=== PATIENT | male | born 1955 | race Caucasian/White ===

== ENCOUNTER 2023-08-20 01:08 | Inpatient (IN) | payer MEDICARE ==
[2023-08-20] MEDS: SODIUM CHLORIDE 0.9% 1,000 ML IV ONE ×2 (01:11→02:45)
[2023-08-20] MEDS: ETOMIDATE 2 MG/ML 10 ML VIAL IVP STA (01:12)
[2023-08-20 01:13] LABS: Glucose,Whole Blood 183 mg/dL (70-110)
[2023-08-20] MEDS: SUCCINYLCHOLINE CHLORIDE 200 MG/10 ML VIAL IV ONE (01:13)
--- NOTE | 2023-08-20 01:17 | ED ---
Altered Mental Status HPI - General Stated Complaint: Difficulty Breathing Time Seen by Provider: 08/20/23 01:08 Source: EMS Mode of arrival: EMS Limitations: altered mental status - History of Present Illness Initial Comments: This patient is 67-year-old man brought by ambulance to have evaluation. They report they were called to the scene for shortness of breath. As they were in the process of loading and transporting the patient to the hospital he became less responsive and they stated that they needed to support his respirations with the [id number]. The patient is unresponsive on arrival not able to give any history. EMS reports patient's systolic blood pressure was over 200 during transport MD Complaint: altered mental status, other (Dyspnea) -: unknown Severity: severe Treatments Prior to Arrival: oxygen - Related Data Home Medications Medication Instructions Recorded Confirmed Amiodarone [Cordarone] 200 mg PO DAILY 08/20/23 08/20/23 Cholecalciferol [Vitamin D3 (25 25 mcg PO DAILY 08/20/23 08/20/23 Mcg = 1000 Iu)] Ezetimibe [Zetia] 10 mg PO DAILY 08/20/23 08/20/23 Glucosamine/Chondr Escobedo A Sod [Osteo 1 tab PO DAILY 08/20/23 08/20/23 Bi-Flex Caplet] Metoprolol Succinate (ER) [Toprol 100 mg PO DAILY 08/20/23 08/20/23 XL] Multivitamins, Thera [Multivitamin 1 tab PO DAILY 08/20/23 08/20/23 (formulary)] Pravastatin Sodium [Pravachol] 40 mg PO HS 08/20/23 08/20/23 Rivaroxaban [Xarelto] 20 mg PO DAILY 08/20/23 08/20/23 Tiotropium 18 Mcg/Puff [Spiriva] 1 puff INHALATION RT-DAILY 08/20/23 08/20/23 Zinc Gluconate [Zinc] 50 mg PO DAILY 08/20/23 08/20/23 Previous Rx's Medication Instructions Recorded Budesonide-Formot 160-4.5 Mcg 2 puff INHALATION RT-BID #1 each 08/24/23 [Symbicort 160-4.5 Mcg Inhaler] Cefdinir 300 mg PO Q12HR #2 cap 08/24/23 Nicotine 21Mg/24Hr Patch [Habitrol] 1 patch TRANSDERM DAILY #30 patch 08/24/23 Pantoprazole [Protonix] 40 mg PO AC-BRKFST #60 tab 08/24/23 predniSONE [Deltasone] 20 mg PO DAILY #2 tab 08/24/23 Allergies Allergy/AdvReac Type Severity Reaction Status Date / Time No Known Allergies Allergy Verified 08/20/23 08:48 Review of Systems ROS Statement: Those systems with pertinent positive or pertinent negative responses have been documented in the HPI. ROS Other: All systems not noted in ROS Statement are negative. Limitations: ROS unobtainable due to patients medical condition Respiratory: Reports: dyspnea General Exam Limitations: altered mental status General appearance: obtunded Head exam: Present: atraumatic, normocephalic Eye exam: Present: normal appearance, PERRL. Absent: scleral icterus, conjunctival injection ENT exam: Present: normal oropharynx Neck exam: Present: normal inspection. Absent: tenderness Respiratory exam: Present: respiratory distress, rales Cardiovascular Exam: Present: regular rate, normal rhythm, normal heart sounds. Absent: diastolic murmur, rubs, gallop GI/Abdominal exam: Present: soft. Absent: distended, tenderness, guarding, rebound, rigid, mass Extremities exam: Present: normal inspection, normal capillary refill. Absent: pedal edema, calf tenderness Back exam: Present: normal inspection Neurological exam: Present: altered, CN II-XII intact. Absent: motor sensory deficit Skin exam: Present: warm, intact, normal color, diaphoretic. Absent: rash Course Vital Signs 08/20/23 08/20/23 08/20/23 01:11 01:31 02:06 Temperature Pulse Rate 72 Respiratory 10 L Rate Blood Pressure 174/89 O2 Sat by Pulse 99 Oximetry Fraction of 100 50 Inspired Oxygen (FIO2) 08/20/23 08/20/23 08/20/23 02:10 02:23 02:30 Temperature 97.9 F Pulse Rate 77 76 78 Respiratory 15 28 H 28 H Rate Blood Pressure 79/39 76/42 75/38 O2 Sat by Pulse 98 96 96 Oximetry Fraction of Inspired Oxygen (FIO2) 08/20/23 08/20/23 08/20/23 02:40 02:50 03:00 Temperature Pulse Rate 77 75 74 Respiratory 28 H 28 H 28 H Rate Blood Pressure 72/38 73/43 72/38 O2 Sat by Pulse 95 95 95 Oximetry Fraction of Inspired Oxygen (FIO2) 08/20/23 08/20/23 08/20/23 03:10 03:20 03:30 Temperature Pulse Rate 72 72 70 Respiratory 28 H 28 H 28 H Rate Blood Pressure 69/38 72/37 73/41 O2 Sat by Pulse 96 96 96 Oximetry Fraction of Inspired Oxygen (FIO2) 08/20/23 08/20/23 08/20/23 03:40 03:50 04:00 Temperature 97.0 F L Pulse Rate 68 66 61 Respiratory 28 H 28 H 28 H Rate Blood Pressure 77/38 73/43 79/51 O2 Sat by Pulse 96 96 98 Oximetry Fraction of Inspired Oxygen (FIO2) 08/20/23 08/20/23 08/20/23 04:05 04:10 04:15 Temperature 96.8 F L Pulse Rate 60 60 58 L Respiratory 28 H 28 H 28 H Rate Blood Pressure 91/65 91/65 104/65 O2 Sat by Pulse 100 100 99 Oximetry Fraction of Inspired Oxygen (FIO2) 08/20/23 08/20/23 08/20/23 04:20 04:25 04:30 Temperature Pulse Rate 58 L 57 L 58 L Respiratory 28 H 28 H 28 H Rate Blood Pressure 102/64 102/61 104/65 O2 Sat by Pulse 99 99 98 Oximetry Fraction of Inspired Oxygen (FIO2) 08/20/23 08/20/23 08/20/23 04:50 04:55 05:00 Temperature Pulse Rate 58 L 58 L 58 L Respiratory 28 H 25 H 28 H Rate Blood Pressure 127/64 101/52 84/44 O2 Sat by Pulse 100 99 99 Oximetry Fraction of Inspired Oxygen (FIO2) 08/20/23 08/20/23 08/20/23 05:05 05:10 05:15 Temperature Pulse Rate 58 L 57 L 57 L Respiratory 28 H 28 H 28 H Rate Blood Pressure 93/57 96/56 99/61 O2 Sat by Pulse 99 99 99 Oximetry Fraction of Inspired Oxygen (FIO2) 08/20/23 05:20 Temperature Pulse Rate 57 L Respiratory 28 H Rate Blood Pressure 100/58 O2 Sat by Pulse 99 Oximetry Fraction of Inspired Oxygen (FIO2) Procedures - Central Line Placement Right Femoral Consent Obtained: emergent situation Patient Placed on Monitor/Pulse Ox: Yes Prep: mask, gown, gloves Central Line Prep: Chlorhexidine scrub Local Anesthesia Used: Lidocaine 1% Central Line Lumen Inserted: triple Central Line Position: good blood return, all ports aspirated, flushed, capped, sutured in place with 3-0 nylon Dressing Applied: Tegaderm Patient Tolerated Procedure: well, no complications Complications: none - Intubation Sedative: Etomidate Paralytic: Succinylcholine Laryngoscope: Ray Size: 3 ET Tube Size: 8 ET Tube Uncuffed: No Tube Secured Depth (cm): 25 Tube Secured Location: lips Tube Placement Confirmation: visualized tube passing through cords, equal breath sounds bilaterally, no breath sounds over epigastrium, confirmation by capnometry Patient Tolerated Procedure: well, no complications Intubation Complications: none Medical Decision Making - Medical Decision Making Patient is a 67-year-old man arriving by ambulance in severe respiratory distress. The patient is unresponsive on arrival and therefore intubated after IV line is started and medications can be administered. See the procedure note. The clinical picture appears consistent with hypertensive emergency and acute respiratory failure. Following intubation, the patient's blood pressure declines and he is given initial fluid bolus and then as he remains hypertensive, patient has central line placement for pressor administration. Blood gases do show acidosis present. The patient is given 1 amp of bicarb and ventilator settings adjusted. Suspect there is degree of underlying COPD though no history known Patient is seen by pulmonology service, be admitted to the ICU. CT scan of the brain does not reveal acute pathology, by my interpretation The patient had chest x-ray which I interpreted as negative for acute infil trate, pneumothorax, congestive heart failure Case discussed with medicine on-call and patient be admitted to ICU. Was pt. sent in by a medical professional or institution (JIMMY King, INDUSTRIAL ECOLOGY TECHNICIAN, urgent care, hospital, or skilled nursing...) When possible be specific @ -[No] Did you speak to anyone other than the patient for history (EMS, parent, family, police, friend...)? What history was obtained from this source @ -[EMS gave most of the history as the patient is in severe respiratory distress Did you review nursing and triage notes (agree or disagree)? Why? @ -[I reviewed and agree with nursing and triage notes] Were old charts reviewed (outside hosp., previous admission, EMS record, old EKG, old radiological studies, urgent care reports/EKG's, skilled nursing records)? Report findings @ -[No old charts were reviewed] Differential Diagnosis (chest pain, altered mental status, abdominal pain women, abdominal pain men, vaginal bleeding, weakness, fever, dyspnea, syncope, headache, dizziness, GI bleed, back pain, seizure, CVA, palpatations, mental health, musculoskeletal)? @ -[Differential Dyspnea: Coronary syndrome, arrhythmia, tamponade, asthma, COPD, pulmonary embolism, pneumonia, pneumothorax, pulmonary effusion, anaphylaxis, diabetic ketoacidosis, flailed chest, pulmonary contusion, diaphragmatic rupture, anemia, neuromuscular, this is not meant to be an all-inclusive list. EKG interpreted by me (3pts min.). @ -[I interpreted as above X-rays interpreted by me (1pt min.). @ -[I interpreted as above CT interpreted by me (1pt min.). @ -[I interpreted as above U/S interpreted by me (1pt. min.). @ -[None done] What testing was considered but not performed or refused? (CT, X-rays, U/S, labs)? Why? @ -[None] What meds were considered but not given or refused? Why? @ -[None] Did you discuss the management of the patient with other professionals (professionals i.e. , PA, INDUSTRIAL ECOLOGY TECHNICIAN, lab, RT, psych nurse, social science manager, automotive software engineer, teacher, mechanical engineering officer, heel caser)? Give summary @ -[The case is discussed with admitting physician and also with pulmonology on-call for critical care management Was smoking cessation discussed for >3mins.? @ -[No] Was critical care preformed (if so, how long)? @ -Yes, 50 minutes Were there social determinants of health that impacted care today? How? (Homelessness, low income, unemployed, alcoholism, drug addiction, transportation, low edu. Level, literacy, decrease access to med. care, senior living, rehab)? @ -[No] Was there de-escalation of care discussed even if they declined (Discuss DNR or withdrawal of care, Hospice)? DNR status @ -[No] What co-morbidities impacted this encounter? (DM, HTN, Smoking, COPD, CAD, Cancer, CVA, ARF, Chemo, Hep., AIDS, mental health diagnosis, sleep apnea, morbid obesity)? @ -[None] Was patient admitted / discharged? Hospital course, mention meds given and route, prescriptions, significant lab abnormalities, going to OR and other pertinent info. @ -[See above Undiagnosed new problem with uncertain prognosis? @ -[No] Drug Therapy requiring intensive monitoring for toxicity (Heparin, Nitro, Insulin, Cardizem)? @ -[Yes, propofol Were any procedures done? @ -[No] Diagnosis/symptom? @ -[Acute hypercarbic respiratory failure Probable COPD Acute, or Chronic, or Acute on Chronic? @ -[Acute Uncomplicated (without systemic symptoms) or Complicated (systemic symptoms)? @ -[Complicated Side effects of treatment? @ -[No] Exacerbation, Progression, or Severe Exacerbation? @ -[No] Poses a threat to life or bodily function? How? (Chest pain, [place], [place], pneumonia, PE, COPD, DKA, ARF, appy, cholecystitis, CVA, Diverticulitis, Homicidal, Suicidal, threat to staff... and all critical care pts) @ -[Yes - Lab Data Result diagrams: 08/23/23 05:38 08/23/23 05:38 Lab Results 08/20/23 08/20/23 08/20/23 Range/Units 01:11 01:43 01:43 WBC 14.4 H (3.8-10.6) k/uL RBC 5.22 (4.30-5.90) m/uL Hgb 16.6 (13.0-17.5) gm/dL Hct 53.2 H (39.0-53.0) % MCV 102.0 H (80.0-100.0) fL MCH 31.8 (25.0-35.0) pg MCHC 31.2 (31.0-37.0) g/dL RDW 12.7 (11.5-15.5) % Plt Count 177 (150-450) k/uL MPV 11.2 Neutrophils % 68 % Lymphocytes % 16 % Monocytes % 11 % Eosinophils % 1 % Basophils % 0 % Neutrophils # 9.8 H (1.3-7.7) k/uL Lymphocytes # 2.3 (1.0-4.8) k/uL Monocytes # 1.6 H (0-1.0) k/uL Eosinophils # 0.2 (0-0.7) k/uL Basophils # 0.1 (0-0.2) k/uL Hypochromasia Slight Macrocytosis Slight PT 13.0 H (10.0-12.5) sec INR 1.2 H (<1.2) APTT 24.6 (22.0-30.0) sec D-Dimer 0.41 (<0.60) mg/L FEU Sample Site ABG pH (7.35-7.45) ABG pCO2 (35-45) mmHg ABG pO2 (83-108) mmHg ABG HCO3 (21-25) mmol/L ABG Total CO2 (19-24) mmol/L ABG O2 Saturation (94-97) % ABG Base Excess mmol/L Wicho Test FiO2 % Sodium (137-145) mmol/L Potassium (3.5-5.1) mmol/L Chloride (98-107) mmol/L Carbon Dioxide (22-30) mmol/L Anion Gap mmol/L BUN (9-20) mg/dL Creatinine (0.66-1.25) mg/dL Est GFR (CKD-EPI)AfAm (>60 ml/min/1.73 sqM) Est GFR (CKD-EPI)NonAf (>60 ml/min/1.73 sqM) Glucose (74-99) mg/dL POC Glucose (mg/dL) 183 H (70-110) mg/dL POC Glu Front Line Supervisor ID Clint Vasquez Plasma Lactic Acid Kyle (0.7-2.0) mmol/L Calcium (8.4-10.2) mg/dL Magnesium (1.6-2.3) mg/dL Total Bilirubin (0.2-1.3) mg/dL AST (17-59) U/L ALT (4-49) U/L Alkaline Phosphatase (38-126) U/L Troponin I (0.000-0.034) ng/mL NT-Pro-B Natriuret Pep pg/mL Total Protein (6.3-8.2) g/dL Albumin (3.5-5.0) g/dL Urine Color Urine Appearance (Clear) Urine pH (5.0-8.0) Ur Specific [place] (1.001-1.035) Urine Protein (Negative) Urine Glucose (UA) (Negative) Urine Ketones (Negative) Urine Blood (Negative) Urine Nitrite (Negative) Urine Bilirubin (Negative) Urine Urobilinogen (<2.0) mg/dL Ur Leukocyte Esterase (Negative) Urine RBC (0-5) /hpf Urine WBC (0-5) /hpf Hyaline Casts (0-2) /lpf Urine Mucus (None) /hpf Urine Yeast (Budding) (None) /hpf Influenza Type A (PCR) (Not Detectd) Influenza Type B (PCR) (Not Detectd) RSV (PCR) (Not Detectd) SARS-CoV-2 (PCR) (Not Detectd) 08/20/23 08/20/23 08/20/23 Range/Units 01:43 01:43 01:43 WBC (3.8-10.6) k/uL RBC (4.30-5.90) m/uL Hgb (13.0-17.5) gm/dL Hct (39.0-53.0) % MCV (80.0-100.0) fL MCH (25.0-35.0) pg MCHC (31.0-37.0) g/dL RDW (11.5-15.5) % Plt Count (150-450) k/uL MPV Neutrophils % % Lymphocytes % % Monocytes % % Eosinophils % % Basophils % % Neutrophils # (1.3-7.7) k/uL Lymphocytes # (1.0-4.8) k/uL Monocytes # (0-1.0) k/uL Eosinophils # (0-0.7) k/uL Basophils # (0-0.2) k/uL Hypochromasia Macrocytosis PT (10.0-12.5) sec INR (<1.2) APTT (22.0-30.0) sec D-Dimer (<0.60) mg/L FEU Sample Site ABG pH (7.35-7.45) ABG pCO2 (35-45) mmHg ABG pO2 (83-108) mmHg ABG HCO3 (21-25) mmol/L ABG Total CO2 (19-24) mmol/L ABG O2 Saturation (94-97) % ABG Base Excess mmol/L Wicho Test FiO2 % Sodium 142 (137-145) mmol/L Potassium 4.8 (3.5-5.1) mmol/L Chloride 105 (98-107) mmol/L Carbon Dioxide 30 (22-30) mmol/L Anion Gap 7 mmol/L BUN 19 (9-20) mg/dL Creatinine 0.57 L (0.66-1.25) mg/dL Est GFR (CKD-EPI)AfAm >90 (>60 ml/min/1.73 sqM) Est GFR (CKD-EPI)NonAf >90 (>60 ml/min/1.73 sqM) Glucose 212 H (74-99) mg/dL POC Glucose (mg/dL) (70-110) mg/dL POC Glu Front Line Supervisor ID Plasma Lactic Acid Kyle 1.0 (0.7-2.0) mmol/L Calcium 9.9 (8.4-10.2) mg/dL Magnesium 1.8 (1.6-2.3) mg/dL Total Bilirubin 0.9 (0.2-1.3) mg/dL AST 28 (17-59) U/L ALT 20 (4-49) U/L Alkaline Phosphatase 121 (38-126) U/L Troponin I <0.012 (0.000-0.034) ng/mL NT-Pro-B Natriuret Pep 291 pg/mL Total Protein 7.7 (6.3-8.2) g/dL Albumin 4.5 (3.5-5.0) g/dL Urine Color Urine Appearance (Clear) Urine pH (5.0-8.0) Ur Specific [place] (1.001-1.035) Urine Protein (Negative) Urine Glucose (UA) (Negative) Urine Ketones (Negative) Urine Blood (Negative) Urine Nitrite (Negative) Urine Bilirubin (Negative) Urine Urobilinogen (<2.0) mg/dL Ur Leukocyte Esterase (Negative) Urine RBC (0-5) /hpf Urine WBC (0-5) /hpf Hyaline Casts (0-2) /lpf Urine Mucus (None) /hpf Urine Yeast (Budding) (None) /hpf Influenza Type A (PCR) (Not Detectd) Influenza Type B (PCR) (Not Detectd) RSV (PCR) (Not Detectd) SARS-CoV-2 (PCR) (Not Detectd) 08/20/23 08/20/23 08/20/23 Range/Units 01:55 02:04 02:05 WBC (3.8-10.6) k/uL RBC (4.30-5.90) m/uL Hgb (13.0-17.5) gm/dL Hct (39.0-53.0) % MCV (80.0-100.0) fL MCH (25.0-35.0) pg MCHC (31.0-37.0) g/dL RDW (11.5-15.5) % Plt Count (150-450) k/uL MPV Neutrophils % % Lymphocytes % % Monocytes % % Eosinophils % % Basophils % % Neutrophils # (1.3-7.7) k/uL Lymphocytes # (1.0-4.8) k/uL Monocytes # (0-1.0) k/uL Eosinophils # (0-0.7) k/uL Basophils # (0-0.2) k/uL Hypochromasia Macrocytosis PT (10.0-12.5) sec INR (<1.2) APTT (22.0-30.0) sec D-Dimer (<0.60) mg/L FEU Sample Site rrad ABG pH 7.11 L* (7.35-7.45) ABG pCO2 94 H* (35-45) mmHg ABG pO2 >400 H (83-108) mmHg ABG HCO3 30 H (21-25) mmol/L ABG Total CO2 33 H (19-24) mmol/L ABG O2 Saturation 100.0 H (94-97) % ABG Base Excess 0.6 mmol/L Wicho Test Yes FiO2 100 % Sodium (137-145) mmol/L Potassium (3.5-5.1) mmol/L Chloride (98-107) mmol/L Carbon Dioxide (22-30) mmol/L Anion Gap mmol/L BUN (9-20) mg/dL Creatinine (0.66-1.25) mg/dL Est GFR (CKD-EPI)AfAm (>60 ml/min/1.73 sqM) Est GFR (CKD-EPI)NonAf (>60 ml/min/1.73 sqM) Glucose (74-99) mg/dL POC Glucose (mg/dL) (70-110) mg/dL POC Glu Front Line Supervisor ID Plasma Lactic Acid Kyle (0.7-2.0) mmol/L Calcium (8.4-10.2) mg/dL Magnesium (1.6-2.3) mg/dL Total Bilirubin (0.2-1.3) mg/dL AST (17-59) U/L ALT (4-49) U/L Alkaline Phosphatase (38-126) U/L Troponin I (0.000-0.034) ng/mL NT-Pro-B Natriuret Pep pg/mL Total Protein (6.3-8.2) g/dL Albumin (3.5-5.0) g/dL Urine Color Colorless Urine Appearance Clear (Clear) Urine pH 6.5 (5.0-8.0) Ur Specific [place] 1.021 (1.001-1.035) Urine Protein 3+ H (Negative) Urine Glucose (UA) Negative (Negative) Urine Ketones 1+ H (Negative) Urine Blood Small H (Negative) Urine Nitrite Negative (Negative) Urine Bilirubin Negative (Negative) Urine Urobilinogen <2.0 (<2.0) mg/dL Ur Leukocyte Esterase Negative (Negative) Urine RBC 8 H (0-5) /hpf Urine WBC 2 (0-5) /hpf Hyaline Casts 6 H (0-2) /lpf Urine Mucus Rare H (None) /hpf Urine Yeast (Budding) Rare H (None) /hpf Influenza Type A (PCR) Not Detected (Not Detectd) Influenza Type B (PCR) Not Detected (Not Detectd) RSV (PCR) Not Detected (Not Detectd) SARS-CoV-2 (PCR) Not Detected (Not Detectd) - EKG Data -: EKG Interpreted by Nv EKG shows normal: sinus rhythm, intervals (Normal), QRS complexes Rate: normal (Rate 74 bpm) Interpretation: nonspecific ST-T wave changes Critical Care Time Critical Care Time: Yes (40 minutes) Disposition Clinical Impression: Acute respiratory failure, Respiratory acidosis, Leukocytosis Disposition: ADMITTED IP TO THIS HOSP Condition: Stable Is patient prescribed a controlled substance at d/c from ED?: No
[2023-08-20] MEDS: LORazepam 2 MG/ML INJ IV STA ×2 (01:25→02:19)
[2023-08-20] MEDS: MORPHINE SULFATE 4 MG/ML SYRINGE IV STA (01:47)
[2023-08-20 01:57] LABS: Allen Test Performed? Yes
[2023-08-20 01:58] LABS: ABG Base Excess 0.6 mmol/L; ABG HCO3 30 mmol/L (21-25); ABG PO2 >400 mmHg (83-108); ABG TCO2 33 mmol/L (19-24)
[2023-08-20 02:03] LABS: ALT 20 U/L (4-49); AST 28 U/L (17-59); African American GFR (CKD) >90 (>60 ml/min/1.73 sqM); Albumin 4.5 g/dL (3.5-5.0); Alkaline Phosphatase 121 U/L (38-126); Anion Gap 7 mmol/L; Blood Urea Nitrogen 19 mg/dL (9-20); Calcium 9.9 mg/dL (8.4-10.2); Carbon Dioxide 30 mmol/L (22-30); Chloride 105 mmol/L (98-107); Glucose 212 mg/dL (74-99); Magnesium 1.8 mg/dL (1.6-2.3); Non-African American GFR(CKD) >90 (>60 ml/min/1.73 sqM); Potassium 4.8 mmol/L (3.5-5.1); Sodium 142 mmol/L (137-145); Total Bilirubin 0.9 mg/dL (0.2-1.3); Total Protein 7.7 g/dL (6.3-8.2)
[2023-08-20 02:08] LABS: ABG PCO2 94 mmHg (35-45); ABG PH 7.11 (7.35-7.45)
[2023-08-20 02:12] LABS: NT-Pro-B-Type Natriuretic Pept 291 pg/mL
[2023-08-20 02:23] LABS: Basophils # (A) 0.1 k/uL (0-0.2); Basophils % (A) 0 %; Eosinophils # (A) 0.2 k/uL (0-0.7); Eosinophils % (A) 1 %; HCT 53.2 % (39.0-53.0); HGB 16.6 gm/dL (13.0-17.5); Hypochromasia Slight; Lymphocytes # (A) 2.3 k/uL (1.0-4.8); Lymphocytes % (A) 16 %; MCH 31.8 pg (25.0-35.0); MCHC 31.2 g/dL (31.0-37.0); Macrocytosis Slight; Mean Platelet Volume 11.2; Monocytes # (A) 1.6 k/uL (0-1.0); Monocytes % (A) 11 %; Neutrophils # (A) 9.8 k/uL (1.3-7.7); Neutrophils % (A) 68 %; Platelet Count 177 k/uL (150-450); RBC 5.22 m/uL (4.30-5.90); RDW 12.7 % (11.5-15.5); WBC 14.4 k/uL (3.8-10.6)
[2023-08-20 02:33] LABS: INR 1.2 (<1.2); Partial Thromboplastin Time 24.6 sec (22.0-30.0)
[2023-08-20 02:59] LABS: Appearance,Urine Clear (Clear); Bilirubin,Urine Negative (Negative); Blood,Urine Small (Negative); Budding Yeast,Urine Rare /hpf; Color,Urine Colorless; Glucose,Urine (UA) Negative (Negative); Hyaline Casts,Urine 6 /lpf (0-2); Ketones,Urine 1+ (Negative); Leukocyte Esterase,Urine Negative (Negative); Mucus,Urine Rare /hpf; Nitrite,Urine Negative (Negative); PH, Urine 6.5 (5.0-8.0); Protein,Urine 3+ (Negative); RBC,Urine 8 /hpf (0-5); Specific Gravity,Urine 1.021 (1.001-1.035); Urobilinogen,Urine <2.0 mg/dL (<2.0); WBC,Urine 2 /hpf (0-5)
[2023-08-20] MEDS: SODIUM BICARB 8.4% 50 ML SYR (1 MEQ/ML) IV STA (03:13)
--- NOTE | 2023-08-20 03:23 | XR ---
EXAM: XR Chest, 1 View CLINICAL HISTORY: ITS.REASON XR Reason: dyspnea TECHNIQUE: Frontal view of the chest. COMPARISON: No relevant prior studies available. FINDINGS: Lungs: See below. Pleural space: See below. Heart: Cardiomegaly. Mediastinum: Unremarkable. Normal mediastinal contour. Bones/joints: Unremarkable. No acute fracture. Tubes, lines and devices: Endotracheal tube terminates 6.7 cm above the theresa. Feeding tube or vascular congestion and small bilateral pleural effusions, consistent with congestive heart failure. IMPRESSION: Feeding tube or vascular congestion and small bilateral pleural effusions, consistent with congestive heart failure.
[2023-08-20] MEDS: NOREPINEPHRINE 32 MG in SODIUM CHLORIDE 0.9% 218 ML IV ONE (03:36)
[2023-08-20] MEDS: FUROSEMIDE 10 MG/ML 4 ML VIAL IV STA (04:46)
[2023-08-20] MEDS ORDERED: NALOXONE 0.4 MG/ML 1 ML VIAL IV PRN (04:50)
[2023-08-20] MEDS ORDERED: ACETAMINOPHEN SUPPOSITORY 650 MG SUPP RECTAL PRN (04:50)
[2023-08-20] MEDS ORDERED: ARTIFICIAL TEARS OINTMENT 3.5 GM TUBE BOTH EYES PRN (04:50)
[2023-08-20] MEDS ORDERED: IPRATROPIUM-ALBUTEROL 3 ML NEB INHALATION PRN (04:50)
[2023-08-20] MEDS: SODIUM CHLORIDE 0.9% 1,000 ML IV SCH (05:19)
[2023-08-20 05:40] LABS: Glucose,Whole Blood 141 mg/dL (70-110)
--- NOTE | 2023-08-20 05:51 | P.HPIM ---
History of Present Illness H&P Date: 08/20/23 Chief Complaint: Shortness of breath unresponsive 67-year-old male unknown past medical history, which was obtained by reviewing medical records and discussing the case with ED doctor. Seems like EMS was notified to evaluate the patient due to shortness of breath. Which she became less responsive as he was in the route for which he needed some support for his breathing with the [id number]. Upon arrival to the ED he was totally unresponsive unable to provide any meaningful history. Patient was intubated and secured. EMS noted that he was hypertensive with systolic over [address] scan of the brain showed no acute intracranial pathology Chest x-ray was suggestive of flash pulmonary edema picture with a background of elevated blood pressure added that she is away from home , and that he did not feel well for few days now review of systems Unable to obtain due to mental status on exam Constitutional: Unresponsive on mechanical ventilation Eyes: Anicteric sclerae, moist conjunctiva, Pupils equal round reactive to light ENMT: NC/AT Neck: Supple, no masses, or JVD No carotid bruits No thyromegaly Lungs: Clear to auscultation Clear to percussion Normal respiratory effort, no accessory muscle use Cardiovascular: Heart regular in rate and rhythm, No murmurs, gallops, or rubs No peripheral edema Abdominal: Soft Nontender, no guarding, rebound or rigidity Abdomen moving with respiration Normoactive bowel sounds Extremities: No digital cyanosis No clubbing Pedal pulses intact and symmetrical Radial pulses intact and symmetrical No calf tenderness Psychiatric: Unresponsive intubated and vented Neuro unable to assess Past Medical History Past Medical History: Atrial Fibrillation, COPD, Hypertension History of Any Multi-Drug Resistant Organisms: Unobtainable Past Surgical History: Unable to Obtain Past Psychological History: Unable to Obtain Smoking Status: Unknown if ever smoked Medications and Allergies Allergies Allergy/AdvReac Type Severity Reaction Status Date / Time Unable to Assess Allergy Verified 08/20/23 01:18 Physical Exam Vitals: Vital Signs Temp Pulse Resp BP Pulse Ox FiO2 08/20/23 05:20 57 L 28 H 100/58 99 08/20/23 05:15 57 L 28 H 99/61 99 08/20/23 05:10 57 L 28 H 96/56 99 08/20/23 05:05 58 L 28 H 93/57 99 08/20/23 05:00 58 L 28 H 84/44 99 08/20/23 04:55 58 L 25 H 101/52 99 08/20/23 04:50 58 L 28 H 127/64 100 08/20/23 04:30 58 L 28 H 104/65 98 08/20/23 04:25 57 L 28 H 102/61 99 08/20/23 04:20 58 L 28 H 102/64 99 08/20/23 04:15 58 L 28 H 104/65 99 08/20/23 04:10 60 28 H 91/65 100 08/20/23 04:05 96.8 F L 60 28 H 91/65 100 08/20/23 04:00 61 28 H 79/51 98 08/20/23 03:50 97.0 F L 66 28 H 73/43 96 08/20/23 03:40 68 28 H 77/38 96 08/20/23 03:30 70 28 H 73/41 96 08/20/23 03:20 72 28 H 72/37 96 08/20/23 03:10 72 28 H 69/38 96 08/20/23 03:00 74 28 H 72/38 95 08/20/23 02:50 75 28 H 73/43 95 08/20/23 02:40 77 28 H 72/38 95 08/20/23 02:30 78 28 H 75/38 96 08/20/23 02:23 76 28 H 76/42 96 08/20/23 02:10 97.9 F 77 15 79/39 98 08/20/23 02:06 50 08/20/23 01:31 100 08/20/23 01:30 100 08/20/23 01:11 72 10 L 174/89 99 Intake and Output 08/19/23 08/19/23 08/20/23 14:59 22:59 06:59 Intake Total 6.186 Balance 6.186 Intake: Intake, IV Titration 6.186 Amount Norepinephrine 32 mg In 2.835 Sodium Chloride 0.9% 218 ml @ 0.03 MCG/KG/MIN 1.57 mls/hr IV .Q24H [facility] Rx#: [id number] propofoL 1,000 mg In 3.351 Empty Bag 1 bag @ 15 MCG/ KG/MIN 10.051 mls/hr IV . Q9H57M [facility] Rx#:[id number] Other: Weight 111.674 kg Results CBC & Chem 7: 08/20/23 01:43 08/20/23 01:43 Labs: Abnormal Lab Results - Last 24 Hours (Table) 08/20/23 08/20/23 08/20/23 Range/Units 01:11 01:43 01:43 WBC 14.4 H (3.8-10.6) k/uL Hct 53.2 H (39.0-53.0) % MCV 102.0 H (80.0-100.0) fL Neutrophils # 9.8 H (1.3-7.7) k/uL Monocytes # 1.6 H (0-1.0) k/uL PT 13.0 H (10.0-12.5) sec INR 1.2 H (<1.2) ABG pH (7.35-7.45) ABG pCO2 (35-45) mmHg ABG pO2 (83-108) mmHg ABG HCO3 (21-25) mmol/L ABG Total CO2 (19-24) mmol/L ABG O2 Saturation (94-97) % Creatinine (0.66-1.25) mg/dL Glucose (74-99) mg/dL POC Glucose (mg/dL) 183 H (70-110) mg/dL Urine Protein (Negative) Urine Ketones (Negative) Urine Blood (Negative) Urine RBC (0-5) /hpf Hyaline Casts (0-2) /lpf Urine Mucus (None) /hpf Urine Yeast (Budding) (None) /hpf 08/20/23 08/20/23 08/20/23 Range/Units 01:43 01:55 02:05 WBC (3.8-10.6) k/uL Hct (39.0-53.0) % MCV (80.0-100.0) fL Neutrophils # (1.3-7.7) k/uL Monocytes # (0-1.0) k/uL PT (10.0-12.5) sec INR (<1.2) ABG pH 7.11 L* (7.35-7.45) ABG pCO2 94 H* (35-45) mmHg ABG pO2 >400 H (83-108) mmHg ABG HCO3 30 H (21-25) mmol/L ABG Total CO2 33 H (19-24) mmol/L ABG O2 Saturation 100.0 H (94-97) % Creatinine 0.57 L (0.66-1.25) mg/dL Glucose 212 H (74-99) mg/dL POC Glucose (mg/dL) (70-110) mg/dL Urine Protein 3+ H (Negative) Urine Ketones 1+ H (Negative) Urine Blood Small H (Negative) Urine RBC 8 H (0-5) /hpf Hyaline Casts 6 H (0-2) /lpf Urine Mucus Rare H (None) /hpf Urine Yeast (Budding) Rare H (None) /hpf 08/20/23 Range/Units 05:37 WBC (3.8-10.6) k/uL Hct (39.0-53.0) % MCV (80.0-100.0) fL Neutrophils # (1.3-7.7) k/uL Monocytes # (0-1.0) k/uL PT (10.0-12.5) sec INR (<1.2) ABG pH (7.35-7.45) ABG pCO2 (35-45) mmHg ABG pO2 (83-108) mmHg ABG HCO3 (21-25) mmol/L ABG Total CO2 (19-24) mmol/L ABG O2 Saturation (94-97) % Creatinine (0.66-1.25) mg/dL Glucose (74-99) mg/dL POC Glucose (mg/dL) 141 H (70-110) mg/dL Urine Protein (Negative) Urine Ketones (Negative) Urine Blood (Negative) Urine RBC (0-5) /hpf Hyaline Casts (0-2) /lpf Urine Mucus (None) /hpf Urine Yeast (Budding) (None) /hpf Assessment and Plan Assessment: 67-year-old male with unknown past medical history was brought clinical the hospital by ambulance for acute shortness of breath he became unresponsive upon arrival he was intubated I discussed the case with ED doctor and accepted the admission for acute hypoxic respiratory failure vent dependent with anticipated length of stay more than 2 midnights Acute hypoxic and hypercapnic respiratory failure Acute metabolic encephalopathy Acute respiratory acidosis Supportive care ICU admission Vent care per ICU protocol CT of the brain no acute intracranial pathology ICU consult Acute respiratory viral panel negative for COVID influenza and RSV Chest x-ray showed picture suggestive of flash pulmonary edema with pulmonary vascular congestion patient started waking up and currently on sedation Flash pulmonary edema Malignant hypertension After intubation patient became hypotensive requiring aggressive resuscitation with IV fluids Continue to monitor vital signs Patient given one-time dose of IV Lasix in the ED however became hypotensive Check echocardiogram Blood work showed elevated white count, afebrile White blood cell count 14.4 Hemoglobin 16.6 unremarkable Platelets 177 unremarkable Unknown source of infection Patient empirically given a dose of Rocephin 1 g IV piggyback in the ED continue with pneumonia coverage due to xray changes and history of SOB rocephine 2 gm IVPB daily azithromycin 500 mg IVPB daily follow up cultures Renal function unremarkable sodium 142 potassium 4.8 BUN 19 creatinine 0.5 Liver enzymes unremarkable Magnesium 1.8 Troponin is negative Guarded prognosis Full code DVT prophylaxis heparin subcu 3 times daily
[2023-08-20] MEDS ORDERED: DEXTROSE 50% SYRINGE 50 ML IVP PRN ×2 (05:53)
[2023-08-20 06:13] LABS: ABG Base Excess 5.1 mmol/L; ABG HCO3 31 mmol/L (21-25); ABG PCO2 54 mmHg (35-45); ABG PH 7.36 (7.35-7.45); ABG PO2 120 mmHg (83-108); ABG TCO2 32 mmol/L (19-24); Allen Test Performed? Yes
[2023-08-20] MEDS: INSULIN ASPART (NovoLOG) 100 UNIT/ML VIAL SQ SCH (06:25)
[2023-08-20] MEDS: AZITHROMYCIN 500 MG in SODIUM CHLORIDE 0.9% 250 ML IVPB SCH (06:30)
[2023-08-20] MEDS: methylPREDNISolone SOD SUCCI 125 MG/2 ML VIAL IV SCH (06:41)
[2023-08-20 06:46] LABS: Basophils % (A) 0 %; Eosinophils % (A) 0 %; HCT 44.3 % (39.0-53.0); HGB 14.1 gm/dL (13.0-17.5); Lymphocytes # (A) 0.5 k/uL (1.0-4.8); Lymphocytes % (A) 5 %; MCH 31.5 pg (25.0-35.0); MCHC 31.9 g/dL (31.0-37.0); MCV 98.9 fL (80.0-100.0); Monocytes # (A) 0.5 k/uL (0-1.0); Monocytes % (A) 6 %; Neutrophils # (A) 8.3 k/uL (1.3-7.7); Neutrophils % (A) 88 %; Platelet Count 156 k/uL (150-450); RBC 4.48 m/uL (4.30-5.90); RDW 12.8 % (11.5-15.5); WBC 9.5 k/uL (3.8-10.6)
[2023-08-20 07:00] LABS: African American GFR (CKD) >90 (>60 ml/min/1.73 sqM); Anion Gap 7 mmol/L; Blood Urea Nitrogen 21 mg/dL (9-20); Calcium 9.1 mg/dL (8.4-10.2); Carbon Dioxide 28 mmol/L (22-30); Chloride 106 mmol/L (98-107); Glucose 188 mg/dL (74-99); Non-African American GFR(CKD) >90 (>60 ml/min/1.73 sqM); Potassium 4.2 mmol/L (3.5-5.1); Sodium 141 mmol/L (137-145)
--- NOTE | 2023-08-20 07:22 | CT ---
EXAM: CT Head Without Intravenous Contrast CLINICAL HISTORY: ITS.REASON CT Reason: altered mental status TECHNIQUE: Axial computed tomography images of the head/brain without intravenous contrast. CTDI is 49.2 mGy and DLP is 1242.4 mGy-cm. This CT exam was performed using one or more of the following dose reduction techniques: automated exposure control, adjustment of the mA and/or kV according to patient size, and/or use of iterative reconstruction technique. COMPARISON: No relevant prior studies available. FINDINGS: Brain: No acute intracranial abnormality. Consider MRI if there is further concern. Areas of decreased attenuation in the deep cerebral white matter are consistent with small vessel ischemic/degenerative changes. The cerebral and cerebellar sulci are prominent consistent with brain atrophy. No hemorrhage. Ventricles: Unremarkable. No ventriculomegaly. Bones/joints: Unremarkable. No acute fracture. Soft tissues: Unremarkable. Vasculature: Atherosclerotic disease. Sinuses: Unremarkable as visualized. Mastoid air cells: Unremarkable as visualized. No mastoid effusion. IMPRESSION: 1. No acute intracranial abnormality. Consider MRI if there is further concern. 2. Small vessel ischemic/degenerative changes. 3. Cerebral and cerebellar atrophy.
--- NOTE | 2023-08-20 07:39 | P.PCN ---
Date of Procedure: 08/20/23 Preoperative Diagnosis: Hypotension and shock Postoperative Diagnosis: Hypotension and shock Procedure(s) Performed: Insertion of a left wrist radial arterial line Indications for Procedure: Continuous blood pressure monitoring and frequent blood draws Description of Procedure: Informed consent was obtained, and a procedural timeout was performed . The patient was placed in supine position. The left radial region was prepared in a sterile fashion, and a sterile drape was applied. The left radial artery was palpated, easily cannulated, and a guidewire was placed. A Cook catheter was inserted over the guidewire, and the guidewire was removed. There was good arterial blood flow, good arterial waveform, and no complications. The line was secured with using a 3-0 silk suture.
--- NOTE | 2023-08-20 07:49 | P.CNPUL ---
History of Present Illness Consult date: 08/20/23 Requesting physician: Julio Cesar Quispe Reason for consult: other (Acute hypoxemic and hypercapnic respiratory failure requiring mechanical intubation and ICU management) Chief complaint: Respiratory distress and altered mental status History of present illness: I am seeing this patient in consultation today 08/20/2023 in the emergency room after he presents with acute respiratory distress requiring mechanical intubation and admission to the intensive care unit. Patient is a 67-year-old male with past medical history significant for COPD, chronic ongoing tobacco dependence, obstructive sleep apnea with home CPAP and supplemental oxygen, hypertension, atrial fibrillation anticoagulated on Xarelto, previous carotid artery dissection and CVA. Patient is currently intubated to the mechanical ventilator and unable to provide information. I did contact the patient's who ferrera in [place]. The patient does not like [place], and stays in [place] during this time. They have been conversing on the phone and reportedly he is felt unwell for the last 2 weeks. He reportedly has been short of breath and coughing. He does have COPD and utilizes a combination of Dulera inhaler, Spiriva inhaler, and as needed albuterol rescue inhaler. Earlier this morning, the patient did contact EMS, he was found to be in respiratory distress. He became altered and ultimately unresponsive. He was given BVM respirations, until transfer to the emergency room where he was emergently intubated. Of note, the patient was noted to have severe hypertension and round, with a systolic blood pressure recorded over 200. Postintubation chest x-ray shows the endotracheal tube 6.7 cm above the theresa and could be advanced 3 cm. There is cardiomegaly with pulmonary vascular congestion, and interst itial edema. There is also possible small to trace pleural effusions. Initial ABG postintubation showed a PaO2 of greater than 400, pCO2 of 94, and pH of 7.11, consistent with severe respiratory acidosis. Current ventilator settings include assist-control, respiratory rate of 28, tidal volume of 450, FiO2 of 50%, and PEEP of 5. He does have significant amount of pink frothy endotracheal secretions. Peak pressures are elevated at 35, and plateau pressure of 21. There is some airway resistance. He is sedated on propofol which is infusing at 30 mcg/kg/min and is synchronous with the ventilator. Blood pressure was previously hypertensive, but has become hypotensive postintubation. He did receive a dose of Lasix in the emergency room. Patient was given 2 L of normal saline in the emergency room. He was started on low-dose norepinephrine which is infusing at 0.04 mcg/kg/min. Heart rhythm on bedside monitor appears normal sinus. CBC on arrival unremarkable. No leukocytosis. BMP on arrival also unremarkable. Sodium 141, potassium 4.2, chloride 106, serum bicarb 28, BUN 21, creatinine 0.8, glucose 188. Initial troponin less than 0.012. EKG shows normal sinus rhythm with diffuse ST depression. NT proBNP not significantly elevated, 291. Negative for influenza, RSV, COVID.. He will be transferred to the intensive care unit once bed available. Review of Systems ROS unobtainable: due to endotracheal tube Past Medical History Past Medical History: Atrial Fibrillation, COPD, Hypertension Additional Past Medical History / Comment(s): Verified with , Priscilla 2023 History of Any Multi-Drug Resistant Organisms: Unobtainable Past Surgical History: Unable to Obtain Past Psychological History: Unable to Obtain Smoking Status: Unknown if ever smoked Medications and Allergies Allergies Allergy/AdvReac Type Severity Reaction Status Date / Time No Known Allergies Allergy Verified 08/20/23 06:07 Physical Exam Vitals: Vital Signs Temp Pulse Resp BP Pulse Ox FiO2 08/20/23 06:00 60 26 H 110/65 99 50 08/20/23 05:45 60 26 H 116/82 99 08/20/23 05:40 50 08/20/23 05:30 102/59 08/20/23 05:20 57 L 28 H 100/58 99 08/20/23 05:15 57 L 28 H 99/61 99 08/20/23 05:10 57 L 28 H 96/56 99 08/20/23 05:05 58 L 28 H 93/57 99 08/20/23 05:00 58 L 28 H 84/44 99 08/20/23 04:55 58 L 25 H 101/52 99 08/20/23 04:50 58 L 28 H 127/64 100 08/20/23 04:30 58 L 28 H 104/65 98 08/20/23 04:25 57 L 28 H 102/61 99 08/20/23 04:20 58 L 28 H 102/64 99 08/20/23 04:15 58 L 28 H 104/65 99 08/20/23 04:10 60 28 H 91/65 100 08/20/23 04:05 96.8 F L 60 28 H 91/65 100 08/20/23 04:00 61 28 H 79/51 98 08/20/23 03:50 97.0 F L 66 28 H 73/43 96 08/20/23 03:40 68 28 H 77/38 96 08/20/23 03:30 70 28 H 73/41 96 08/20/23 03:20 72 28 H 72/37 96 08/20/23 03:10 72 28 H 69/38 96 08/20/23 03:00 74 28 H 72/38 95 08/20/23 02:50 75 28 H 73/43 95 08/20/23 02:40 77 28 H 72/38 95 08/20/23 02:30 78 28 H 75/38 96 08/20/23 02:23 76 28 H 76/42 96 08/20/23 02:10 97.9 F 77 15 79/39 98 08/20/23 02:06 50 08/20/23 01:31 100 08/20/23 01:30 100 08/20/23 01:11 72 10 L 174/89 99 Intake and Output 08/19/23 08/19/23 08/20/23 14:59 22:59 06:59 Intake Total 187.093 Output Total 375 Balance -187.907 Intake: IV 100 Sodium Chloride 0.9% 1, 100 000 ml @ 100 mls/hr IV . Q10H [facility] Rx#:[id number] Intake, IV Titration 87.093 Amount Norepinephrine 32 mg In 2.835 Sodium Chloride 0.9% 218 ml @ 0.03 MCG/KG/MIN 1.57 mls/hr IV .Q24H [facility] Rx#: [id number] propofoL 1,000 mg In 84.258 Empty Bag 1 bag @ 15 MCG/ KG/MIN 10.051 mls/hr IV . Q9H57M [facility] Rx#:[id number] Output: Urine 375 Other: Weight 111.674 kg GENERAL EXAM: 67-year-old white male, unresponsive, sedated, and synchronous with mechanical ventilator. HEAD: Normocephalic and atraumatic EYES: Normal reaction of pupils, equal size. NOSE: Clear with pink turbinates. THROAT: No erythema or exudates. NECK: No masses, no JVD. CHEST: No chest wall deformity. LUNGS: Equal air entry with diffuse crackles and rhonchi. Intubated to the mechanical ventilator. Large amount of pink frothy secretions. CVS: S1 and S2 normal with no audible murmur, regular rhythm. No extra heart sounds ABDOMEN: No hepatosplenomegaly, active bowel sounds, no guarding or rigidity. SPINE: No scoliosis or deformity SKIN: No rashes CENTRAL NERVOUS SYSTEM: No focal deficits, tone is normal in all 4 extremities. EXTREMITIES: There is no peripheral edema, clubbing, or cyanosis. Peripheral pulses are intact. Results - Laboratory Findings CBC and BMP: 08/20/23 06:30 08/20/23 06:30 ABG ABG pH 7.36 (7.35-7.45) 08/20/23 06:10 ABG pCO2 54 mmHg (35-45) H 08/20/23 06:10 ABG pO2 120 mmHg (83-108) H 08/20/23 06:10 ABG O2 Saturation 98.0 % (94-97) H 08/20/23 06:10 PT/INR, D-dimer PT 13.0 sec (10.0-12.5) H 08/20/23 01:43 INR 1.2 (<1.2) H 08/20/23 01:43 D-Dimer 0.41 mg/L FEU (<0.60) 08/20/23 01:43 Abnormal lab findings: Abnormal Labs 08/20/23 08/20/23 08/20/23 01:11 01:43 01:43 WBC 14.4 H Hct 53.2 H MCV 102.0 H Neutrophils # 9.8 H Monocytes # 1.6 H PT 13.0 H INR 1.2 H ABG pH ABG pCO2 ABG pO2 ABG HCO3 ABG Total CO2 ABG O2 Saturation Creatinine Glucose POC Glucose (mg/dL) 183 H Urine Protein Urine Ketones Urine Blood Urine RBC Hyaline Casts Urine Mucus Urine Yeast (Budding) 08/20/23 08/20/23 08/20/23 01:43 01:55 02:05 WBC Hct MCV Neutrophils # Monocytes # PT INR ABG pH 7.11 L* ABG pCO2 94 H* ABG pO2 >400 H ABG HCO3 30 H ABG Total CO2 33 H ABG O2 Saturation 100.0 H Creatinine 0.57 L Glucose 212 H POC Glucose (mg/dL) Urine Protein 3+ H Urine Ketones 1+ H Urine Blood Small H Urine RBC 8 H Hyaline Casts 6 H Urine Mucus Rare H Urine Yeast (Budding) Rare H 08/20/23 08/20/23 05:37 06:10 WBC Hct MCV Neutrophils # Monocytes # PT INR ABG pH ABG pCO2 54 H ABG pO2 120 H ABG HCO3 31 H ABG Total CO2 32 H ABG O2 Saturation 98.0 H Creatinine Glucose POC Glucose (mg/dL) 141 H Urine Protein Urine Ketones Urine Blood Urine RBC Hyaline Casts Urine Mucus Urine Yeast (Budding) - Diagnostic Findings Chest x-ray: image reviewed Assessment and Plan Assessment: Acute hypoxemic and hypercapnic respiratory failure, requiring intubation to the mechanical ventilator. Postintubation chest x-ray shows cardiomegaly, pulmonary vascular congestion, and interstitial edema concerning for congestive heart failure. NT proBNP only 291. 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 Discontinued and is History of ischemic stroke several years back, the patient is functional according to the family Occlusion and stenosis of the carotid artery on the left Secondary polycythemia History of a flutter FARZANEH Chronic hypoxic respiratory failure Plan: Patient's medications, labs, chest x-ray were reviewed Advance ET tube 2 cm Continue on the mechanical ventilator with current settings, may wean FiO2 as tolerated Follow-up ABG shows a PaO2 of 120, pCO2 of 54, pH of 7.36. Patient continues on low-dose norepinephrine, which is currently infusing at 0. 04 mcg/kg/min. Echocardiogram is pending for the morning Antibiotics added with, which are essentially empiric Add combination of DuoNebs every 4, budesonide inhalation, formoterol inhalation, and IV Solu-Medrol I did speak to the patient's at length, she is considering taking a plane back to [place] once she find someone to watch her dog. Patient's prognosis is guarded. He will be monitored in the intensive care unit once bed available. I have personally seen and examined the patient, performed the documentation and the assessment and plan as written. Number of minutes spent on the visit:20
--- NOTE | 2023-08-20 08:29 | XR ---
EXAMINATION TYPE: XR chest 1V portable DATE OF EXAM: 08/20/2023 8:02 AM CLINICAL INDICATION:Male, 67 years old with history of pulmonary edema; COMPARISON: Chest radiographs from 08/20/2023 TECHNIQUE: XR chest 1V portable Frontal view of the chest. FINDINGS: Lungs/Pleura: There is no evidence of pleural effusion, focal consolidation, or pneumothorax. Pulmonary vascularity: Mild pulmonary vascular congestion. Heart/mediastinum: Cardiomediastinal silhouette is unremarkable. Musculoskeletal: No acute osseous pathology. Other findings: None Lines/Tubes: Endotracheal tube with distal tip 3.9cm above the theresa. Nasogastric tube with its distal tip and side-port projecting under the diaphragm. IMPRESSION: Support tubes in appropriate position. Mild pulmonary vasculature congestion..
[2023-08-20] MEDS ORDERED: AMIODARONE 200 MG TAB PO SCH (09:00)
[2023-08-20] MEDS: FORMOTEROL FUMARATE 20 MCG/2 ML NEBU INHALATION SCH (09:23)
[2023-08-20] MEDS: BUDESONIDE 1 MG/2 ML NEBU INHALATION SCH (09:24)
[2023-08-20] MEDS: IPRATROPIUM-ALBUTEROL 3 ML NEB INHALATION SCH (09:24)
[2023-08-20] MEDS: CHLORHEXIDINE GLUCONATE 15 ML CUP MUCOUS MEM SCH (09:38)
[2023-08-20] MEDS: HEPARIN SODIUM,PORCINE 5,000 UNIT/ML 1 ML VIAL SQ SCH (09:38)
[2023-08-20] MEDS: PANTOPRAZOLE 40 MG/10 ML VIAL IV SCH (09:38)
--- NOTE | 2023-08-20 10:22 | P.CNPUL ---
History of Present Illness Consult date: 08/20/23 Reason for consult: dyspnea History of present illness: This is a 67-year-old male patient with multiple medical problems including advanced COPD maintained on a combination of Dulera Spiriva on an outpatient basis in addition to obstructive sleep apnea was maintained on CPAP and O2 overnight. The patient is a chronic smoker. The patient was admitted to the intensive care unit because of acute hypercapnic respiratory failure. The patient came into the emergency department yesterday for shortness of breath. He was apparently loading and transporting some material and he became progressively more short of breath and altered and he became unresponsive. He was apparently supported with a [id number]. In the emergency department, t he patient had a systolic blood pressure above 200. He was unresponsive. He was also hypotensive. Systolic blood pressure was in the mid 70s. He was still oxygenating adequately. The patient was intubated and placed on mechanical ventilator. His initial blood gases showed a pH of 7.11 with a pCO2 of 94 and pO2 of more than 400. He was started on propofol and he was moved to the intensive care unit. The patient this morning remains sedated on propofol and is calm and comfortable. He is running on a propofol at 40 mcg/kg/min. IV fluids are running at normal saline at a rate of 100 cc an hour. He was given a total of 2 L in the emergency department. Subsequently, he was given a dose of Lasix 40 mg IV and is producing adequate amount of urine output. He is also on norepinephrine running at 0.04 mcg/kg/min. Most recent chest x-ray from this morning shows adequate positioning of the orotracheal tube. The patient has some mild pulm vascular congestion. No airspace disease or consolidation. No lung masses. No atelectasis or clear evidence of pneumonia. Subsequent blood gas from today shows a pH of 7.36 with a pCO2 of 54 and pO2 of 120. No significant orotracheal secretions. His renal function is stable with a creatinine of 0.8. Troponin initially was 0.01 and subsequent level was at 0.2 and the proBNP level was not elevated at 291. The viral panel including influ shirin, COVID-19 and RSV were all negative. He remains bronchospastic and wheezy and his peak airway pressure is around 37. He remains on a combination of bronchodilators and is currently on DuoNeb and IV Solu-Medrol. He was also started on empiric antibiotic coverage with IV Rocephin and Zithromax. His white cell count at 9.5 with a hemoglobin 14.1 and a platelet count of 156. Sodium is at 141, BUN is at 21 with a creatinine of 0.8 and the rest of the electrolytes are within normal limits. CAT scan of the brain has been done and it shows no acute intracranial process. There is some small vessel ischemic degenerative changes and evidence of cerebral atrophy. His EKG showing a normal sinus rhythm without any significant ST segment elevations. Going back to the history, the patient is a chronic smoker. Noted COPD and obstructive sleep apnea. He also has atrial flutter. He has had previous history of a CVA and the patient apparently has been functional post CVA. He has had a previous carotid artery dissection which led to today CVA. 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 No history of coronary artery disease. No history of any congestion heart failure. Family is at the bedside. Review of Systems ROS unobtainable: due to endotracheal tube Past Medical History Past Medical History: Atrial Fibrillation (Atrial fibrillation/flutter), Cancer (Plan discussed with the previous thymectomy followed by radiation therapy), COPD, CVA/TIA, Hyperlipidemia, Hypertension Additional Past Medical History / Comment(s): Verified with , Priscilla 08/20/2023 History of Any Multi-Drug Resistant Organisms: Unobtainable Past Surgical History: Unable to Obtain Past Psychological History: Unable to Obtain Smoking Status: Current some day smoker Past Alcohol Use History: Rare Past Drug Use History: None Reported Medications and Allergies Home Medications Medication Instructions Recorded Confirmed Type Amiodarone [Cordarone] 200 mg PO DAILY 08/20/23 08/20/23 History Cholecalciferol [Vitamin D3 (25 25 mcg PO DAILY 08/20/23 08/20/23 History Mcg = 1000 Iu)] Ezetimibe [Zetia] 10 mg PO DAILY 08/20/23 08/20/23 History Glucosamine/Chondr Escobedo A Sod [Osteo 1 tab PO DAILY 08/20/23 08/20/23 History Bi-Flex Caplet] Metoprolol Succinate (ER) [Toprol 100 mg PO DAILY 08/20/23 08/20/23 History Xl] Multivitamins, Thera [Multivitamin 1 tab PO DAILY 08/20/23 08/20/23 History (formulary)] Pravastatin Sodium [Pravachol] 40 mg PO HS 08/20/23 08/20/23 History Rivaroxaban [Xarelto] 20 mg PO DAILY 08/20/23 08/20/23 History Tiotropium 18 Mcg/Puff [Spiriva] 1 puff INHALATION RT-DAILY 08/20/23 08/20/23 History Zinc Gluconate [Zinc] 50 mg PO DAILY 08/20/23 08/20/23 History Allergies Allergy/AdvReac Type Severity Reaction Status Date / Time No Known Allergies Allergy Verified 08/20/23 08:48 Physical Exam Vitals: Vital Signs Temp Pulse Resp BP Pulse Ox FiO2 08/20/23 09:51 62 08/20/23 09:35 62 08/20/23 09:31 40 08/20/23 09:24 63 08/20/23 07:30 61 26 H 99 08/20/23 07:15 60 26 H 99 08/20/23 07:00 61 26 H 99 50 08/20/23 06:45 60 26 H 99 08/20/23 06:30 61 26 H 99 08/20/23 06:15 60 26 H 99 08/20/23 06:00 60 26 H 110/65 99 50 08/20/23 05:45 60 26 H 116/82 99 08/20/23 05:40 50 08/20/23 05:30 102/59 08/20/23 05:20 57 L 28 H 100/58 99 08/20/23 05:15 57 L 28 H 99/61 99 08/20/23 05:10 57 L 28 H 96/56 99 08/20/23 05:05 58 L 28 H 93/57 99 08/20/23 05:00 58 L 28 H 84/44 99 08/20/23 04:55 58 L 25 H 101/52 99 08/20/23 04:50 58 L 28 H 127/64 100 08/20/23 04:30 58 L 28 H 104/65 98 08/20/23 04:25 57 L 28 H 102/61 99 08/20/23 04:20 58 L 28 H 102/64 99 08/20/23 04:15 58 L 28 H 104/65 99 08/20/23 04:10 60 28 H 91/65 100 08/20/23 04:05 96.8 F L 60 28 H 91/65 100 08/20/23 04:00 61 28 H 79/51 98 08/20/23 03:50 97.0 F L 66 28 H 73/43 96 08/20/23 03:40 68 28 H 77/38 96 08/20/23 03:30 70 28 H 73/41 96 08/20/23 03:20 72 28 H 72/37 96 08/20/23 03:10 72 28 H 69/38 96 08/20/23 03:00 74 28 H 72/38 95 08/20/23 02:50 75 28 H 73/43 95 08/20/23 02:40 77 28 H 72/38 95 08/20/23 02:30 78 28 H 75/38 96 08/20/23 02:23 76 28 H 76/42 96 08/20/23 02:10 97.9 F 77 15 79/39 98 08/20/23 02:06 50 08/20/23 01:31 100 08/20/23 01:30 100 08/20/23 01:11 72 10 L 174/89 99 Intake and Output 08/19/23 08/20/23 08/20/23 22:59 06:59 14:59 Intake Total 552.835 100 Output Total 740 240 Balance -187.165 -140 Intake: IV 450 100 Azithromycin 500 mg In 250 Sodium Chloride 0.9% 250 ml @ 250 mls/hr IVPB DAILY@0700 [facility] Rx#: [id number] Sodium Chloride 0.9% 1, 200 100 000 ml @ 100 mls/hr IV . Q10H [facility] Rx#:[id number] Intake, IV Titration 102.835 Amount Norepinephrine 32 mg In 2.835 Sodium Chloride 0.9% 218 ml @ 0.03 MCG/KG/MIN 1.57 mls/hr IV .Q24H [facility] Rx#: [id number] propofoL 1,000 mg In 100.000 Empty Bag 1 bag @ 15 MCG/ KG/MIN 10.051 mls/hr IV . Q9H57M [facility] Rx#:[id number] Output: Urine 740 240 Other: Weight 111.674 kg ABP, PAP, CO, CI - Last 8 Hours Arterial Blood Pressure 120/63 Arterial Blood Pressure 118/61 Arterial Blood Pressure 113/60 Arterial Blood Pressure 115/59 Arterial Blood Pressure 106/53 GENERAL EXAM: 67-year-old white male, unresponsive, sedated, and synchronous with mechanical ventilator. Orogastric and orotracheal tube are both in place. HEAD: Normocephalic and atraumatic EYES: Normal reaction of pupils, equal size. NOSE: Clear with pink turbinates. THROAT: No erythema or exudates. NECK: No masses, no JVD. CHEST: No chest wall deformity. LUNGS: Equal air entry with diffuse crackles and rhonchi. Intubated to the mechanical ventilator the patient apparently had some flat secretions for the intubation and currently no active respiratory issues noted. CVS: S1 and S2 normal with no audible murmur, regular rhythm. No extra heart sounds ABDOMEN: No hepatosplenomegaly, active bowel sounds, no guarding or rigidity. SPINE: No scoliosis or deformity SKIN: No rashes CENTRAL NERVOUS SYSTEM: No focal deficits, tone is normal in all 4 extremities. EXTREMITIES: There is no peripheral edema, clubbing, or cyanosis. Peripheral pulses are intact. Results - Laboratory Findings CBC and BMP: 08/20/23 06:30 08/20/23 06:30 ABG ABG pH 7.36 (7.35-7.45) 08/20/23 06:10 ABG pCO2 54 mmHg (35-45) H 08/20/23 06:10 ABG pO2 120 mmHg (83-108) H 08/20/23 06:10 ABG O2 Saturation 98.0 % (94-97) H 08/20/23 06:10 PT/INR, D-dimer PT 13.0 sec (10.0-12.5) H 08/20/23 01:43 INR 1.2 (<1.2) H 08/20/23 01:43 D-Dimer 0.41 mg/L FEU (<0.60) 08/20/23 01:43 Abnormal lab findings: Abnormal Labs 08/20/23 08/20/23 08/20/23 01:11 01:43 01:43 WBC 14.4 H Hct 53.2 H MCV 102.0 H Neutrophils # 9.8 H Lymphocytes # Monocytes # 1.6 H PT 13.0 H INR 1.2 H ABG pH ABG pCO2 ABG pO2 ABG HCO3 ABG Total CO2 ABG O2 Saturation BUN Creatinine Glucose POC Glucose (mg/dL) 183 H Troponin I Urine Protein Urine Ketones Urine Blood Urine RBC Hyaline Casts Urine Mucus Urine Yeast (Budding) 08/20/23 08/20/23 08/20/23 01:43 01:55 02:05 WBC Hct MCV Neutrophils # Lymphocytes # Monocytes # PT INR ABG pH 7.11 L* ABG pCO2 94 H* ABG pO2 >400 H ABG HCO3 30 H ABG Total CO2 33 H ABG O2 Saturation 100.0 H BUN Creatinine 0.57 L Glucose 212 H POC Glucose (mg/dL) Troponin I Urine Protein 3+ H Urine Ketones 1+ H Urine Blood Small H Urine RBC 8 H Hyaline Casts 6 H Urine Mucus Rare H Urine Yeast (Budding) Rare H 08/20/23 08/20/23 08/20/23 05:20 05:37 06:10 WBC Hct MCV Neutrophils # Lymphocytes # Monocytes # PT INR ABG pH ABG pCO2 54 H ABG pO2 120 H ABG HCO3 31 H ABG Total CO2 32 H ABG O2 Saturation 98.0 H BUN Creatinine Glucose POC Glucose (mg/dL) 141 H Troponin I 0.238 H* Urine Protein Urine Ketones Urine Blood Urine RBC Hyaline Casts Urine Mucus Urine Yeast (Budding) 08/20/23 08/20/23 06:30 06:30 WBC Hct MCV Neutrophils # 8.3 H Lymphocytes # 0.5 L Monocytes # PT INR ABG pH ABG pCO2 ABG pO2 ABG HCO3 ABG Total CO2 ABG O2 Saturation BUN 21 H Creatinine Glucose 188 H POC Glucose (mg/dL) Troponin I Urine Protein Urine Ketones Urine Blood Urine RBC Hyaline Casts Urine Mucus Urine Yeast (Budding) - Diagnostic Findings Chest x-ray: image reviewed Assessment and Plan Assessment: Acute hypoxemic and hypercapnic respiratory failure, typical of an acute COPD exacerbation and there may be a component of increased pulm vascular congestion as the patient has increased pulmonary vascular markings on his chest x-ray. Pulmonary embolism is felt to be less likely. The patient has been already maintained on anticoagulation for history of A-fib/flutter. The viral panel has been negative. proBNP level is nonelevated. Postintubation blood gas shows improvement in oxygenation and acid-base status. The patient remains bronchospastic and wheezy with elevated airway pressures. Advanced COPD and the patient has been maintained on a combination of Dulera and Spiriva on an outpatient basis and uses albuterol as needed. He is a chronic smoker. Hypotension, given 2 L of normal saline bolus and started on low-dose norepinephrine, currently the patient is on low-dose norepinephrine. Hypertension is still under investigation. Will need a baseline echocardiogram. Mild troponin leak, likely related to a type II myocardial ischemia. No evidence of any acute ischemic changes on the EKG. Cardiac rhythm is sinus. Altered mentation probably just to follow closely. CAT scan of the brain showed no acute abnormalities. Obstructive sleep apnea, with home CPAP device Chronic ongoing tobacco dependence History of hypertension History of paroxysmal atrial fibrillation/flutter, anticoagulated on Xarelto in addition to metoprolol 100 mg p.o. twice a day History of previous carotid artery dissection and CVA Recent history of thymectomy for thymus cancer followed by radiation therapy. History of ischemic stroke several years back, the patient is functional according to the family Occlusion and stenosis of the carotid artery on the left Secondary polycythemia, history of Plan: Continue ventilator support and drop the FiO2 down to 40%. Change IV fluids to 40 cc an hour normal saline Wean off pressors and discontinue to maintain mean arterial pressure above 60 Obtain echocardiogram CTA of the chest Obtain sputum and Gram stain and culture Obtain blood culture Check procalcitonin level Antibiotics added with, which are essentially empiric and the patient is currently on a combination of Rocephin and Zithromax Add combination of DuoNebs every 4 hours, budesonide inhalation, formoterol inhalation, and IV Solu-Medrol I did speak to the patient's 3 of the sons at the bedside. The brother is also a physician will be arriving to the hospital for more discussions Will update his surgical history Condition is critical and will continue to follow make further recommendations based on his progress. Time with Patient: Greater than 30
--- NOTE | 2023-08-20 10:57 | P.PN ---
Subjective Progress Note Date: 08/20/23 Patient is a 67-year-old male with A fib Anticoagulated with Xarelto, COPD, HLD, and HTN who was brought to the ER via EMS after having activated for shortness of breath. By the time he arrived to the ER he was unresponsive and unable to provide any meaningful history. The patient was subsequently intubated. During that time he was noted to be hypertensive with a blood pressure greater than 200 during transport to the ER, and on arrival his blood pressure was 174/89. Evaluation in the ER included CBC, coags, D-dimer, and CMP which were remarkable for white blood cell count of 14.4, INR 1.2. ABG was remarkable for CO2 of 94 and pH of 7.11. Urinalysis was unremarkable. Influenza A/B/COVID-19/RSV was negative. Head CT was performed in the ER but read was unavailable at time of admission. Chest x-ray demonstrated diffuse interstitial infiltrate with small bilateral pleural effusions. He was admitted to the ICU for further monitoring. Was felt that he likely had flash pulmonary edema due to malignant hypertension. However he became hypotensive during the intubation process with a blood pressure down to 72/38.Head CT came back with no acute intracranial abnormality. He had an arterial line placed. He was seen by critical care. He was started on antibiotics with rocephin and zithromax. Per family he had been having SOB for 2 week with possible viral illness, he has had sinus infection recently which was treated with augmentin. Patient seen and examined at bedside with family present. Patient is intubated and sedated. Acute overnight events as listed above. Vital signs reviewed General: Nontoxic, no distress, appears at stated age Cardiovascular: S1S2 reg, no murmur Lungs: Course bs bilateral, no rhonchi, no rales, no accessory muscle use, on vent Abdominal: Soft, nontender to palpation, no guarding Ext: No gross muscle atrophy, no edema b/l lower extremities, no contractures Neuro: sedated on vent Psych: sedated on vent Assessment/Plan: Acute encephalopthy Acute Hypercapnic Respiratory failure Acute respiratory acidosis Acute exacerbation of Severe COPD - Case discussed with Dr. Patricia. - Duoneb QID, Budesonide 1 mg inh BID, Formoterol 20 mcg INH BID - solumedrol 60 mg IVP q 6 hrs - follow BS while on steroids - Zithromax 500 mg IVPD D # 1/3 - Rocephin 2 gm IVPB daily D# 1 - CTA chest Possible flash pulm edema vs CHF HTN urgency on arrival and now hypotensive A fib anticoagulated with xarelto Elevated troponin, suspect due to hypertension and distress - now requiring norepi and this is being weaned - check echo and follow BP - s/p Lasix 40 mg IVP in the ED - lasix echo reviewed from family with EF 55% and no pulm HTN - Xarelto - Amio 200 mg daily - metoprlol on hold due to low BP - Pravacol 40 mg at night. -Repeat troponin at 1130. - Await cardio recs Leukocytosis, reactive and resolved Hx of thymic cancer in remission Imaging: See HPI Data Review: Reviewed from today include CBC and basic metabolic profile which are essentially unremarkable other than on glucose of 188. Troponin mildly elevated at 0.238. This is an update note from my partners H and P this morning, no billing is associated with this note. DVT prophylaxis: Xarelto Anticipated discharge date: Pending Clinical Course Anticipated discharge place:Pending Clinical Course This dictation was prepared using [employer] voice recognition software. Though every attempt is made to correct errors during dictation some may still exist. Objective - Vital Signs Vital signs: Vital Signs Temp 96.8 F L 08/20/23 04:05 Pulse 61 08/20/23 07:30 Resp 26 H 08/20/23 07:30 BP 110/65 08/20/23 06:00 Pulse Ox 99 08/20/23 07:30 FiO2 50 08/20/23 07:00 Intake & Output 08/19/23 08/20/23 08/20/23 18:59 06:59 18:59 Intake Total 537.093 Output Total 740 Balance -202.907 Weight 111.674 kg Intake: IV 450 Azithromycin 500 mg In 250 Sodium Chloride 0.9% 250 ml @ 250 mls/hr IVPB DAILY@0700 [facility] Rx#: [id number] Sodium Chloride 0.9% 1, 200 000 ml @ 100 mls/hr IV . Q10H [facility] Rx#:[id number] Intake, IV Titration 87.093 Amount Norepinephrine 32 mg In 2.835 Sodium Chloride 0.9% 218 ml @ 0.03 MCG/KG/MIN 1.57 mls/hr IV .Q24H [facility] Rx#: [id number] propofoL 1,000 mg In 84.258 Empty Bag 1 bag @ 15 MCG/ KG/MIN 10.051 mls/hr IV . Q9H57M [facility] Rx#:[id number] Output: Urine 740 ABP, PAP, CO, CI - Last Documented Arterial Blood Pressure 120/63 - Labs CBC & Chem 7: 08/20/23 06:30 08/20/23 06:30 Labs: Abnormal Lab Results - Last 24 Hours (Table) 08/20/23 08/20/23 08/20/23 Range/Units 01:11 01:43 01:43 WBC 14.4 H (3.8-10.6) k/uL Hct 53.2 H (39.0-53.0) % MCV 102.0 H (80.0-100.0) fL Neutrophils # 9.8 H (1.3-7.7) k/uL Lymphocytes # (1.0-4.8) k/uL Monocytes # 1.6 H (0-1.0) k/uL PT 13.0 H (10.0-12.5) sec INR 1.2 H (<1.2) ABG pH (7.35-7.45) ABG pCO2 (35-45) mmHg ABG pO2 (83-108) mmHg ABG HCO3 (21-25) mmol/L ABG Total CO2 (19-24) mmol/L ABG O2 Saturation (94-97) % BUN (9-20) mg/dL Creatinine (0.66-1.25) mg/dL Glucose (74-99) mg/dL POC Glucose (mg/dL) 183 H (70-110) mg/dL Urine Protein (Negative) Urine Ketones (Negative) Urine Blood (Negative) Urine RBC (0-5) /hpf Hyaline Casts (0-2) /lpf Urine Mucus (None) /hpf Urine Yeast (Budding) (None) /hpf 08/20/23 08/20/23 08/20/23 Range/Units 01:43 01:55 02:05 WBC (3.8-10.6) k/uL Hct (39.0-53.0) % MCV (80.0-100.0) fL Neutrophils # (1.3-7.7) k/uL Lymphocytes # (1.0-4.8) k/uL Monocytes # (0-1.0) k/uL PT (10.0-12.5) sec INR (<1.2) ABG pH 7.11 L* (7.35-7.45) ABG pCO2 94 H* (35-45) mmHg ABG pO2 >400 H (83-108) mmHg ABG HCO3 30 H (21-25) mmol/L ABG Total CO2 33 H (19-24) mmol/L ABG O2 Saturation 100.0 H (94-97) % BUN (9-20) mg/dL Creatinine 0.57 L (0.66-1.25) mg/dL Glucose 212 H (74-99) mg/dL POC Glucose (mg/dL) (70-110) mg/dL Urine Protein 3+ H (Negative) Urine Ketones 1+ H (Negative) Urine Blood Small H (Negative) Urine RBC 8 H (0-5) /hpf Hyaline Casts 6 H (0-2) /lpf Urine Mucus Rare H (None) /hpf Urine Yeast (Budding) Rare H (None) /hpf 08/20/23 08/20/23 08/20/23 Range/Units 05:37 06:10 06:30 WBC (3.8-10.6) k/uL Hct (39.0-53.0) % MCV (80.0-100.0) fL Neutrophils # 8.3 H (1.3-7.7) k/uL Lymphocytes # 0.5 L (1.0-4.8) k/uL Monocytes # (0-1.0) k/uL PT (10.0-12.5) sec INR (<1.2) ABG pH (7.35-7.45) ABG pCO2 54 H (35-45) mmHg ABG pO2 120 H (83-108) mmHg ABG HCO3 31 H (21-25) mmol/L ABG Total CO2 32 H (19-24) mmol/L ABG O2 Saturation 98.0 H (94-97) % BUN (9-20) mg/dL Creatinine (0.66-1.25) mg/dL Glucose (74-99) mg/dL POC Glucose (mg/dL) 141 H (70-110) mg/dL Urine Protein (Negative) Urine Ketones (Negative) Urine Blood (Negative) Urine RBC (0-5) /hpf Hyaline Casts (0-2) /lpf Urine Mucus (None) /hpf Urine Yeast (Budding) (None) /hpf 08/20/23 Range/Units 06:30 WBC (3.8-10.6) k/uL Hct (39.0-53.0) % MCV (80.0-100.0) fL Neutrophils # (1.3-7.7) k/uL Lymphocytes # (1.0-4.8) k/uL Monocytes # (0-1.0) k/uL PT (10.0-12.5) sec INR (<1.2) ABG pH (7.35-7.45) ABG pCO2 (35-45) mmHg ABG pO2 (83-108) mmHg ABG HCO3 (21-25) mmol/L ABG Total CO2 (19-24) mmol/L ABG O2 Saturation (94-97) % BUN 21 H (9-20) mg/dL Creatinine (0.66-1.25) mg/dL Glucose 188 H (74-99) mg/dL POC Glucose (mg/dL) (70-110) mg/dL Urine Protein (Negative) Urine Ketones (Negative) Urine Blood (Negative) Urine RBC (0-5) /hpf Hyaline Casts (0-2) /lpf Urine Mucus (None) /hpf Urine Yeast (Budding) (None) /hpf
[2023-08-20] MEDS: AMIODARONE 200 MG TAB PO SCH (11:00)
[2023-08-20 11:31] LABS: Glucose,Whole Blood 169 mg/dL (70-110)
--- NOTE | 2023-08-20 13:20 | CT ---
EXAMINATION TYPE: CT angio chest CT DLP: 630.9 mGycm, Automated exposure control for dose reduction was used. DATE OF EXAM: 08/20/2023 10:35 AM COMPARISON: Portable chest 08/22/2023 .. CLINICAL INDICATION:Male, 67 years old with history of respiratory failure; respiratory failure TECHNIQUE/CONTRAST: CTA scan of the thorax is performed with IV Contrast, patient injected with 100 mL of Isovue 370, MIP images are created and reviewed these are created on a separate workstation.. FINDINGS: ET tube and NG tube appear in satisfactory position. Pulmonary Artery: There is no evidence for a filling defect within the pulmonary vasculature to sugge st acute pulmonary embolism. Suboptimal opacification of the pulmonary artery for adequate evaluatio n. The pulmonary artery is of normal size. Lungs/Pleura: Dependent airspace disease in the right lower lobe, moderate volume and small right p leural effusion Airway: Large airways are patent. Heart: Heart is within normal limits for size. Vasculature: No evidence of aortic aneurysm. Mediastinum: No gross evidence of adenopathy. Musculoskeletal: No acute osseous abnormalities Soft Tissues: Unremarkable. Lower neck: No significant findings. Upper Abdomen: No significant findings. IMPRESSION: 1. No evidence of pulmonary embolism. 2. Dependent airspace disease right lower lobe with trace to small right pleural effusion.
--- NOTE | 2023-08-20 13:54 | P.CRDCN ---
History of Present Illness History of present illness: HISTORY OF PRESENTING ILLNESS Pleasant 67-year-old male with history of hypertension, hyperlipidemia, paroxysmal atrial fibrillation, CVA with prior dissection, advanced COPD who presents secondary to increasing shortness breath since Saturday. Patient currently unresponsive on ventilator and history is supplied by chart and sons at bedside. Patient does have chronic shortness breath however had been having increasing shortness breath since Saturday and PCP had discussed increasing his i nhalers. The patient apparently had an episode where he had increasing shortness breath and then unresponsive. In emergency department initially was noted to be hypertensive with systolics 170s however after stabilizing patient, he became hypotensive requiring norepinephrine. ABG noted to have hypercapnic respiratory failure with pCO2 94. Currently he remains in normal sinus rhythm. Per family he has not follow with a therapeutic program worker. He has been tolerating anticoagulation. He did have a chest CTA performed which showed no PE and lower lobe lobe airspace disease. Troponin 0.012, 0.23, 0.19. ProBNP 291. REVIEW OF SYSTEMS At the time of my exam: Unable to obtain secondary to intubation PHYSICAL EXAMINATION Vital signs reviewed. CONSTITUTIONAL: No apparent distress, obese, non responsive on vent. HEENT: Head is normocephalic. Pupils are equal, round. Sclerae anicteric. Mucous membranes of the mouth are moist. No JVD. No carotid bruit. CHEST EXAMINATION: Lungs are clear to auscultation. No chest wall tenderness is noted on palpation or with deep breathing. HEART EXAMINATION: Regular rate and rhythm. S1, S2 heard. No murmurs, gallops or rub. ABDOMEN: Soft, nontender. Positive bowel sounds. EXTREMITIES: 2+ peripheral pulses, no lower extremity edema and no calf tenderness. NEUROLOGIC EXAMINATION: Patient is non responsive on vent. ASSESSMENT 1. Acute on chronic respiratory failure likely related to pulmonary source, COPD 2. Non-STEMI, appears type II mechanism related to respiratory failure 3. Altered mental status 4. History of paroxysmal atrial fibrillation, currently sinus rhythm on anticoagulation 5. History of stroke with prior dissection 6. Carotid artery disease 7. Hypotension may be related to sepsis versus other 8. Obesity PLAN Patient with mildly elevated troponins likely type II mechanism from his respiratory failure. Check 2-D echo to [place] left ventricular function. Presentation does not appear consistent with heart failure with relatively normal proBNP. Continue with current supportive care. Further recommendations to follow. Past Medical History Past Medical History: Atrial Fibrillation (Atrial fibrillation/flutter), Cancer (Plan discussed with the previous thymectomy followed by radiation therapy), COPD, CVA/TIA, Hyperlipidemia, Hypertension Additional Past Medical History / Comment(s): Verified with , Priscilla 08/20/2023 History of Any Multi-Drug Resistant Organisms: Unobtainable Past Surgical History: Unable to Obtain Past Psychological History: Unable to Obtain Smoking Status: Current some day smoker Past Alcohol Use History: Rare Past Drug Use History: None Reported Medications and Allergies Home Medications Medication Instructions Recorded Confirmed Type Amiodarone [Cordarone] 200 mg PO DAILY 08/20/23 08/20/23 History Cholecalciferol [Vitamin D3 (25 25 mcg PO DAILY 08/20/23 08/20/23 History Mcg = 1000 Iu)] Ezetimibe [Zetia] 10 mg PO DAILY 08/20/23 08/20/23 History Glucosamine/Chondr Escobedo A Sod [Osteo 1 tab PO DAILY 08/20/23 08/20/23 History Bi-Flex Caplet] Metoprolol Succinate (ER) [Toprol 100 mg PO DAILY 08/20/23 08/20/23 History Xl] Multivitamins, Thera [Multivitamin 1 tab PO DAILY 08/20/23 08/20/23 History (formulary)] Pravastatin Sodium [Pravachol] 40 mg PO HS 08/20/23 08/20/23 History Rivaroxaban [Xarelto] 20 mg PO DAILY 08/20/23 08/20/23 History Tiotropium 18 Mcg/Puff [Spiriva] 1 puff INHALATION RT-DAILY 08/20/23 08/20/23 History Zinc Gluconate [Zinc] 50 mg PO DAILY 08/20/23 08/20/23 History Allergies Allergy/AdvReac Type Severity Reaction Status Date / Time No Known Allergies Allergy Verified 08/20/23 08:48 Physical Exam Vitals: Vital Signs Temp Pulse Resp BP Pulse Ox FiO2 08/20/23 12:22 64 08/20/23 12:15 61 28 H 96 08/20/23 12:08 40 08/20/23 12:07 60 08/20/23 12:00 97.9 F 61 28 H 95 40 08/20/23 11:45 59 L 28 H 95 08/20/23 11:30 62 28 H 101/57 96 08/20/23 11:15 64 28 H 96 08/20/23 11:00 63 28 H 97 08/20/23 10:45 63 28 H 99 08/20/23 10:00 67 28 H 96 08/20/23 09:51 62 08/20/23 09:45 66 28 H 97 08/20/23 09:35 62 08/20/23 09:31 40 08/20/23 09:30 62 28 H 97 08/20/23 09:24 63 08/20/23 09:15 62 28 H 97 08/20/23 09:00 62 28 H 97 08/20/23 08:45 62 28 H 97 08/20/23 08:30 62 28 H 97 08/20/23 08:15 61 28 H 99 40 08/20/23 08:00 98.2 F 61 28 H 98 40 08/20/23 07:45 60 28 H 99 08/20/23 07:30 61 26 H 99 08/20/23 07:15 60 26 H 99 08/20/23 07:00 61 26 H 99 50 08/20/23 06:45 60 26 H 99 08/20/23 06:30 61 26 H 99 08/20/23 06:15 60 26 H 99 08/20/23 06:00 60 26 H 110/65 99 50 08/20/23 05:45 60 26 H 116/82 99 08/20/23 05:40 50 08/20/23 05:30 102/59 08/20/23 05:20 57 L 28 H 100/58 99 08/20/23 05:15 57 L 28 H 99/61 99 08/20/23 05:10 57 L 28 H 96/56 99 08/20/23 05:05 58 L 28 H 93/57 99 08/20/23 05:00 58 L 28 H 84/44 99 08/20/23 04:55 58 L 25 H 101/52 99 08/20/23 04:50 58 L 28 H 127/64 100 08/20/23 04:30 58 L 28 H 104/65 98 08/20/23 04:25 57 L 28 H 102/61 99 08/20/23 04:20 58 L 28 H 102/64 99 08/20/23 04:15 58 L 28 H 104/65 99 08/20/23 04:10 60 28 H 91/65 100 08/20/23 04:05 96.8 F L 60 28 H 91/65 100 08/20/23 04:00 61 28 H 79/51 98 08/20/23 03:50 97.0 F L 66 28 H 73/43 96 08/20/23 03:40 68 28 H 77/38 96 08/20/23 03:30 70 28 H 73/41 96 08/20/23 03:20 72 28 H 72/37 96 08/20/23 03:10 72 28 H 69/38 96 08/20/23 03:00 74 28 H 72/38 95 08/20/23 02:50 75 28 H 73/43 95 08/20/23 02:40 77 28 H 72/38 95 08/20/23 02:30 78 28 H 75/38 96 08/20/23 02:23 76 28 H 76/42 96 08/20/23 02:10 97.9 F 77 15 79/39 98 08/20/23 02:06 50 08/20/23 01:31 100 08/20/23 01:30 100 08/20/23 01:11 72 10 L 174/89 99 Intake and Output 08/19/23 08/20/23 08/20/23 22:59 06:59 14:59 Intake Total 552.835 220 Output Total 740 630 Balance -187.165 -410 Intake: IV 450 220 Azithromycin 500 mg In 250 Sodium Chloride 0.9% 250 ml @ 250 mls/hr IVPB DAILY@0700 [facility] Rx#: [id number] Sodium Chloride 0.9% 1, 200 220 000 ml @ 40 mls/hr IV . Q24H [facility] Rx#:[id number] Intake, IV Titration 102.835 Amount Norepinephrine 32 mg In 2.835 Sodium Chloride 0.9% 218 ml @ 0.03 MCG/KG/MIN 1.57 mls/hr IV .Q24H [facility] Rx#: [id number] propofoL 1,000 mg In 100.000 Empty Bag 1 bag @ 15 MCG/ KG/MIN 10.051 mls/hr IV . Q9H57M [facility] Rx#:[id number] Output: Urine 740 630 Other: Voiding Method Indwelling Catheter Weight 111.674 kg 111.674 kg ABP, PAP, CO, CI - Last 8 Hours Arterial Blood Pressure 109/49 Arterial Blood Pressure 97/42 Arterial Blood Pressure 116/51 Arterial Blood Pressure 97/44 Arterial Blood Pressure 102/49 Arterial Blood Pressure 119/57 Arterial Blood Pressure 127/60 Arterial Blood Pressure 100/45 Arterial Blood Pressure 111/49 Arterial Blood Pressure 123/58 Arterial Blood Pressure 121/56 Arterial Blood Pressure 120/57 Arterial Blood Pressure 119/55 Arterial Blood Pressure 116/56 Arterial Blood Pressure 121/57 Arterial Blood Pressure 120/58 Arterial Blood Pressure 127/64 Arterial Blood Pressure 120/63 Arterial Blood Pressure 118/61 Arterial Blood Pressure 113/60 Arterial Blood Pressure 115/59 Arterial Blood Pressure 106/53 Results 08/20/23 06:30 08/20/23 06:30 Cardiac Enzymes 08/20/23 08/20/23 08/20/23 Range/Units 01:43 01:43 05:20 AST 28 (17-59) U/L Troponin I <0.012 0.238 H* (0.000-0.034) ng/mL 08/20/23 Range/Units 11:24 AST (17-59) U/L Troponin I 0.191 H* (0.000-0.034) ng/mL Coagulation 08/20/23 Range/Units 01:43 PT 13.0 H (10.0-12.5) sec APTT 24.6 (22.0-30.0) sec CBC 08/20/23 08/20/23 Range/Units 01:43 06:30 WBC 14.4 H 9.5 (3.8-10.6) k/uL RBC 5.22 4.48 (4.30-5.90) m/uL Hgb 16.6 14.1 (13.0-17.5) gm/dL Hct 53.2 H 44.3 (39.0-53.0) % Plt Count 177 156 (150-450) k/uL Comprehensive Metabolic Panel 08/20/23 08/20/23 Range/Units 01:43 06:30 Sodium 142 141 (137-145) mmol/L Potassium 4.8 4.2 (3.5-5.1) mmol/L Chloride 105 106 (98-107) mmol/L Carbon Dioxide 30 28 (22-30) mmol/L BUN 19 21 H (9-20) mg/dL Creatinine 0.57 L 0.80 (0.66-1.25) mg/dL Glucose 212 H 188 H (74-99) mg/dL Calcium 9.9 9.1 (8.4-10.2) mg/dL AST 28 (17-59) U/L ALT 20 (4-49) U/L Alkaline Phosphatase 121 (38-126) U/L Total Protein 7.7 (6.3-8.2) g/dL Albumin 4.5 (3.5-5.0) g/dL Current Medications Generic Name Dose Route Start Last Admin Trade Name Freq PRN Reason Stop Dose Admin Acetaminophen 650 mg 08/20/23 04:50 Acetaminophen Suppository 650 Mg Supp RECTAL Q4HR PRN Fever And/ Or Mild Pain Albuterol/Ipratropium 3 ml 08/20/23 08:00 08/20/23 12:06 Ipratropium-Albuterol 3 Ml Neb INHALATION 3 ml RT-Q4H FREDY Administration Amiodarone HCl 200 mg 08/20/23 09:00 08/20/23 11:00 Amiodarone 200 Mg Tab PO 200 mg DAILY FREDY Administration Budesonide 1 mg 08/20/23 08:00 08/20/23 09:24 Budesonide 1 Mg/2 Ml Nebu INHALATION 1 mg RT-BID FREDY Administration Chlorhexidine Gluconate 15 ml 08/20/23 09:00 08/20/23 09:38 Chlorhexidine Gluconate 15 Ml Cup MUCOUS MEM 15 ml BID FREDY Administration Dextrose/Water 25 ml 08/20/23 05:53 Dextrose 50% Syringe 50 Ml IVP PER PROTOCOL PRN Hypoglycemia Protocol Dextrose/Water 50 ml 08/20/23 05:53 Dextrose 50% Syringe 50 Ml IVP PER PROTOCOL PRN Hypoglycemia Protocol Formoterol Fumarate 20 mcg 08/20/23 08:00 08/20/23 09:23 Formoterol Fumarate 20 Mcg/2 Ml Nebu INHALATION 20 mcg RT-BID FREDY Administration Propofol 1,000 mg/ IV Solution 100 mls @ 10.051 mls/hr 08/20/23 01:30 08/20/23 12:10 IV 40 mcg/kg/min .Q9H57M FR[facility]Y 26.802 mls/hr Administration Protocol 15 MCG/KG/MIN Norepinephrine Bitartrate 32 250 mls @ 1.57 mls/hr 08/20/23 03:09 08/20/23 04:44 mg/ Sodium Chloride IV 08/21/23 03:08 0.04 mcg/kg/min .Q24H [facility] 2.094 mls/hr Titration Protocol 0.03 MCG/KG/MIN Sodium Chloride 1,000 mls @ 40 mls/hr 08/20/23 05:00 08/20/23 05:19 Saline 0.9% IV 100 mls/hr .Q24H [facility] Administration Azithromycin 500 mg/ Sodium 250 mls @ 250 mls/hr 08/20/23 07:00 08/20/23 06:30 Chloride IVPB 08/22/23 07:59 250 mls/hr DAILY@0700 [facility] Administration Protocol Ceftriaxone Sodium 2 gm/ 50 mls @ 100 mls/hr 08/21/23 02:00 Sodium Chloride IVPB Q24H [facility] Protocol Insulin Aspart 0 unit 08/20/23 06:00 08/20/23 11:43 Insulin Aspart (Novolog) 100 Unit/Ml Vial SQ 3 unit Q6HR [facility] Administration Protocol Methylprednisolone Sodium Succinate 60 mg 08/20/23 06:00 08/20/23 11:06 Methylprednisolone Sod Succi 125 Mg/2 Ml Vial IV 60 mg Q6HR [facility] Administration Morphine Sulfate 4 mg 08/20/23 04:50 Morphine Sulfate 4 Mg/Ml Syringe IV Q3HR PRN Severe Pain (Scale 7 to 10) Multi-Ingred Cream/Lotion/Oil/Oint 1 applic 08/20/23 04:50 Artificial Tears Ointment 3.5 Gm Tube BOTH EYES Q4HR PRN Dry Eye(s) Naloxone HCl 0.2 mg 08/20/23 04:50 Naloxone 0.4 Mg/Ml 1 Ml Vial IV Q2M PRN Opioid Reversal Pantoprazole Sodium 40 mg 08/20/23 09:00 08/20/23 09:38 Pantoprazole 40 Mg/10 Ml Vial IV 40 mg DAILY [facility] Administration Pravastatin Sodium 40 mg 08/20/23 21:00 Pravastatin Sodium 40 Mg Tab PO HS [facility] Rivaroxaban 20 mg 08/20/23 17:30 Rivaroxaban 20 Mg Tab PO W/SUPPER [facility] Protocol Intake and Output 08/19/23 08/20/23 08/20/23 22:59 06:59 14:59 Intake Total 552.835 220 Output Total 740 630 Balance -187.165 -410 Intake: IV 450 220 Azithromycin 500 mg In 250 Sodium Chloride 0.9% 250 ml @ 250 mls/hr IVPB DAILY@0700 [facility] Rx#: [id number] Sodium Chloride 0.9% 1, 200 220 000 ml @ 40 mls/hr IV . Q24H [facility] Rx#:[id number] Intake, IV Titration 102.835 Amount Norepinephrine 32 mg In 2.835 Sodium Chloride 0.9% 218 ml @ 0.03 MCG/KG/MIN 1.57 mls/hr IV .Q24H [facility] Rx#: [id number] propofoL 1,000 mg In 100.000 Empty Bag 1 bag @ 15 MCG/ KG/MIN 10.051 mls/hr IV . Q9H57M [facility] Rx#:[id number] Output: Urine 740 630 Other: Voiding Method Indwelling Catheter Weight 111.674 kg 111.674 kg Patient Weight 08/21/23 06:59 Weight 111.674 kg 08/20/23 06:30 08/20/23 06:30
[2023-08-20] MEDS: RIVAROXABAN 20 MG TAB PO SCH (16:59)
[2023-08-20 17:32] LABS: Glucose,Whole Blood 174 mg/dL (70-110)
--- NOTE | 2023-08-20 17:48 | CA ---
Transthoracic Echo Report Name: Darius Rizzo Age: 67 Gender: M : 1955 Exam Date: 08/20/2023 15:33 Exam Location: [place] [facility] Ht (in): 71 Wt (lb): 246 Ordering Physician: Julio Cesar Quispe MD Attending/Referring Phys: Patron Attendant Savanah Guevara RDCS Procedure CPT: Indications: Assess cardiac function/CHF Cardiac Hx: Technical Quality: Very technically difficult study Contrast 1: Definity Total Dose (mL): 2 Contrast 2: Total Dose (mL): MEASUREMENTS (Male / Female) Normal Values 2D ECHO LV Diastolic Diameter PLAX 4.8 cm 4.2 - 5.9 / 3.9 - 5.3 cm LV Systolic Diameter PLAX 3.2 cm IVS Diastolic Thickness 1.4 cm 0.6 - 1.0 / 0.6 - 0.9 cm LVPW Diastolic Thickness 1.5 cm 0.6 - 1.0 / 0.6 - 0.9 cm LV Relative Wall Thickness 0.6 FINDINGS Left Ventricle Mildly increased left ventricular wall thickness. No obvious regional wall motion abnormalities. Left ventricular ejection fraction is estimated at 55 %. Right Ventricle Right ventricle not well visualized. Right Atrium Right atrium not well visualized. Left Atrium Left atrium not well visualized. Mitral Valve Mitral valve not well visualized. No mitral regurgitation. Aortic Valve Aortic valve not well visualized. Tricuspid Valve Tricuspid valve not well visualized. Pulmonic Valve Pulmonic valve not well visualized. Pericardium No pericardial effusion. Aorta Aortic root and proximal ascending aorta not well visualized. CONCLUSIONS Very technically difficult study. Limited views Overall normal LV size and systolic function. LVEF 55-60% No obvious regional wall motion abnormality Valve function was not assessed RV not well visualized No pericardial effusion. Previewed by: Dr Dakotah Umanzor (Electronically Signed) Final Date: 20 August 2023 17:47
[2023-08-20] MEDS: PRAVASTATIN SODIUM 40 MG TAB PO SCH (20:58)
[2023-08-20 23:56] LABS: Glucose,Whole Blood 169 mg/dL (70-110)
[2023-08-21] MEDS: NOREPINEPHRINE 32 MG in SODIUM CHLORIDE 0.9% 218 ML IV SCH (03:45)
[2023-08-21 04:48] LABS: Basophils % (A) 0 %; Eosinophils # (A) 0.1 k/uL (0-0.7); Eosinophils % (A) 0 %; HCT 43.5 % (39.0-53.0); Lymphocytes # (A) 0.4 k/uL (1.0-4.8); Lymphocytes % (A) 3 %; MCH 31.7 pg (25.0-35.0); MCHC 32.2 g/dL (31.0-37.0); MCV 98.5 fL (80.0-100.0); Mean Platelet Volume 8.6; Monocytes # (A) 0.6 k/uL (0-1.0); Monocytes % (A) 5 %; Neutrophils # (A) 10.7 k/uL (1.3-7.7); Neutrophils % (A) 91 %; Platelet Count 194 k/uL (150-450); RBC 4.41 m/uL (4.30-5.90); RDW 12.6 % (11.5-15.5); WBC 11.8 k/uL (3.8-10.6)
[2023-08-21 05:00] LABS: African American GFR (CKD) >90 (>60 ml/min/1.73 sqM); Anion Gap 9 mmol/L; Blood Urea Nitrogen 32 mg/dL (9-20); Calcium 9.3 mg/dL (8.4-10.2); Carbon Dioxide 27 mmol/L (22-30); Chloride 106 mmol/L (98-107); Glucose 199 mg/dL (74-99); Non-African American GFR(CKD) >90 (>60 ml/min/1.73 sqM); Potassium 4.1 mmol/L (3.5-5.1); Sodium 142 mmol/L (137-145)
[2023-08-21 05:38] LABS: ABG Base Excess 4.2 mmol/L; ABG HCO3 30 mmol/L (21-25); ABG Oxygen Saturation 96.2 % (94-97); ABG PCO2 52 mmHg (35-45); ABG PH 7.36 (7.35-7.45); ABG PO2 85 mmHg (83-108); ABG TCO2 31 mmol/L (19-24)
[2023-08-21 06:09] LABS: Glucose,Whole Blood 172 mg/dL (70-110)
--- NOTE | 2023-08-21 08:26 | XR ---
EXAMINATION TYPE: XR chest 1V portable DATE OF EXAM: 08/21/2023 5:17 AM CLINICAL INDICATION:Male, 67 years old with history of Tube placement; COMPARISON: Chest radiographs from 08/20/2023 TECHNIQUE: XR chest 1V portable Frontal view of the chest. FINDINGS: Lungs/Pleura: There is no evidence of pleural effusion, focal consolidation, or pneumothorax. Pulmonary vascularity: Unremarkable. Heart/mediastinum: Cardiomediastinal silhouette is unremarkable. Musculoskeletal: No acute osseous pathology. Endotracheal tip 5.6 cm above the theresa, nasogastric tube below the diaphragm. IMPRESSION: Endotracheal tube and nasogastric tube in appropriate position. Right basilar airspace opacities increased from prior correlate for pneumonia.
[2023-08-21] MEDS: FUROSEMIDE 10 MG/ML 2 ML VIAL IV STA (09:04)
[2023-08-21] MEDS: FUROSEMIDE 10 MG/ML 2 ML VIAL ONE ×2 (09:04→16:48)
[2023-08-21 10:11] LABS: ABG Base Excess 5.6 mmol/L; ABG HCO3 31 mmol/L (21-25); ABG Oxygen Saturation 96.1 % (94-97); ABG PCO2 54 mmHg (35-45); ABG PH 7.37 (7.35-7.45); ABG PO2 90 mmHg (83-108); ABG TCO2 33 mmol/L (19-24)
[2023-08-21 10:12] LABS: Allen Test Performed? no
[2023-08-21] MEDS ORDERED: IPRATROPIUM-ALBUTEROL 3 ML NEB INHALATION PRN (10:25)
--- NOTE | 2023-08-21 10:57 | P.PN ---
Subjective Progress Note Date: 08/21/23 This is a 67-year-old male patient with multiple medical problems including advanced COPD maintained on a combination of Dulera Spiriva on an outpatient basis in addition to obstructive sleep apnea was maintained on CPAP and O2 overnight. The patient is a chronic smoker. The patient was admitted to the intensive care unit because of acute hypercapnic respiratory failure. The patient came into the emergency department yesterday for shortness of breath. He was apparently loading and transporting some material and he became progressively more short of breath and altered and he became unresponsive. He was apparently supported with a [id number]. In the emergency department, the patient had a systolic blood pressure above 200. He was unresponsive. He was also hypotensive. Systolic blood pressure was in the mid 70s. He was still oxygenating adequately. The patient was intubated and placed on mechanical ventilator. His initial blood gases showed a pH of 7.11 with a pCO2 of 94 and pO2 of more than 400. He was started on propofol and he was moved to the intensive care unit. The patient this morning remains sedated on propofol and is calm and comfortable. He is running on a propofol at 40 mcg/kg/min. IV fluids are running at normal saline at a rate of 100 cc an hour. He was given a total of 2 L in the emergency department. Subsequently, he was given a dose of Lasix 40 mg IV and is producing adequate amount of urine output. He is also on norepinephrine running at 0.04 mcg/kg/min. Most recent chest x-ray from this morning shows adequate positioning of the orotracheal tube. The patient has some mild pulm vascular congestion. No airspace disease or consolidation. No lung masses. No atelectasis or clear evidence of pneumonia. Subsequent blood gas from today shows a pH of 7.36 with a pCO2 of 54 and pO2 of 120. No significant orotracheal secretions. His renal function is stable with a creatinine of 0.8. Troponin initially was 0.01 and subsequent level was at 0.2 and the proBNP level was not elevated at 291. The viral panel including influenza, COVID-19 and RSV were all negative. He remains bronchospastic and wheezy and his peak airway pressure is around 37. He remains on a combination of bronchodilators and is currently on DuoNeb and IV Solu-Medrol. He was also started on empiric antibiotic coverage with IV Rocephin and Zithromax. His white cell count at 9.5 with a hemoglobin 14.1 and a platelet count of 156. Sodium is at 141, BUN is at 21 with a creatinine of 0.8 and the rest of the electrolytes are within normal limits. CAT scan of the brain has been done and it shows no acute intracranial process. There is some small vessel ischemic degenerative changes and evidence of cerebral atrophy. His EKG showing a normal sinus rhythm without any significant ST segment elevations. Going back to the history, the patient is a chronic smoker. Noted COPD and obstructive sleep apnea. He also has atrial flutter. He has had previous history of a CVA and the patient apparently has been functional post CVA. He has had a previous carotid artery dissection which led to today CVA. 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 No history of coronary artery disease. No history of any congestion heart failure. Family is at the bedside. On today's evaluation of 08/21/2023, the patient is being seen for a follow-up. The patient remains intubated on mechanical ventilator. This morning, the patient is calm and comfortable on propofol which is running at 35 mcg/kg/min. He is arousable months the sedation has been weaned off. A brief sedation ho liday was done yesterday and the patient was responsive. Meanwhile, the patient remains on the mechanical ventilator on assist-control mode with a rate of 28, tidal volume of 450, FiO2 40% with a PEEP of 5. Blood gas from today showed a pH of 7.36 with a pCO2 of 52 and pO2 of 85. Chest x-ray shows no acute abnormalities. CT angiogram of the chest was done yesterday and it showed no evidence of any pulmonary embolism. There was background COPD and some dependent atelectatic changes in the right lung base with small right-sided pleural effusion. Echocardiogram was done and showed no significant valvular abnormalities and the patient is a preserved LV function. The patient remains on low-dose norepinephrine which is running at 0.04 mcg/kg/min. Fluid balance is +825 cc over the past 24 hours. Based on all this, the patient was given a sedation holiday and the patient was showing adequate mentation. Subsequently, the patient had weaning parameters that are thick adequate and the patient was started on a spontaneous breathing trial with a pressure support of 5 and a PEEP of 5 for the next 30 minutes in consideration for extubation. Less bronchospastic and wheezy on today's evaluation. Remains on bronchodilators. Remains on steroids. Remains on broad-spectrum antibiotics which has a combination of Rocephin and Zithromax. Chest x-ray from today shows no significant interval change. Orotracheal tube is in a good location. Some right basilar atelectatic changes were again noted. Objective - Vital Signs Vital signs: Vital Signs Temp 98.5 F 08/21/23 04:00 Pulse 76 08/21/23 08:27 Resp 39 H 08/21/23 07:15 BP 85/45 08/20/23 20:00 Pulse Ox 95 08/21/23 07:15 FiO2 40 08/21/23 08:01 Intake & Output 08/20/23 08/21/23 08/21/23 18:59 06:59 18:59 Intake Total 819.271 9332.432 83.627 Output Total 1135 415 30 Balance -192.527 1339.432 53.627 Weight 111.674 kg 110.8 kg Intake: IV 576 723 43 Azithromycin 500 mg In 250 Sodium Chloride 0.9% 250 ml @ 250 mls/hr IVPB DAILY@0700 [facility] Rx#: [id number] Sodium Chloride 0.9% 1, 576 473 43 000 ml @ 40 mls/hr IV . Q24H [facility] Rx#:[id number] Intake, IV Titration 121.586 299.432 5.627 Amount Norepinephrine 32 mg In 21.586 27.474 Sodium Chloride 0.9% 218 ml @ 0.03 MCG/KG/MIN 1.57 mls/hr IV .Q24H ONE Rx#: [id number] Norepinephrine 32 mg In 6.23 5.627 Sodium Chloride 0.9% 218 ml @ 0.03 MCG/KG/MIN 1.57 mls/hr IV .Q24H [facility] Rx#: [id number] propofoL 1,000 mg In 100.000 265.728 Empty Bag 1 bag @ 15 MCG/ KG/MIN 10.051 mls/hr IV . Q9H57M [facility] Rx#:[id number] Tube Feeding 210 385 35 Other 60 Output: Urine 1135 415 30 Other: Voiding Method Indwelling Catheter Indwelling Catheter ABP, PAP, CO, CI - Last Documented Arterial Blood Pressure 134/54 - Exam GENERAL EXAM: 67-year-old white male, unresponsive, sedated, and synchronous with mechanical ventilator. Orogastric and orotracheal tube are both in place. HEAD: Normocephalic and atraumatic EYES: Normal reaction of pupils, equal size. NOSE: Clear with pink turbinates. THROAT: No erythema or exudates. NECK: No masses, no JVD. CHEST: No chest wall deformity. LUNGS: Equal air entry with diffuse crackles and rhonchi. Intubated to the mechanical ventilator the patient apparently had some flat secretions for the intubation and currently no active respiratory issues noted. CVS: S1 and S2 normal with no audible murmur, regular rhythm. No extra heart sounds ABDOMEN: No hepatosplenomegaly, active bowel sounds, no guarding or rigidity. SPINE: No scoliosis or deformity SKIN: No rashes CENTRAL NERVOUS SYSTEM: No focal deficits, tone is normal in all 4 extremities. EXTREMITIES: There is no peripheral edema, clubbing, or cyanosis. Peripheral p ulses are intact. - Labs CBC & Chem 7: 08/21/23 04:35 08/21/23 04:35 Labs: Abnormal Lab Results - Last 24 Hours (Table) 08/20/23 08/20/23 08/20/23 Range/Units 06:30 06:30 11:24 WBC (3.8-10.6) k/uL Neutrophils # (1.3-7.7) k/uL Lymphocytes # (1.0-4.8) k/uL ABG pCO2 (35-45) mmHg ABG HCO3 (21-25) mmol/L ABG Total CO2 (19-24) mmol/L BUN (9-20) mg/dL Glucose (74-99) mg/dL POC Glucose (mg/dL) (70-110) mg/dL Hemoglobin A1c 6.1 H (<=6.0) % Troponin I 0.191 H* (0.000-0.034) ng/mL Procalcitonin 0.28 H (0.02-0.09) ng/mL 08/20/23 08/20/23 08/20/23 Range/Units 11:30 17:30 23:55 WBC (3.8-10.6) k/uL Neutrophils # (1.3-7.7) k/uL Lymphocytes # (1.0-4.8) k/uL ABG pCO2 (35-45) mmHg ABG HCO3 (21-25) mmol/L ABG Total CO2 (19-24) mmol/L BUN (9-20) mg/dL Glucose (74-99) mg/dL POC Glucose (mg/dL) 169 H 174 H 169 H (70-110) mg/dL Hemoglobin A1c (<=6.0) % Troponin I (0.000-0.034) ng/mL Procalcitonin (0.02-0.09) ng/mL 08/21/23 08/21/23 08/21/23 Range/Units 04:35 04:35 05:30 WBC 11.8 H (3.8-10.6) k/uL Neutrophils # 10.7 H (1.3-7.7) k/uL Lymphocytes # 0.4 L (1.0-4.8) k/uL ABG pCO2 52 H (35-45) mmHg ABG HCO3 30 H (21-25) mmol/L ABG Total CO2 31 H (19-24) mmol/L BUN 32 H (9-20) mg/dL Glucose 199 H (74-99) mg/dL POC Glucose (mg/dL) (70-110) mg/dL Hemoglobin A1c (<=6.0) % Troponin I (0.000-0.034) ng/mL Procalcitonin (0.02-0.09) ng/mL 08/21/23 Range/Units 06:07 WBC (3.8-10.6) k/uL Neutrophils # (1.3-7.7) k/uL Lymphocytes # (1.0-4.8) k/uL ABG pCO2 (35-45) mmHg ABG HCO3 (21-25) mmol/L ABG Total CO2 (19-24) mmol/L BUN (9-20) mg/dL Glucose (74-99) mg/dL POC Glucose (mg/dL) 172 H (70-110) mg/dL Hemoglobin A1c (<=6.0) % Troponin I (0.000-0.034) ng/mL Procalcitonin (0.02-0.09) ng/mL Microbiology - Last 24 Hours (Table) 08/20/23 01:33 Gram Stain - Preliminary Sputum Assessment and Plan Assessment: Acute hypoxemic and hypercapnic respiratory failure, typical of an acute COPD exacerbation and there may be a component of increased pulm vascular congestion as the patient has increased pulmonary vascular markings on his chest x-ray. CT of the chest shows no pulmonary. No evidence of pneumonia and small atelectatic change and small effusion in the right lung base. Less bronchospastic and wheezy on today's evaluation. Airway pressures are lower in the left is adequate and echocardiogram is also adequate. Remains on low-dose pressors. Currently off sedation the patient undergoing a spontaneous breathing trial in consultation with for extubation. Adequate weaning parameters. Advanced COPD and the patient has been maintained on a combination of Dulera and Spiriva on an outpatient basis and uses albuterol as needed. He is a chronic smoker. Hypotension, given 2 L of normal saline bolus and started on low-dose norepinephrine, currently the patient is on low-dose norepinephrine. Hypertension is still under investigation. Will need a baseline echocardiogram. Mild troponin leak, likely related to a type II myocardial ischemia. No evidence of any acute ischemic changes on the EKG. Cardiac rhythm is sinus. The cardiac rhythm remained sinus and the patient has a preserved LV function on echocardiogram Altered mentation probably just to follow closely. CAT scan of the brain showed no acute abnormalities. Obstructive sleep apnea, with home CPAP device Chronic ongoing tobacco dependence History of hypertension History of paroxysmal atrial fibrillation/flutter, anticoagulated on Xarelto in addition to metoprolol 100 mg p.o. twice a day History of previous carotid artery dissection and CVA Recent history of thymectomy for thymus cancer followed by radiation therapy. History of ischemic stroke several years back, the patient is functional according to the family Occlusion and stenosis of the carotid artery on the left Secondary polycythemia, history of Plan: Continue ventilator support and give the patient a spontaneous breathing trial with a pressure support of 5 and a PEEP of 5. The above. If the subsequent blood gases are adequate, the patient will be extubated to a BiPAP at a pressure of 10 over 5 cm of water. Change IV fluids to 40 cc an hour normal saline Wean off pressors and discontinue to maintain mean arterial pressure above 60 Obtain echocardiogram was noted and the patient has a preserved LV function CTA of the chest chest showed no evidence of any pulmonary embolism Cultures are still pending for now Check procalcitonin level is at 0.28 Antibiotics added with, which are essentially empiric and the patient is currently on a combination of Rocephin and Zithromax Possible extubation today based on his overall clinical response. This is a critical care evaluation that was done in more than 30 minutes. Condition is critical and will continue to follow make further recommendations based on his progress. Time with Patient: Greater than 30
[2023-08-21] MEDS: IPRATROPIUM-ALBUTEROL 3 ML NEB INHALATION SCH (11:14)
[2023-08-21 12:22] LABS: Glucose,Whole Blood 154 mg/dL (70-110)
--- NOTE | 2023-08-21 13:54 | P.PN ---
Subjective HISTORY OF PRESENTING ILLNESS Pleasant 67-year-old male with history of hypertension, hyperlipidemia, paroxysmal atrial fibrillation, CVA with prior dissection, advanced COPD who presents secondary to increasing shortness breath since Saturday. Patient currently unresponsive on ventilator and history is supplied by chart and sons at bedside. Patient does have chronic shortness breath however had been having increasing shortness breath since Saturday and PCP had discussed increasing his inhalers. The patient apparently had an episode where he had increasing shortness breath and then unresponsive. In emergency department initially was noted to be hypertensive with systolics 170s however after stabilizing patient, he became hypotensive requiring norepinephrine. ABG noted to have hypercapnic respiratory failure with pCO2 94. Currently he remains in normal sinus rhythm. Per family he has not follow with a mental health nurse practitioner. He has been tolerating anticoagulation. He did have a chest CTA performed which showed no PE and lower lobe lobe airspace disease. Troponin 0.012, 0.23, 0.19. ProBNP 291. 3/20 Patient seen and examined. Patient extubated and currently on BiPAP. He admits to feeling somewhat short of breath the day before presentation. He denies any chest pain or pressure. Echocardiogram performed with limited images however ejection fraction 60%. PHYSICAL EXAMINATION Vital signs reviewed. CONSTITUTIONAL: No apparent distress, obese, non responsive on vent. HEENT: Head is normocephalic. Pupils are equal, round. Sclerae anicteric. Mucous membranes of the mouth are moist. No JVD. No carotid bruit. CHEST EXAMINATION: Lungs are clear to auscultation. No chest wall tenderness is noted on palpation or with deep breathing. HEART EXAMINATION: Regular rate and rhythm. S1, S2 heard. No murmurs, gallops or rub. ABDOMEN: Soft, nontender. Positive bowel sounds. EXTREMITIES: 2+ peripheral pulses, no lower extremity edema and no calf tenderness. NEUROLOGIC EXAMINATION: Patient is non responsive on vent. ASSESSMENT 1. Acute on chronic respiratory failure likely related to pulmonary source, COPD 2. Non-STEMI, appears type II mechanism related to respiratory failure 3. Altered mental status 4. History of paroxysmal atrial fibrillation, currently sinus rhythm on anticoagulation 5. History of stroke with prior dissection 6. Carotid artery disease 7. Hypotension may be related to sepsis versus other 8. Obesity PLAN Type II mechanism of non-STEMI with normal left ventricular ejection fraction. Relatively normal BNP and normal left ventricular systolic, diastolic function and does not appear related to heart failure. Continue with supportive care. Please call with any questions. Objective - Vital Signs Vital signs: Vital Signs Temp 99.2 F 08/21/23 12:00 Pulse 90 08/21/23 12:30 Resp 26 H 08/21/23 12:30 BP 85/45 08/21/23 12:15 Pulse Ox 95 08/21/23 12:30 FiO2 45 08/21/23 12:00 Intake & Output 08/20/23 08/21/23 08/21/23 18:59 06:59 18:59 Intake Total 226.930 7677.432 418.088 Output Total 1135 415 905 Balance -196.659 2361.432 -486.912 Weight 111.674 kg 110.8 kg Intake: IV 576 723 203 Azithromycin 500 mg In 250 Sodium Chloride 0.9% 250 ml @ 250 mls/hr IVPB DAILY@0700 [facility] Rx#: [id number] Sodium Chloride 0.9% 1, 576 473 203 000 ml @ 40 mls/hr IV . Q24H [facility] Rx#:[id number] Intake, IV Titration 121.586 299.432 115.088 Amount Norepinephrine 32 mg In 21.586 27.474 Sodium Chloride 0.9% 218 ml @ 0.03 MCG/KG/MIN 1.57 mls/hr IV .Q24H ONE Rx#: [id number] Norepinephrine 32 mg In 6.23 8.331 Sodium Chloride 0.9% 218 ml @ 0.03 MCG/KG/MIN 1.57 mls/hr IV .Q24H [facility] Rx#: [id number] propofoL 1,000 mg In 100.000 265.728 106.757 Empty Bag 1 bag @ 15 MCG/ KG/MIN 10.051 mls/hr IV . Q9H57M [facility] Rx#:[id number] Tube Feeding 210 385 70 Other 60 30 Output: Urine 1135 415 905 Other: Voiding Method Indwelling Catheter Indwelling Catheter Indwelling Catheter ABP, PAP, CO, CI - Last Documented Arterial Blood Pressure 125/47 - Labs CBC & Chem 7: 08/21/23 04:35 08/21/23 04:35 Labs: Abnormal Lab Results - Last 24 Hours (Table) 08/20/23 08/20/23 08/20/23 Range/Units 06:30 17:30 23:55 WBC (3.8-10.6) k/uL Neutrophils # (1.3-7.7) k/uL Lymphocytes # (1.0-4.8) k/uL ABG pCO2 (35-45) mmHg ABG HCO3 (21-25) mmol/L ABG Total CO2 (19-24) mmol/L BUN (9-20) mg/dL Glucose (74-99) mg/dL POC Glucose (mg/dL) 174 H 169 H (70-110) mg/dL Hemoglobin A1c 6.1 H (<=6.0) % 08/21/23 08/21/23 08/21/23 Range/Units 04:35 04:35 05:30 WBC 11.8 H (3.8-10.6) k/uL Neutrophils # 10.7 H (1.3-7.7) k/uL Lymphocytes # 0.4 L (1.0-4.8) k/uL ABG pCO2 52 H (35-45) mmHg ABG HCO3 30 H (21-25) mmol/L ABG Total CO2 31 H (19-24) mmol/L BUN 32 H (9-20) mg/dL Glucose 199 H (74-99) mg/dL POC Glucose (mg/dL) (70-110) mg/dL Hemoglobin A1c (<=6.0) % 08/21/23 08/21/23 08/21/23 Range/Units 06:07 10:10 12:20 WBC (3.8-10.6) k/uL Neutrophils # (1.3-7.7) k/uL Lymphocytes # (1.0-4.8) k/uL ABG pCO2 54 H (35-45) mmHg ABG HCO3 31 H (21-25) mmol/L ABG Total CO2 33 H (19-24) mmol/L BUN (9-20) mg/dL Glucose (74-99) mg/dL POC Glucose (mg/dL) 172 H 154 H (70-110) mg/dL Hemoglobin A1c (<=6.0) % Microbiology - Last 24 Hours (Table) 08/20/23 01:47 Blood Culture - Preliminary Blood 08/20/23 01:32 Blood Culture - Preliminary Blood 08/20/23 01:33 Gram Stain - Preliminary Sputum
--- NOTE | 2023-08-21 16:42 | P.PN ---
Subjective Progress Note Date: 08/21/23 Patient is a 67-year-old male with A fib Anticoagulated with Xarelto, COPD, HLD, and HTN who was brought to the ER via EMS after having activated for shortness of breath. By the time he arrived to the ER he was unresponsive and unable to provide any meaningful history. The patient was subsequently intubated. During that time he was noted to be hypertensive with a blood pressure greater than 200 during transport to the ER, and on arrival his blood pressure was 174/89. Evaluation in the ER included CBC, coags, D-dimer, and CMP which were remarkable for white blood cell count of 14.4, INR 1.2. ABG was remarkable for CO2 of 94 and pH of 7.11. Urinalysis was unremarkable. Influenza A/B/COVID-19/RSV was negative. Head CT was performed in the ER but read was unavailable at time of admission. Chest x-ray demonstrated diffuse interstitial infiltrate with small bilateral pleural effusions. He was admitted to the ICU for further monitoring. Was felt that he likely had flash pulmonary edema due to malignant hypertension. However he became hypotensive during the intubation process with a blood pressure down to 72/38.Head CT came back with no acute intracranial abnormality. He had an arterial line placed. He was seen by critical care. He was started on antibiotics with rocephin and zithromax. Patient seen and examined at bedside when he was still intubated. He was follo wing commands. He denies any pain but did complain of feel like he was choking. He denies any shortness of breath. Vital signs reviewed General: Nontoxic, no distress, appears at stated age Cardiovascular: S1S2 reg, no murmur Lungs: Course bs bilateral, no rhonchi, no rales, no accessory muscle use, on vent Abdominal: Soft, nontender to palpation, no guarding Ext: No gross muscle atrophy, no edema b/l lower extremities, no contractures Neuro: following commands, + cough, + gag, + breathing on his own, moving all 4 extremities independently Psych: Awake on vent, following commands, appropriate affect Assessment/Plan: Acute encephalopthy Acute Hypercapnic Respiratory failure Acute respiratory acidosis Acute exacerbation of Severe COPD Haemophilus influenzae tracheobronchitis -Pulmonary note reviewed: Decrease IV fluids, extubate patient to BiPAP if passes weaning trial today. - Duoneb QID, Budesonide 1 mg inh BID, Formoterol 20 mcg INH BID - solumedrol 60 mg IVP q 6 hrs - follow BS while on steroids - Zithromax 500 mg IVPD D # 2/3 - Rocephin 2 gm IVPB daily D# 2 - CTA chest without pulmonary embolism HTN urgency on arrival and now hypotensive A fib anticoagulated with xarelto Type II NSTEMI - wean norepi as able - Xarelto - Amio 200 mg daily - metoprlol on hold due to low BP - Pravacol 40 mg at night. -Cardiology note reviewed: Type II STEMI, will sign off Leukocytosis, reactive and resolved Hx of thymic cancer in remission updated at bedside Imaging: hospital course imaging: Echo reviewed with ejection fraction 55% RV not well-visualized CTA of the chest: No evidence of pulmonary embolism, dependent airspace disease right lower lobe with small pleural effusion Data Review: Labs reviewed from today include CBC and basic metabolic profile which are remarkable for white blood cell count 11.8, BUN 32, and glucose of 199. Sputum cx: Haemophilus influenza DVT prophylaxis: Xarelto Anticipated discharge date: Pending Clinical Course Anticipated discharge place:Pending Clinical Course This dictation was prepared using [employer] voice recognition software. Though every attempt is made to correct errors during dictation some may still exist. Objective - Vital Signs Vital signs: Vital Signs Temp 98.5 F 08/21/23 04:00 Pulse 69 08/21/23 07:15 Resp 39 H 08/21/23 07:15 BP 85/45 08/20/23 20:00 Pulse Ox 95 08/21/23 07:15 FiO2 40 08/21/23 04:00 Intake & Output 08/20/23 08/21/23 08/21/23 18:59 06:59 18:59 Intake Total 060.656 4395.432 83.627 Output Total 1135 415 30 Balance -635.444 2461.432 53.627 Weight 111.674 kg 110.8 kg Intake: IV 576 723 43 Azithromycin 500 mg In 250 Sodium Chloride 0.9% 250 ml @ 250 mls/hr IVPB DAILY@0700 [facility] Rx#: [id number] Sodium Chloride 0.9% 1, 576 473 43 000 ml @ 40 mls/hr IV . Q24H [facility] Rx#:[id number] Intake, IV Titration 121.586 299.432 5.627 Amount Norepinephrine 32 mg In 21.586 27.474 Sodium Chloride 0.9% 218 ml @ 0.03 MCG/KG/MIN 1.57 mls/hr IV .Q24H [facility] Rx#: [id number] Norepinephrine 32 mg In 6.23 5.627 Sodium Chloride 0.9% 218 ml @ 0.03 MCG/KG/MIN 1.57 mls/hr IV .Q24H [facility] Rx#: [id number] propofoL 1,000 mg In 100.000 265.728 Empty Bag 1 bag @ 15 MCG/ KG/MIN 10.051 mls/hr IV . Q9H57M [facility] Rx#:[id number] Tube Feeding 210 385 35 Other 60 Output: Urine 1135 415 30 Other: Voiding Method Indwelling Catheter Indwelling Catheter ABP, PAP, CO, CI - Last Documented Arterial Blood Pressure 134/54 - Labs CBC & Chem 7: 08/21/23 04:35 08/21/23 04:35 Labs: Abnormal Lab Results - Last 24 Hours (Table) 08/20/23 08/20/23 08/20/23 Range/Units 05:20 06:30 06:30 WBC (3.8-10.6) k/uL Neutrophils # (1.3-7.7) k/uL Lymphocytes # (1.0-4.8) k/uL ABG pCO2 (35-45) mmHg ABG HCO3 (21-25) mmol/L ABG Total CO2 (19-24) mmol/L BUN (9-20) mg/dL Glucose (74-99) mg/dL POC Glucose (mg/dL) (70-110) mg/dL Hemoglobin A1c 6.1 H (<=6.0) % Troponin I 0.238 H* (0.000-0.034) ng/mL Procalcitonin 0.28 H (0.02-0.09) ng/mL 08/20/23 08/20/23 08/20/23 Range/Units 11:24 11:30 17:30 WBC (3.8-10.6) k/uL Neutrophils # (1.3-7.7) k/uL Lymphocytes # (1.0-4.8) k/uL ABG pCO2 (35-45) mmHg ABG HCO3 (21-25) mmol/L ABG Total CO2 (19-24) mmol/L BUN (9-20) mg/dL Glucose (74-99) mg/dL POC Glucose (mg/dL) 169 H 174 H (70-110) mg/dL Hemoglobin A1c (<=6.0) % Troponin I 0.191 H* (0.000-0.034) ng/mL Procalcitonin (0.02-0.09) ng/mL 08/20/23 08/21/23 08/21/23 Range/Units 23:55 04:35 04:35 WBC 11.8 H (3.8-10.6) k/uL Neutrophils # 10.7 H (1.3-7.7) k/uL Lymphocytes # 0.4 L (1.0-4.8) k/uL ABG pCO2 (35-45) mmHg ABG HCO3 (21-25) mmol/L ABG Total CO2 (19-24) mmol/L BUN 32 H (9-20) mg/dL Glucose 199 H (74-99) mg/dL POC Glucose (mg/dL) 169 H (70-110) mg/dL Hemoglobin A1c (<=6.0) % Troponin I (0.000-0.034) ng/mL Procalcitonin (0.02-0.09) ng/mL 08/21/23 08/21/23 Range/Units 05:30 06:07 WBC (3.8-10.6) k/uL Neutrophils # (1.3-7.7) k/uL Lymphocytes # (1.0-4.8) k/uL ABG pCO2 52 H (35-45) mmHg ABG HCO3 30 H (21-25) mmol/L ABG Total CO2 31 H (19-24) mmol/L BUN (9-20) mg/dL Glucose (74-99) mg/dL POC Glucose (mg/dL) 172 H (70-110) mg/dL Hemoglobin A1c (<=6.0) % Troponin I (0.000-0.034) ng/mL Procalcitonin (0.02-0.09) ng/mL Microbiology - Last 24 Hours (Table) 08/20/23 01:33 Gram Stain - Preliminary Sputum
[2023-08-21 16:43] LABS: Glucose,Whole Blood 138 mg/dL (70-110)
[2023-08-21] MEDS: propofoL 100 ML IV ONE ×2 (16:48)
[2023-08-21] MEDS ORDERED: bisacodyL 5 MG TABLET.DR PO PRN (18:38)
[2023-08-21 20:11] LABS: Magnesium 1.9 mg/dL (1.6-2.3)
[2023-08-21 21:11] LABS: Glucose,Whole Blood 167 mg/dL (70-110)
[2023-08-21] MEDS: INSULIN ASPART (NovoLOG) 100 UNIT/ML VIAL SQ SCH (21:38)
[2023-08-22] MEDS: cloNIDine HCL 0.1 MG TAB PO STA (01:41)
[2023-08-22 04:19] LABS: Basophils % (A) 0 %; Eosinophils % (A) 0 %; HCT 40.5 % (39.0-53.0); HGB 12.8 gm/dL (13.0-17.5); Lymphocytes # (A) 0.3 k/uL (1.0-4.8); Lymphocytes % (A) 4 %; MCH 31.2 pg (25.0-35.0); MCHC 31.6 g/dL (31.0-37.0); MCV 98.7 fL (80.0-100.0); Mean Platelet Volume 8.9; Monocytes # (A) 0.3 k/uL (0-1.0); Monocytes % (A) 4 %; Neutrophils # (A) 7.4 k/uL (1.3-7.7); Neutrophils % (A) 92 %; Platelet Count 151 k/uL (150-450); RDW 12.5 % (11.5-15.5)
[2023-08-22 04:23] LABS: African American GFR (CKD) >90 (>60 ml/min/1.73 sqM); Anion Gap 1 mmol/L; Blood Urea Nitrogen 31 mg/dL (9-20); Calcium 8.8 mg/dL (8.4-10.2); Carbon Dioxide 34 mmol/L (22-30); Chloride 106 mmol/L (98-107); Glucose 157 mg/dL (74-99); Non-African American GFR(CKD) >90 (>60 ml/min/1.73 sqM); Potassium 4.5 mmol/L (3.5-5.1); Sodium 141 mmol/L (137-145)
[2023-08-22 06:52] LABS: Glucose,Whole Blood 134 mg/dL (70-110)
[2023-08-22] MEDS ORDERED: INSULIN ASPART (NovoLOG) 100 UNIT/ML VIAL SQ SCH (07:30)
--- NOTE | 2023-08-22 08:21 | XR ---
EXAMINATION TYPE: XR chest 1V portable DATE OF EXAM: 08/22/2023 5:56 AM CLINICAL INDICATION:Male, 67 years old with history of Tube placement; [facility] COMPARISON: Chest radiograph from one day prior. TECHNIQUE: XR chest 1V portable Frontal view of the chest. FINDINGS: Lungs/Pleura: There is no evidence of pleural effusion, focal consolidation, or pneumothorax. Pulmonary vascularity: Unremarkable. Heart/mediastinum: Cardiomediastinal silhouette is unremarkable. Musculoskeletal: No acute osseous pathology. Other findings: None Lines/Tubes: Interval removal of the endotracheal tube. Interval removal of the enteric tube, IMPRESSION: Bibasilar atelectasis with interval extubation
[2023-08-22] MEDS: METOPROLOL SUCCINATE (ER) 100 MG TAB.ER.24H PO SCH (09:11)
[2023-08-22] MEDS: FUROSEMIDE 10 MG/ML 2 ML VIAL IV ONE (09:11)
--- NOTE | 2023-08-22 09:57 | CDI ---
From: Caridad Cardenas Phone: [phone] Admit Date: 08/20/2023 04:54:00 AM Patient Name: Darius Rizzo Visit Number: [id number] Discharge Date: ATTENTION: The Clinical Documentation Specialists (CDI) and [facility] Coding Staff appreciate your assistance in clarifying documentation. Please respond to the clarification below the line at the bottom and electronically sign. The CDI & [facility] Coding staff will review the response and follow-up if needed. Please note: Queries are made part of the Legal Health Record. If you have any questions, please contact the author of this message via ITS. Dr. Portia Patricia Shock is documented in the procedure note 08/19. Additional clarification regarding the type of shock is requested. Patient history/risk factors: COPD, AFib, HTN who presents with SOB and became unresponsive on arrival found to have acute exacerbation of COPD, acute respiratory acidosis, flash pulmonary edema-intubated and on ventilator in ED Clinical Indicators: 08/19 Triage VS: 174/89, 72, 10, 99% BVM 08/19 VS (Post intubation): 79/39, 97.9, 77, 15, 98% vent 08/19 H&P, Assessment/Plan: "Flash pulmonary edema. Malignant hypertension. After intubation patient became hypotensive requiring aggressive resuscitation with IV fluids" 08/19 Cardiology consult, Assessment: "2. Non-STEMI, appears type II mechanism related to respiratory failure." 08/19 Procedure note, Insertion of a left wrist arterial line: Pre and Post- Operative Diagnosis: "Hypotension and shock" 08/19-08/21 WBC: 14.4, 9.5, 11.8, 8.0 08/19 Lactic Acid: 1.0 08/19 Troponin: <0.012, 0.238 08/19 x2 ABG: pH: 7.11, pCO2: 94, pO2: >400, HCO3: 30, Total CO2: 33, O2 Saturation: 100, Base Excess: 0.6 pH: 7.36, pCO2: 54, pO2: 120, HCO3: 31, Total CO2: 32, O2 Saturation 98, Base excess: 5.1 08/19 ECHO, EF 55% 08/19 Chest X Ray, Impression: "Feeding tube or vascular congestion and small bilateral pleural effusions, consistent with congestive heart failure." 08/20 Chest X Ray, Impression: Right basilar airspace opacities increased from prior correlate for pneumonia." Treatment: Intubation, Mechanical ventilation, Admit to Critical Care Azithromycin 500mg IV daily X 3 doses 08/19-08/21 Ceftriaxone 1gram IV once 08/19 then 2gram IV Q24H start 08/20 Normal Saline 1000cc bolus X2 on 08/19 Lasix 40mg IV once 08/19 Norepinephrine titrated drip 08/19-08/10 Sodium Bicarb 1Meq/ml- 50mls once 08/19 Please clarify the type of shock, if known: [ x ] Septic Shock [ ] Hypovolemic Shock [ ] Cardiogenic Shock [ ] Other, please specify [ ] Unable to determine MTDD
[2023-08-22 11:20] LABS: Glucose,Whole Blood 157 mg/dL (70-110)
[2023-08-22] MEDS: MORPHINE SULFATE 4 MG/ML SYRINGE IV PRN (13:37)
--- NOTE | 2023-08-22 15:42 | P.PN ---
Subjective Progress Note Date: 08/22/23 This is a 67-year-old male patient with multiple medical problems including advanced COPD maintained on a combination of Dulera Spiriva on an outpatient basis in addition to obstructive sleep apnea was maintained on CPAP and O2 overnight. The patient is a chronic smoker. The patient was admitted to the intensive care unit because of acute hypercapnic respiratory failure. The patient came into the emergency department yesterday for shortness of breath. He was apparently loading and transporting some material and he became progressively more short of breath and altered and he became unresponsive. He was apparently supported with a [id number]. In the emergency department, the patient had a systolic blood pressure above 200. He was unresponsive. He was also hypotensive. Systolic blood pressure was in the mid 70s. He was still oxygenating adequately. The patient was intubated and placed on mechanical ventilator. His initial blood gases showed a pH of 7.11 with a pCO2 of 94 and pO2 of more than 400. He was started on propofol and he was moved to the intensive care unit. The patient this morning remains sedated on propofol and is calm and comfortable. He is running on a propofol at 40 mcg/kg/min. IV fluids are running at normal saline at a rate of 100 cc an hour. He was given a total of 2 L in the emergency department. Subsequently, he was given a dose of Lasix 40 mg IV and is producing adequate amount of urine output. He is also on norepinephrine running at 0.04 mcg/kg/min. Most recent chest x-ray from this morning shows adequate positioning of the orotracheal tube. The patient has some mild pulm vascular congestion. No airspace disease or consolidation. No lung masses. No atelectasis or clear evidence of pneumonia. Subsequent blood gas from today shows a pH of 7.36 with a pCO2 of 54 and pO2 of 120. No significant orotracheal secretions. His renal function is stable with a creatinine of 0.8. Troponin initially was 0.01 and subsequent level was at 0.2 and the proBNP level was not elevated at 291. The viral panel including influenza, COVID-19 and RSV were all negative. He remains bronchospastic and wheezy and his peak airway pressure is around 37. He remains on a combination of bronchodilators and is currently on DuoNeb and IV Solu-Medrol. He was also started on empiric antibiotic coverage with IV Rocephin and Zithromax. His white cell count at 9.5 with a hemoglobin 14.1 and a platelet count of 156. Sodium is at 141, BUN is at 21 with a creatinine of 0.8 and the rest of the electrolytes are within normal limits. CAT scan of the brain has been done and it shows no acute intracranial process. There is some small vessel ischemic degenerative changes and evidence of cerebral atrophy. His EKG showing a normal sinus rhythm without any significant ST segment elevations. Going back to the history, the patient is a chronic smoker. Noted COPD and obstructive sleep apnea. He also has atrial flutter. He has had previous history of a CVA and the patient apparently has been functional post CVA. He has had a previous carotid artery dissection which led to today CVA. 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 No history of coronary artery disease. No history of any congestion heart failure. Family is at the bedside. On today's evaluation of 08/21/2023, the patient is being seen for a follow-up. The patient remains intubated on mechanical ventilator. This morning, the patient is calm and comfortable on propofol which is running at 35 mcg/kg/min. He is arousable months the sedation has been weaned off. A brief sedation ho liday was done yesterday and the patient was responsive. Meanwhile, the patient remains on the mechanical ventilator on assist-control mode with a rate of 28, tidal volume of 450, FiO2 40% with a PEEP of 5. Blood gas from today showed a pH of 7.36 with a pCO2 of 52 and pO2 of 85. Chest x-ray shows no acute abnormalities. CT angiogram of the chest was done yesterday and it showed no evidence of any pulmonary embolism. There was background COPD and some dependent atelectatic changes in the right lung base with small right-sided pleural effusion. Echocardiogram was done and showed no significant valvular abnormalities and the patient is a preserved LV function. The patient remains on low-dose norepinephrine which is running at 0.04 mcg/kg/min. Fluid balance is +825 cc over the past 24 hours. Based on all this, the patient was given a sedation holiday and the patient was showing adequate mentation. Subsequently, the patient had weaning parameters that are thick adequate and the patient was started on a spontaneous breathing trial with a pressure support of 5 and a PEEP of 5 for the next 30 minutes in consideration for extubation. Less bronchospastic and wheezy on today's evaluation. Remains on bronchodilators. Remains on steroids. Remains on broad-spectrum antibiotics which has a combination of Rocephin and Zithromax. Chest x-ray from today shows no significant interval change. Orotracheal tube is in a good location. Some right basilar atelectatic changes were again noted. 08/22/2023, the patient is awake and alert and extubated and the patient is currently on 4 L of O2 nasal cannula with a pulse ox of 95%. Still bronchospastic and wheezy. No chest pain. Chest x-ray from today shows no acute cardiopulmonary abnormalities. There are some increased pulmonary vascular markings. Denies having any chest pain. No cough or sputum production. Norepinephrine has been discontinued. No signs of any CO2 narcosis. No other complaints otherwise. Objective - Vital Signs Vital signs: Vital Signs Temp 98.6 F 08/22/23 04:00 Pulse 78 08/22/23 08:46 Resp 16 08/22/23 07:00 BP 132/66 08/22/23 02:30 Pulse Ox 95 08/22/23 07:00 FiO2 40 08/22/23 05:00 Intake & Output 08/21/23 08/22/23 08/22/23 18:59 06:59 18:59 Intake Total 698.088 530 290 Output Total 1405 565 65 Balance -706.912 -35 225 Weight 110.3 kg Intake: IV 483 530 290 Azithromycin 500 mg In 250 Sodium Chloride 0.9% 250 ml @ 250 mls/hr IVPB DAILY@0700 [facility] Rx#: [id number] Sodium Chloride 0.9% 1, 483 480 40 000 ml @ 40 mls/hr IV . Q24H [facility] Rx#:[id number] cefTRIAXone 2 gm In 50 Sodium Chloride 0.9% 50 ml @ 100 mls/hr IVPB Q24H [facility] Rx#:[id number] Intake, IV Titration 115.088 Amount Norepinephrine 32 mg In 8.331 Sodium Chloride 0.9% 218 ml @ 0.03 MCG/KG/MIN 1.57 mls/hr IV .Q24H [facility] Rx#: [id number] propofoL 1,000 mg In 106.757 Empty Bag 1 bag @ 15 MCG/ KG/MIN 10.051 mls/hr IV . Q9H57M [facility] Rx#:[id number] Tube Feeding 70 Other 30 Output: Urine 1405 565 65 Other: Voiding Method Indwelling Catheter Indwelling Catheter ABP, PAP, CO, CI - Last Documented Arterial Blood Pressure 176/76 - Exam GENERAL EXAM: 67-year-old white male, awake and alert and extubated to 4 L of O2 nasal cannula HEAD: Normocephalic and atraumatic EYES: Normal reaction of pupils, equal size. NOSE: Clear with pink turbinates. THROAT: No erythema or exudates. NECK: No masses, no JVD. CHEST: No chest wall deformity. LUNGS: Equal air entry with diffuse crackles and rhonchi. Breath sounds are equal and symmetrical and there is prolongation of isolation phase of breathing and expiratory wheezing heard bilaterally CVS: S1 and S2 normal with no audible murmur, regular rhythm. No extra heart sounds ABDOMEN: No hepatosplenomegaly, active bowel sounds, no guarding or rigidity. SPINE: No scoliosis or deformity SKIN: No rashes CENTRAL NERVOUS SYSTEM: No focal deficits, tone is normal in all 4 extremities. EXTREMITIES: There is no peripheral edema, clubbing, or cyanosis. Peripheral pulses are intact. - Labs CBC & Chem 7: 08/22/23 04:00 08/22/23 04:00 Labs: Abnormal Lab Results - Last 24 Hours (Table) 08/21/23 08/21/23 08/21/23 Range/Units 10:10 12:20 16:41 RBC (4.30-5.90) m/uL Hgb (13.0-17.5) gm/dL Lymphocytes # (1.0-4.8) k/uL ABG pCO2 54 H (35-45) mmHg ABG HCO3 31 H (21-25) mmol/L ABG Total CO2 33 H (19-24) mmol/L Carbon Dioxide (22-30) mmol/L BUN (9-20) mg/dL Creatinine (0.66-1.25) mg/dL Glucose (74-99) mg/dL POC Glucose (mg/dL) 154 H 138 H (70-110) mg/dL 08/21/23 08/22/23 08/22/23 Range/Units 21:09 04:00 04:00 RBC 4.10 L (4.30-5.90) m/uL Hgb 12.8 L (13.0-17.5) gm/dL Lymphocytes # 0.3 L (1.0-4.8) k/uL ABG pCO2 (35-45) mmHg ABG HCO3 (21-25) mmol/L ABG Total CO2 (19-24) mmol/L Carbon Dioxide 34 H (22-30) mmol/L BUN 31 H (9-20) mg/dL Creatinine 0.54 L (0.66-1.25) mg/dL Glucose 157 H (74-99) mg/dL POC Glucose (mg/dL) 167 H (70-110) mg/dL 08/22/23 Range/Units 06:51 RBC (4.30-5.90) m/uL Hgb (13.0-17.5) gm/dL Lymphocytes # (1.0-4.8) k/uL ABG pCO2 (35-45) mmHg ABG HCO3 (21-25) mmol/L ABG Total CO2 (19-24) mmol/L Carbon Dioxide (22-30) mmol/L BUN (9-20) mg/dL Creatinine (0.66-1.25) mg/dL Glucose (74-99) mg/dL POC Glucose (mg/dL) 134 H (70-110) mg/dL Microbiology - Last 24 Hours (Table) 08/20/23 01:33 Gram Stain - Preliminary Sputum Sputum Culture - Preliminary Haemophilus species 08/20/23 01:47 Blood Culture - Preliminary Blood 08/20/23 01:32 Blood Culture - Preliminary Blood Assessment and Plan Assessment: Acute hypoxemic and hypercapnic respiratory failure, typical of an acute COPD exacerbation and there may be a component of increased pulm vascular congestion as the patient has increased pulmonary vascular markings on his chest x-ray. CT of the chest shows no pulmonary. No evidence of pneumonia and small atelectatic change and small effusion in the right lung base. Less bronchospastic and wheezy on today's evaluation. Patient is currently extubated on 4 L of oxygen by nasal cannula Advanced COPD and the patient has been maintained on a combination of Dulera and Spiriva on an outpatient basis and uses albuterol as needed. He is a chronic smoker. Hypotension, recovered and the patient was resuscitated with fluids and pressors. Pressors have been discontinued Mild troponin leak, likely related to a type II myocardial ischemia. No evidence of any acute ischemic changes on the EKG. Cardiac rhythm is sinus. The cardiac rhythm remained sinus and the patient has a preserved LV function on echocardiogram Altered mentation probably just to CO2 narcosis, recovered Obstructive sleep apnea, with home CPAP device Chronic ongoing tobacco dependence History of hypertension History of paroxysmal atrial fibrillation/flutter, anticoagulated on Xarelto in addition to metoprolol 100 mg p.o. XL 1 tablet a day History of previous carotid artery dissection and CVA Recent history of thymectomy for thymus cancer followed by radiation therapy. History of ischemic stroke several years back, the patient is functional accordi ng to the family Occlusion and stenosis of the carotid artery on the left Secondary polycythemia, history of Plan: Titrate oxygen flow to maintain saturation above 90% Utilize BiPAP overnight at a pressure of 10 over 5 cm of water Change IV fluids to KVO Patient is currently off pressors Obtain echocardiogram was noted and the patient has a preserved LV function CTA of the chest chest showed no evidence of any pulmonary embolism Cultures are still pending for now Check procalcitonin level is at 0.28 Discontinue Rodriguez catheter, central line and arterial line Given dose of Lasix 20 mg IV push Started patient on Symbicort 2 puffs twice a day Antibiotics added with, which are essentially empiric and the patient is currently on a combination of Rocephin and Zithromax Continue to follow
[2023-08-22] MEDS ORDERED: ONDANSETRON 4 MG/2 ML VIAL IVP PRN (16:34)
[2023-08-22] MEDS ORDERED: bisacodyL 5 MG TABLET.DR PO PRN (16:34)
[2023-08-22] MEDS ORDERED: MELATONIN 5 MG TABLET PO PRN (16:34)
--- NOTE | 2023-08-22 16:38 | P.PN ---
Subjective Progress Note Date: 08/22/23 (delayed charting seen at 0945) Patient is a 67-year-old male with A fib Anticoagulated with Xarelto, COPD, HLD, and HTN who was brought to the ER via EMS after having activated for shortness of breath. By the time he arrived to the ER he was unresponsive and unable to provide any meaningful history. The patient was subsequently intubated. During that time he was noted to be hypertensive with a blood pressure greater than 200 during transport to the ER, and on arrival his blood pressure was 174/89. Evaluation in the ER included CBC, coags, D-dimer, and CMP which were remarkable for white blood cell count of 14.4, INR 1.2. ABG was remarkable for CO2 of 94 and pH of 7.11. Urinalysis was unremarkable. Influenza A/B/COVID-19/RSV was negative. Head CT was performed in the ER but read was unavailable at time of admission. Chest x-ray demonstrated diffuse interstitial infiltrate with small bilateral pleural effusions. He was admitted to the ICU for further monitoring. Was felt that he likely had flash pulmonary edema due to malignant hypertension. However he became hypotensive during the intubation process with a blood pressure down to 72/38.Head CT came back with no acute intracranial abnormality. He had an arterial line placed. He was seen by critical care. He was started on antibiotics with rocephin and zithromax. Norepinephrine was weaned on 08/20 and the patient was successfully extubated to BiPAP and then weaned to nasal cannula later that day Patient seen and examined at bedside. He is awake and alert today. He is much more interactive. We discussed that he needs to seek help earlier during his COPD exacerbation. We again discussed the causes of COPD exacerbation. He denies any chest pain, nausea, vomiting. No other complaints currently. Vital signs reviewed General: Nontoxic, no distress, appears at stated age Cardiovascular: S1S2 reg, no murmur Lungs: Course bs bilateral, no rhonchi, no rales, no accessory muscle use, on vent Abdominal: Soft, nontender to palpation, no guarding Ext: No gross muscle atrophy, no edema b/l lower extremities, no contractures Neuro: following commands, + cough, + gag, + breathing on his own, moving all 4 extremities independently Psych: Awake on vent, following commands, appropriate affect Assessment/Plan: Acute encephalopthy Acute Hypercapnic Respiratory failure Acute respiratory acidosis Acute exacerbation of Severe COPD Haemophilus influenzae tracheobronchitis -Critical care note reviewed: BiPAP at night, KVO fluids - Duoneb QID, Symbicort BID - solumedrol 60 mg IVP q 6 hrs - follow BS while on steroids - Rocephin 2 gm IVPB daily D# 3, zithromax completed - CTA chest without pulmonary embolism HTN urgency on arrival and now hypotensive A fib anticoagulated with xarelto Type II NSTEMI - Xarelto - Amio 200 mg daily - metoprlol on hold due to low BP - Pravacol 40 mg at night. -Cardiology note reviewed: Type II STEMI, will sign off Nicotine dependency - nicotine replacement Leukocytosis, reactive and resolved Hx of thymic cancer in remission Imaging: None new hospital course imaging: Echo reviewed with ejection fraction 55% RV not well-visualized CTA of the chest: No evidence of pulmonary embolism, dependent airspace disease right lower lobe with small pleural effusion Data Review: Labs reviewed from today include CBC and basic metabolic profile which are rather unremarkable. DVT prophylaxis: Xarelto Anticipated discharge date: Pending Clinical Course Anticipated discharge place:Pending Clinical Course This dictation was prepared using locr voice recognition software. Though every attempt is made to correct errors during dictation some may still exist. Objective - Vital Signs Vital signs: Vital Signs Temp 98.4 F 08/22/23 14:00 Pulse 85 08/22/23 16:10 Resp 15 08/22/23 15:00 BP 136/71 08/22/23 15:00 Pulse Ox 95 08/22/23 15:00 FiO2 40 08/22/23 05:00 Intake & Output 08/21/23 08/22/23 08/22/23 18:59 06:59 18:59 Intake Total 698.088 530 410 Output Total 1405 565 870 Balance -706.912 -35 -460 Weight 110.3 kg Intake: IV 483 530 410 Azithromycin 500 mg In 250 Sodium Chloride 0.9% 250 ml @ 250 mls/hr IVPB DAILY@0700 [facility] Rx#: [id number] Sodium Chloride 0.9% 1, 483 480 160 000 ml @ 10 mls/hr IV . Q24H [facility] Rx#:[id number] cefTRIAXone 2 gm In 50 Sodium Chloride 0.9% 50 ml @ 100 mls/hr IVPB Q24H [facility] Rx#:[id number] Intake, IV Titration 115.088 Amount Norepinephrine 32 mg In 8.331 Sodium Chloride 0.9% 218 ml @ 0.03 MCG/KG/MIN 1.57 mls/hr IV .Q24H [facility] Rx#: [id number] propofoL 1,000 mg In 106.757 Empty Bag 1 bag @ 15 MCG/ KG/MIN 10.051 mls/hr IV . Q9H57M [facility] Rx#:[id number] Tube Feeding 70 Other 30 Output: Urine 1405 565 870 Other: Voiding Method Indwelling Catheter Indwelling Catheter Indwelling Catheter ABP, PAP, CO, CI - Last Documented Arterial Blood Pressure 155/57 - Labs CBC & Chem 7: 08/22/23 04:00 08/22/23 04:00 Labs: Abnormal Lab Results - Last 24 Hours (Table) 08/21/23 08/21/23 08/22/23 Range/Units 16:41 21:09 04:00 RBC 4.10 L (4.30-5.90) m/uL Hgb 12.8 L (13.0-17.5) gm/dL Lymphocytes # 0.3 L (1.0-4.8) k/uL Carbon Dioxide (22-30) mmol/L BUN (9-20) mg/dL Creatinine (0.66-1.25) mg/dL Glucose (74-99) mg/dL POC Glucose (mg/dL) 138 H 167 H (70-110) mg/dL 08/22/23 08/22/23 08/22/23 Range/Units 04:00 06:51 11:19 RBC (4.30-5.90) m/uL Hgb (13.0-17.5) gm/dL Lymphocytes # (1.0-4.8) k/uL Carbon Dioxide 34 H (22-30) mmol/L BUN 31 H (9-20) mg/dL Creatinine 0.54 L (0.66-1.25) mg/dL Glucose 157 H (74-99) mg/dL POC Glucose (mg/dL) 134 H 157 H (70-110) mg/dL Microbiology - Last 24 Hours (Table) 08/20/23 01:47 Blood Culture - Preliminary Blood 08/20/23 01:32 Blood Culture - Preliminary Blood 08/20/23 01:33 Gram Stain - Final Sputum Sputum Culture - Final Haemophilus influenzae
[2023-08-22 16:42] LABS: Glucose,Whole Blood 130 mg/dL (70-110)
[2023-08-22] MEDS: BENZOCAINE/MENTHOL LOZENG 1 EACH LOZENGE MUCOUS MEM PRN (17:39)
[2023-08-22 20:10] LABS: Glucose,Whole Blood 185 mg/dL (70-110)
[2023-08-22] MEDS: SYMBICORT 160-4.5 MCG INHALER INHALATION SCH (20:37)
[2023-08-22] MEDS: ACETAMINOPHEN TAB 325 MG TAB PO PRN (23:09)
[2023-08-23] MEDS: NICOTINE 21MG/24HR PATCH TRANSDERM SCH (01:04)
[2023-08-23] MEDS: NOREPINEPHRINE 4 MG in SODIUM CHLORIDE 0.9% 250 ML IV SCH (01:06)
[2023-08-23] MEDS: HYDROcodone/APAP 5-325MG 1 EACH TAB PO PRN (02:34)
[2023-08-23 06:15] LABS: Basophils % (A) 0 %; Eosinophils % (A) 0 %; HCT 45.4 % (39.0-53.0); HGB 14.1 gm/dL (13.0-17.5); Lymphocytes # (A) 0.4 k/uL (1.0-4.8); Lymphocytes % (A) 5 %; MCV 100.2 fL (80.0-100.0); Mean Platelet Volume 8.5; Monocytes # (A) 0.5 k/uL (0-1.0); Monocytes % (A) 6 %; Neutrophils # (A) 7.6 k/uL (1.3-7.7); Neutrophils % (A) 88 %; Platelet Count 184 k/uL (150-450); RBC 4.53 m/uL (4.30-5.90); RDW 12.4 % (11.5-15.5); WBC 8.6 k/uL (3.8-10.6)
[2023-08-23 06:40] LABS: African American GFR (CKD) >90 (>60 ml/min/1.73 sqM); Anion Gap 1 mmol/L; Blood Urea Nitrogen 35 mg/dL (9-20); Calcium 9.3 mg/dL (8.4-10.2); Carbon Dioxide 37 mmol/L (22-30); Chloride 100 mmol/L (98-107); Glucose 159 mg/dL (74-99); Non-African American GFR(CKD) >90 (>60 ml/min/1.73 sqM); Potassium 4.5 mmol/L (3.5-5.1); Sodium 138 mmol/L (137-145)
[2023-08-23 07:09] LABS: Glucose,Whole Blood 155 mg/dL (70-110)
[2023-08-23] MEDS: PANTOPRAZOLE 40 MG TABLET PO SCH (08:31)
--- NOTE | 2023-08-23 08:41 | XR ---
EXAMINATION TYPE: XR chest 1V portable DATE OF EXAM: 08/23/2023 7:21 AM CLINICAL INDICATION:Male, 67 years old with history of atelectasis vs bilateral infiltrates; [facility] COMPARISON: Chest radiographs from TECHNIQUE: XR chest 1V portable Frontal view of the chest. FINDINGS: Lungs/Pleura: Bibasilar atelectasis. No evidence for pneumothorax, pleural effusion or focal consolid ation. Pulmonary vascularity: Unremarkable. Heart/mediastinum: Cardiomediastinal silhouette is unremarkable. Musculoskeletal: No acute osseous pathology. IMPRESSION: Similar probable basilar atelectasis versus infiltrate.
[2023-08-23 11:53] LABS: Glucose,Whole Blood 193 mg/dL (70-110)
[2023-08-23 11:56] VITALS: BMI 33.3
--- NOTE | 2023-08-23 12:11 | P.PN ---
Subjective Progress Note Date: 08/23/23 Patient is a 67-year-old male with A fib Anticoagulated with Xarelto, COPD, HLD, and HTN who was brought to the ER via EMS after having activated for shortness of breath. By the time he arrived to the ER he was unresponsive and unable to provide any meaningful history. The patient was subsequently intubated. During that time he was noted to be hypertensive with a blood pressure greater than 200 during transport to the ER, and on arrival his blood pressure was 174/89. Evaluation in the ER included CBC, coags, D-dimer, and CMP which were remarkable for white blood cell count of 14.4, INR 1.2. ABG was remarkable for CO2 of 94 and pH of 7.11. Urinalysis was unremarkable. Influenza A/B/COVID-19/RSV was negative. Head CT was performed in the ER but read was unavailable at time of admission. Chest x-ray demonstrated diffuse interstitial infiltrate with small bilateral pleural effusions. He was admitted to the ICU for further monitoring. Was felt that he likely had flash pulmonary edema due to malignant hypertension. However he became hypotensive during the intubation process with a blood pressure down to 72/38.Head CT came back with no acute intracranial abnormality. He had an arterial line placed. He was seen by critical care. He was started on antibiotics with rocephin and zithromax. Norepinephrine was weaned on 08/20 and the patient was successfully extubated to BiPAP and then weaned to nasal cannula later that day Patient seen and examined at bedside. He states his breathing is much better than yesterday. Denies any nausea, vomiting, chest pain. We discussed that he should have home health at home. He does not want this but I stated that would really be in his best interest. Vital signs reviewed General: Nontoxic, no distress, appears at stated age Cardiovascular: S1S2 reg, no murmur Lungs: Course bs bilateral, no rhonchi, no rales, no accessory muscle use, on vent Abdominal: Soft, nontender to palpation, no guarding Ext: No gross muscle atrophy, no edema b/l lower extremities, no contractures Neuro: following commands, + cough, + gag, + breathing on his own, moving all 4 extremities independently Psych: Awake on vent, following commands, appropriate affect Assessment/Plan: Acute encephalopthy Acute Hypercapnic Respiratory failure Acute respiratory acidosis Acute exacerbation of Severe COPD Haemophilus influenzae tracheobronchitis -Critical care note reviewed: BiPAP at night, KVO fluids - Duoneb QID, Symbicort BID - solumedrol 60 mg IVP q 6 hrs - follow BS while on steroids - Rocephin 2 gm IVPB daily D# 4, zithromax completed - CTA chest without pulmonary embolism HTN urgency on arrival and now hypotensive A fib anticoagulated with xarelto Type II NSTEMI - Xarelto - Amio 200 mg daily - metoprolol on hold due to low BP - Pravachol 40 mg at night. - Cardiology note reviewed: Type II STEMI, signed off Nicotine dependency - nicotine replacement Leukocytosis, reactive and resolved Hx of thymic cancer in remission Imaging: None new hospital course imaging: Echo reviewed with ejection fraction 55% RV not well-visualized CTA of the chest: No evidence of pulmonary embolism, dependent airspace disease right lower lobe with small pleural effusion Data Review: Labs reviewed from today include CBC and basic metabolic profile, unremarkable DVT prophylaxis: Xarelto Anticipated discharge date: Pending Clinical Course Anticipated discharge place:Pending Clinical Course This dictation was prepared using [employer] voice recognition software. Though every attempt is made to correct errors during dictation some may still exist. Objective - Vital Signs Vital signs: Vital Signs Temp 97.7 F 08/23/23 07:10 Pulse 64 08/23/23 08:16 Resp 16 08/23/23 08:16 BP 165/84 08/23/23 07:10 Pulse Ox 94 L 08/23/23 09:29 FiO2 40 08/22/23 05:00 Intake & Output 08/22/23 08/23/23 08/23/23 18:59 06:59 18:59 Intake Total 410 350 Output Total 920 500 Balance -510 -150 Weight 108.5 kg Intake: IV 410 Azithromycin 500 mg In 250 Sodium Chloride 0.9% 250 ml @ 250 mls/hr IVPB DAILY@0700 [facility] Rx#: [id number] Sodium Chloride 0.9% 1, 160 000 ml @ 10 mls/hr IV . Q24H [facility] Rx#:[id number] Intake, IV Titration 50 Amount cefTRIAXone 2 gm In 50 Sodium Chloride 0.9% 50 ml @ 100 mls/hr IVPB Q24H [facility] Rx#:[id number] Oral 300 Output: Urine 920 500 Other: Voiding Method Indwelling Catheter Indwelling Catheter Toilet # Voids 1 # Bowel Movements 1 ABP, PAP, CO, CI - Last Documented Arterial Blood Pressure 155/57 - Labs CBC & Chem 7: 08/23/23 05:38 08/23/23 05:38 Labs: Abnormal Lab Results - Last 24 Hours (Table) 08/22/23 08/22/23 08/23/23 Range/Units 16:40 20:07 05:38 MCV 100.2 H (80.0-100.0) fL Lymphocytes # 0.4 L (1.0-4.8) k/uL Carbon Dioxide (22-30) mmol/L BUN (9-20) mg/dL Glucose (74-99) mg/dL POC Glucose (mg/dL) 130 H 185 H (70-110) mg/dL 08/23/23 08/23/23 Range/Units 05:38 07:07 MCV (80.0-100.0) fL Lymphocytes # (1.0-4.8) k/uL Carbon Dioxide 37 H (22-30) mmol/L BUN 35 H (9-20) mg/dL Glucose 159 H (74-99) mg/dL POC Glucose (mg/dL) 155 H (70-110) mg/dL Microbiology - Last 24 Hours (Table) 08/20/23 01:47 Blood Culture - Preliminary Blood 08/20/23 01:32 Blood Culture - Preliminary Blood 08/20/23 01:33 Gram Stain - Final Sputum Sputum Culture - Final Haemophilus influenzae
--- NOTE | 2023-08-23 16:37 | P.PN ---
Subjective Progress Note Date: 08/23/23 This is a 67-year-old male patient with multiple medical problems including advanced COPD maintained on a combination of Dulera Spiriva on an outpatient basis in addition to obstructive sleep apnea was maintained on CPAP and O2 overnight. The patient is a chronic smoker. The patient was admitted to the intensive care unit because of acute hypercapnic respiratory failure. The patient came into the emergency department yesterday for shortness of breath. He was apparently loading and transporting some material and he became progressively more short of breath and altered and he became unresponsive. He was apparently supported with a [id number]. In the emergency department, the patient had a systolic blood pressure above 200. He was unresponsive. He was also hypotensive. Systolic blood pressure was in the mid 70s. He was still oxygenating adequately. The patient was intubated and placed on mechanical ventilator. His initial blood gases showed a pH of 7.11 with a pCO2 of 94 and pO2 of more than 400. He was started on propofol and he was moved to the intensive care unit. The patient this morning remains sedated on propofol and is calm and comfortable. He is running on a propofol at 40 mcg/kg/min. IV fluids are running at normal saline at a rate of 100 cc an hour. He was given a total of 2 L in the emergency department. Subsequently, he was given a dose of Lasix 40 mg IV and is producing adequate amount of urine output. He is also on norepinephrine running at 0.04 mcg/kg/min. Most recent chest x-ray from this morning shows adequate positioning of the orotracheal tube. The patient has some mild pulm vascular congestion. No airspace disease or consolidation. No lung masses. No atelectasis or clear evidence of pneumonia. Subsequent blood gas from today shows a pH of 7.36 with a pCO2 of 54 and pO2 of 120. No significant orotracheal secretions. His renal function is stable with a creatinine of 0.8. Troponin initially was 0.01 and subsequent level was at 0.2 and the proBNP level was not elevated at 291. The viral panel including influenza, COVID-19 and RSV were all negative. He remains bronchospastic and wheezy and his peak airway pressure is around 37. He remains on a combination of bronchodilators and is currently on DuoNeb and IV Solu-Medrol. He was also started on empiric antibiotic coverage with IV Rocephin and Zithromax. His white cell count at 9.5 with a hemoglobin 14.1 and a platelet count of 156. Sodium is at 141, BUN is at 21 with a creatinine of 0.8 and the rest of the electrolytes are within normal limits. CAT scan of the brain has been done and it shows no acute intracranial process. There is some small vessel ischemic degenerative changes and evidence of cerebral atrophy. His EKG showing a normal sinus rhythm without any significant ST segment elevations. Going back to the history, the patient is a chronic smoker. Noted COPD and obstructive sleep apnea. He also has atrial flutter. He has had previous history of a CVA and the patient apparently has been functional post CVA. He has had a previous carotid artery dissection which led to today CVA. 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 No history of coronary artery disease. No history of any congestion heart failure. Family is at the bedside. On today's evaluation of 08/21/2023, the patient is being seen for a follow-up. The patient remains intubated on mechanical ventilator. This morning, the patient is calm and comfortable on propofol which is running at 35 mcg/kg/min. He is arousable months the sedation has been weaned off. A brief sedation ho liday was done yesterday and the patient was responsive. Meanwhile, the patient remains on the mechanical ventilator on assist-control mode with a rate of 28, tidal volume of 450, FiO2 40% with a PEEP of 5. Blood gas from today showed a pH of 7.36 with a pCO2 of 52 and pO2 of 85. Chest x-ray shows no acute abnormalities. CT angiogram of the chest was done yesterday and it showed no evidence of any pulmonary embolism. There was background COPD and some dependent atelectatic changes in the right lung base with small right-sided pleural effusion. Echocardiogram was done and showed no significant valvular abnormalities and the patient is a preserved LV function. The patient remains on low-dose norepinephrine which is running at 0.04 mcg/kg/min. Fluid balance is +825 cc over the past 24 hours. Based on all this, the patient was given a sedation holiday and the patient was showing adequate mentation. Subsequently, the patient had weaning parameters that are thick adequate and the patient was started on a spontaneous breathing trial with a pressure support of 5 and a PEEP of 5 for the next 30 minutes in consideration for extubation. Less bronchospastic and wheezy on today's evaluation. Remains on bronchodilators. Remains on steroids. Remains on broad-spectrum antibiotics which has a combination of Rocephin and Zithromax. Chest x-ray from today shows no significant interval change. Orotracheal tube is in a good location. Some right basilar atelectatic changes were again noted. 08/22/2023, the patient is awake and alert and extubated and the patient is currently on 4 L of O2 nasal cannula with a pulse ox of 95%. Still bronchospastic and wheezy. No chest pain. Chest x-ray from today shows no acute cardiopulmonary abnormalities. There are some increased pulmonary vascular markings. Denies having any chest pain. No cough or sputum production. Norepinephrine has been discontinued. No signs of any CO2 narcosis. No other complaints otherwise. On today's evaluation of 08/23/2023, the patient is on the medical floor and the patient has been transferred out of the intensive care unit. Feeling well. Less bronchospastic and wheezy. Utilizing his own CPAP at a pressure of 14 cm of water. Remains on DuoNeb updrafts. Remains on IV Solu-Medrol. Remains on empiric antibiotic coverage with IV Rocephin. Remains on anticoagulation with Xarelto. He is ambulating. The white cell count of 8.6 with a hemoglobin 14.1. BUN is at 35 with a creatinine of 0.66 and a sodium levels at 138. The patient is currently on 4 L of O2 nasal cannula with a pulse ox of 91%. No signs of any CO2 narcosis. The sputum sample was positive for haemophilus influenza and the patient remains on IV Rocephin. Objective - Vital Signs Vital signs: Vital Signs Temp 97.7 F 08/23/23 07:10 Pulse 72 08/23/23 11:54 Resp 16 08/23/23 11:54 BP 165/84 08/23/23 07:10 Pulse Ox 94 L 08/23/23 09:29 FiO2 40 08/22/23 05:00 Intake & Output 08/22/23 08/23/23 08/23/23 18:59 06:59 18:59 Intake Total 410 350 Output Total 920 500 Balance -510 -150 Weight 108.5 kg 108.5 kg Intake: IV 410 Azithromycin 500 mg In 250 Sodium Chloride 0.9% 250 ml @ 250 mls/hr IVPB DAILY@0700 [facility] Rx#: [id number] Sodium Chloride 0.9% 1, 160 000 ml @ 10 mls/hr IV . Q24H [facility] Rx#:[id number] Intake, IV Titration 50 Amount cefTRIAXone 2 gm In 50 Sodium Chloride 0.9% 50 ml @ 100 mls/hr IVPB Q24H [facility] Rx#:[id number] Oral 300 Output: Urine 920 500 Other: Voiding Method Indwelling Catheter Indwelling Catheter Toilet # Voids 1 # Bowel Movements 1 ABP, PAP, CO, CI - Last Documented Arterial Blood Pressure 155/57 - Exam GENERAL EXAM: 67-year-old white male, awake and alert and extubated to 4 L of O2 nasal cannula HEAD: Normocephalic and atraumatic EYES: Normal reaction of pupils, equal size. NOSE: Clear with pink turbinates. THROAT: No erythema or exudates. NECK: No masses, no JVD. CHEST: No chest wall deformity. LUNGS: Equal air entry with diffuse crackles and rhonchi. Breath sounds are equal and symmetrical and there is prolongation of isolation phase of breathing and expiratory wheezing heard bilaterally CVS: S1 and S2 normal with no audible murmur, regular rhythm. No extra heart sounds ABDOMEN: No hepatosplenomegaly, active bowel sounds, no guarding or rigidity. SPINE: No scoliosis or deformity SKIN: No rashes CENTRAL NERVOUS SYSTEM: No focal deficits, tone is normal in all 4 extremities. EXTREMITIES: There is no peripheral edema, clubbing, or cyanosis. Peripheral pulses are intact. - Labs CBC & Chem 7: 08/23/23 05:38 08/23/23 05:38 Labs: Abnormal Lab Results - Last 24 Hours (Table) 08/22/23 08/22/23 08/23/23 Range/Units 16:40 20:07 05:38 MCV 100.2 H (80.0-100.0) fL Lymphocytes # 0.4 L (1.0-4.8) k/uL Carbon Dioxide (22-30) mmol/L BUN (9-20) mg/dL Glucose (74-99) mg/dL POC Glucose (mg/dL) 130 H 185 H (70-110) mg/dL 08/23/23 08/23/23 08/23/23 Range/Units 05:38 07:07 11:51 MCV (80.0-100.0) fL Lymphocytes # (1.0-4.8) k/uL Carbon Dioxide 37 H (22-30) mmol/L BUN 35 H (9-20) mg/dL Glucose 159 H (74-99) mg/dL POC Glucose (mg/dL) 155 H 193 H (70-110) mg/dL Microbiology - Last 24 Hours (Table) 08/20/23 01:47 Blood Culture - Preliminary Blood 08/20/23 01:32 Blood Culture - Preliminary Blood 08/20/23 01:33 Gram Stain - Final Sputum Sputum Culture - Final Haemophilus influenzae Assessment and Plan Assessment: Acute hypoxemic and hypercapnic respiratory failure, typical of an acute COPD exacerbation and there may be a component of increased pulm vascular congestion as the patient has increased pulmonary vascular markings on his chest x-ray. CT of the chest shows no pulmonary. No evidence of pneumonia and small atelectatic change and small effusion in the right lung base. Less bronchospastic and wheezy on today's evaluation. Patient is currently extubated on 4 L of oxygen by nasal cannula. This was probably exacerbated by any acute haemophilus influenza tracheobronchitis Advanced COPD and the patient has been maintained on a combination of Dulera and Spiriva on an outpatient basis and uses albuterol as needed. He is a chronic smoker. Hypotension, recovered and the patient was resuscitated with fluids and pre ssors. Pressors have been discontinued Mild troponin leak, likely related to a type II myocardial ischemia. No evidence of any acute ischemic changes on the EKG. Cardiac rhythm is sinus. The cardiac rhythm remained sinus and the patient has a preserved LV function on echocardiogram Altered mentation probably just to CO2 narcosis, recovered Obstructive sleep apnea, with home CPAP device Chronic ongoing tobacco dependence History of hypertension History of paroxysmal atrial fibrillation/flutter, anticoagulated on Xarelto in addition to metoprolol 100 mg p.o. XL 1 tablet a day History of previous carotid artery dissection and CVA Recent history of thymectomy for thymus cancer followed by radiation therapy. History of ischemic stroke several years back, the patient is functional according to the family Occlusion and stenosis of the carotid artery on the left Secondary polycythemia, history of Plan: Patient remains extubated currently the patient on the medical floor Titrate oxygen flow to maintain saturation above 90%, currently on 40 Suboxone by nasal cannula Utilizing his home CPAP at a pressure of 14 cm of water Change IV fluids to KVO Obtain echocardiogram was noted and the patient has a preserved LV function CTA of the chest chest showed no evidence of any pulmonary embolism Cultures are still pending for now Check procalcitonin level is at 0.28, the patient tested positive for haemophilus influenza in the sputum and the patient is currently on IV Rocephin Continue Symbicort 2 puffs twice a day Continue to follow
[2023-08-23 17:16] LABS: Glucose,Whole Blood 184 mg/dL (70-110)
[2023-08-23 19:50] LABS: Glucose,Whole Blood 270 mg/dL (70-110)
[2023-08-24 07:44] LABS: Glucose,Whole Blood 146 mg/dL (70-110)
[2023-08-24 09:25] VITALS: BP 172/98; RESP 20; TEMP 98
[2023-08-24 11:44] VITALS: PULSE 86
--- NOTE | 2023-08-24 11:50 | P.DS ---
Providers Date of admission: 08/20/23 04:54 Expected date of discharge: 08/24/23 Attending physician: Trevor Pastor MD Consults: 08/20/23 04:50 Consult Physician Stat Consulting Provider: Portia Patricia Consult Reason/Comments: Acute respiratory failure Do you want consulting provider notified?: Yes Primary care physician: Stated None Hospital Course: Discharge Diagnosis: Acute encephalopthy Acute Hypercapnic Respiratory failure Acute respiratory acidosis Acute exacerbation of Severe COPD Haemophilus influenzae tracheobronchitis HTN urgency on arrival and now hypotensive A fib anticoagulated with xarelto Type II NSTEMI Nicotine dependency Leukocytosis, reactive and resolved Hx of thymic cancer in remission Hospital Course: Patient is a 67-year-old male with A fib Anticoagulated with Xarelto, COPD, HLD, and HTN who was brought to the ER via EMS after having activated for shortness of breath. By the time he arrived to the ER he was unresponsive and unable to provide any meaningful history. The patient was subsequently intubated. During that time he was noted to be hypertensive with a blood pressure greater than 200 during transport to the ER, and on arrival his blood pressure was 174/89. Evaluation in the ER included CBC, coags, D-dimer, and CMP which were remarkable for white blood cell count of 14.4, INR 1.2. ABG was remarkable for CO2 of 94 and pH of 7.11. Urinalysis was unremarkable. Influenza A/B/COVID-19/RSV was negative. Head CT was performed in the ER but read was unavailable at time of admission. Chest x-ray demonstrated diffuse interstitial infiltrate with small bilateral pleural effusions. He was admitted to the ICU for further monitoring. Was felt that he likely had flash pulmonary edema due to malignant hypertension. However he became hypotensive during the intubation process with a blood pressure down to 72/38.Head CT came back with no acute intracranial abnormality. He had an arterial line placed. He was seen by critical care. He was started on antibiotics with rocephin and zithromax. Norepinephrine was weaned on 08/20 and the patient was successfully extubated to BiPAP and then weaned to nasal cannula later that day. Mental status at baseline at the time of discharge. Sputum cultures positive for haemophilus influenza. Echo reviewed with ejection fraction 55% RV not well-visualized. CTA of the chest: No evidence of pulmonary embolism, dependent airspace disease right lower lobe with small pleural effusion. Blood pressure improved. Cardiology assessed patient, recommending outpatient follow-up. Patient to go home on supplemental oxygen, as well as oral antibiotics, and oral steroids.. Patient seen and examined at bedside. Vital signs reviewed and stable. General: Nontoxic, no distress, appears at stated age Derm: Warm, dry Head: Atraumatic, normocephalic, symmetric Eyes: EOMI, no lid lag, anicteric sclera Mouth: No lip lesion, mucus membranes moist Cardiovascular: S1S2 reg, no murmur Lungs: CTA bilateral, no rhonchi, no rales, no accessory muscle use, supplemental oxygen Abdominal: Soft, nontender to palpation, no guarding, no appreciable organomegaly Ext: No gross muscle atrophy, no edema, no contractures Neuro: CN II-XI grossly intact, no focal neuro deficits Psych: Alert, oriented, appropriate affect A total of 33 minutes of time were spent preparing this complex discharge summary. Patient was discharged on 08/24/2023 at 1149. Patient Condition at Discharge: Stable Plan - Discharge Summary Discharge Rx Participant: No New Discharge Prescriptions: New Cefdinir 300 mg PO Q12HR #2 cap predniSONE [Deltasone] 20 mg PO DAILY #2 tab Pantoprazole [Protonix] 40 mg PO -[facility] #60 tab Budesonide-Formot 160-4.5 Mcg [Symbicort 160-4.5 Mcg Inhaler] 2 puff INHALATION RT-BID #1 each Continue Zinc Gluconate [Zinc] 50 mg PO DAILY Tiotropium 18 Mcg/Puff [Spiriva] 1 puff INHALATION RT-DAILY Multivitamins, Thera [Multivitamin (formulary)] 1 tab PO DAILY Glucosamine/Chondr Escobedo A Sod [Osteo Bi-Flex Caplet] 1 tab PO DAILY Pravastatin Sodium [Pravachol] 40 mg PO HS Metoprolol Succinate (ER) [Toprol XL] 100 mg PO DAILY Amiodarone [Cordarone] 200 mg PO DAILY Cholecalciferol [Vitamin D3 (25 Mcg = 1000 Iu)] 25 mcg PO DAILY Rivaroxaban [Xarelto] 20 mg PO DAILY Ezetimibe [Zetia] 10 mg PO DAILY Discharge Medication List Amiodarone [Cordarone] 200 mg PO DAILY 08/20/23 [History] Cholecalciferol [Vitamin D3 (25 Mcg = 1000 Iu)] 25 mcg PO DAILY 08/20/23 [History] Ezetimibe [Zetia] 10 mg PO DAILY 08/20/23 [History] Glucosamine/Chondr Escobedo A Sod [Osteo Bi-Flex Caplet] 1 tab PO DAILY 08/20/23 [History] Metoprolol Succinate (ER) [Toprol XL] 100 mg PO DAILY 08/20/23 [History] Multivitamins, Thera [Multivitamin (formulary)] 1 tab PO DAILY 08/20/23 [History] Pravastatin Sodium [Pravachol] 40 mg PO HS 08/20/23 [History] Rivaroxaban [Xarelto] 20 mg PO DAILY 08/20/23 [History] Tiotropium 18 Mcg/Puff [Spiriva] 1 puff INHALATION RT-DAILY 08/20/23 [History] Zinc Gluconate [Zinc] 50 mg PO DAILY 08/20/23 [History] Budesonide-Formot 160-4.5 Mcg [Symbicort 160-4.5 Mcg Inhaler] 2 puff INHALATION RT-BID #1 each 08/24/23 [Rx] Cefdinir 300 mg PO Q12HR #2 cap 08/24/23 [Rx] Pantoprazole [Protonix] 40 mg PO AC-BRKFST #60 tab 08/24/23 [Rx] predniSONE [Deltasone] 20 mg PO DAILY #2 tab 08/24/23 [Rx] Follow up Appointment(s)/Referral(s): None,Stated [Primary Care Provider] - 1-2 days [facility] [NON-STAFF] - 1 Week [facility] [NON-STAFF] - As Needed Portia Patricia MD [STAFF PHYSICIAN] - 1 Week Lior Braun MD [STAFF PHYSICIAN] - 1 Week Patient Instructions/Handouts: COPD (Chronic Obstructive Pulmonary Disease) (DC) Activity/Diet/Wound Care/Special Instructions: Please see your PCP, pulmonology, and cardiology. Discharge Disposition: HOME WITH HOME HEALTH SERVICES
[2023-08-24 12:24] LABS: Glucose,Whole Blood 235 mg/dL (70-110)
--- NOTE | 2023-08-24 14:14 | P.PN ---
Subjective Progress Note Date: 08/24/23 This is a 67-year-old male patient with multiple medical problems including advanced COPD maintained on a combination of Dulera Spiriva on an outpatient basis in addition to obstructive sleep apnea was maintained on CPAP and O2 overnight. The patient is a chronic smoker. The patient was admitted to the intensive care unit because of acute hypercapnic respiratory failure. The patient came into the emergency department yesterday for shortness of breath. He was apparently loading and transporting some material and he became progressively more short of breath and altered and he became unresponsive. He was apparently supported with a [id number]. In the emergency department, the patient had a systolic blood pressure above 200. He was unresponsive. He was also hypotensive. Systolic blood pressure was in the mid 70s. He was still oxygenating adequately. The patient was intubated and placed on mechanical ventilator. His initial blood gases showed a pH of 7.11 with a pCO2 of 94 and pO2 of more than 400. He was started on propofol and he was moved to the intensive care unit. The patient this morning remains sedated on propofol and is calm and comfortable. He is running on a propofol at 40 mcg/kg/min. IV fluids are running at normal saline at a rate of 100 cc an hour. He was given a total of 2 L in the emergency department. Subsequently, he was given a dose of Lasix 40 mg IV and is producing adequate amount of urine output. He is also on norepinephrine running at 0.04 mcg/kg/min. Most recent chest x-ray from this morning shows adequate positioning of the orotracheal tube. The patient has some mild pulm vascular congestion. No airspace disease or consolidation. No lung masses. No atelectasis or clear evidence of pneumonia. Subsequent blood gas from today shows a pH of 7.36 with a pCO2 of 54 and pO2 of 120. No significant orotracheal secretions. His renal function is stable with a creatinine of 0.8. Troponin initially was 0.01 and subsequent level was at 0.2 and the proBNP level was not elevated at 291. The viral panel including influenza, COVID-19 and RSV were all negative. He remains bronchospastic and wheezy and his peak airway pressure is around 37. He remains on a combination of bronchodilators and is currently on DuoNeb and IV Solu-Medrol. He was also started on empiric antibiotic coverage with IV Rocephin and Zithromax. His white cell count at 9.5 with a hemoglobin 14.1 and a platelet count of 156. Sodium is at 141, BUN is at 21 with a creatinine of 0.8 and the rest of the electrolytes are within normal limits. CAT scan of the brain has been done and it shows no acute intracranial process. There is some small vessel ischemic degenerative changes and evidence of cerebral atrophy. His EKG showing a normal sinus rhythm without any significant ST segment elevations. Going back to the history, the patient is a chronic smoker. Noted COPD and obstructive sleep apnea. He also has atrial flutter. He has had previous history of a CVA and the patient apparently has been functional post CVA. He has had a previous carotid artery dissection which led to today CVA. 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 No history of coronary artery disease. No history of any congestion heart failure. Family is at the bedside. On today's evaluation of 08/21/2023, the patient is being seen for a follow-up. The patient remains intubated on mechanical ventilator. This morning, the patient is calm and comfortable on propofol which is running at 35 mcg/kg/min. He is arousable months the sedation has been weaned off. A brief sedation ho liday was done yesterday and the patient was responsive. Meanwhile, the patient remains on the mechanical ventilator on assist-control mode with a rate of 28, tidal volume of 450, FiO2 40% with a PEEP of 5. Blood gas from today showed a pH of 7.36 with a pCO2 of 52 and pO2 of 85. Chest x-ray shows no acute abnormalities. CT angiogram of the chest was done yesterday and it showed no evidence of any pulmonary embolism. There was background COPD and some dependent atelectatic changes in the right lung base with small right-sided pleural effusion. Echocardiogram was done and showed no significant valvular abnormalities and the patient is a preserved LV function. The patient remains on low-dose norepinephrine which is running at 0.04 mcg/kg/min. Fluid balance is +825 cc over the past 24 hours. Based on all this, the patient was given a sedation holiday and the patient was showing adequate mentation. Subsequently, the patient had weaning parameters that are thick adequate and the patient was started on a spontaneous breathing trial with a pressure support of 5 and a PEEP of 5 for the next 30 minutes in consideration for extubation. Less bronchospastic and wheezy on today's evaluation. Remains on bronchodilators. Remains on steroids. Remains on broad-spectrum antibiotics which has a combination of Rocephin and Zithromax. Chest x-ray from today shows no significant interval change. Orotracheal tube is in a good location. Some right basilar atelectatic changes were again noted. 08/22/2023, the patient is awake and alert and extubated and the patient is currently on 4 L of O2 nasal cannula with a pulse ox of 95%. Still bronchospastic and wheezy. No chest pain. Chest x-ray from today shows no acute cardiopulmonary abnormalities. There are some increased pulmonary vascular markings. Denies having any chest pain. No cough or sputum production. Norepinephrine has been discontinued. No signs of any CO2 narcosis. No other complaints otherwise. On today's evaluation of 08/23/2023, the patient is on the medical floor and the patient has been transferred out of the intensive care unit. Feeling well. Less bronchospastic and wheezy. Utilizing his own CPAP at a pressure of 14 cm of water. Remains on DuoNeb updrafts. Remains on IV Solu-Medrol. Remains on empiric antibiotic coverage with IV Rocephin. Remains on anticoagulation with Xarelto. He is ambulating. The white cell count of 8.6 with a hemoglobin 14.1. BUN is at 35 with a creatinine of 0.66 and a sodium levels at 138. The patient is currently on 4 L of O2 nasal cannula with a pulse ox of 91%. No signs of any CO2 narcosis. The sputum sample was positive for haemophilus influenza and the patient remains on IV Rocephin. On today's evaluation of 08/24/2023, the patient is doing well. No specific complaints. No major difficulties. Ambulating. He seems to be ready to go home. He has purchased his own portable oxygen concentration and the patient has a [employer] unit. History requiring oxygen at 4 L/min nasal cannula and desaturates without oxygen. Nevertheless, he is awake and alert and is utilizing his CPAP and he has no other new complaints. No new labs are available from today. Objective - Vital Signs Vital signs: Vital Signs Temp 98.0 F 08/24/23 07:43 Pulse 86 08/24/23 11:16 Resp 20 08/24/23 07:43 BP 172/98 08/24/23 07:43 Pulse Ox 95 08/24/23 07:43 FiO2 40 08/22/23 05:00 Intake & Output 08/23/23 08/24/23 08/24/23 18:59 06:59 18:59 Intake Total 550 Output Total 200 300 Balance -200 250 Weight 108.5 kg 111.5 kg Intake: Intake, IV Titration 50 Amount cefTRIAXone 2 gm In 50 Sodium Chloride 0.9% 50 ml @ 100 mls/hr IVPB Q24H FREDY Rx#:[id number] Oral 500 Output: Urine 200 300 Other: Voiding Method Toilet Toilet Toilet Urinal Urinal # Voids 1 ABP, PAP, CO, CI - Last Documented Arterial Blood Pressure 155/57 - Exam GENERAL EXAM: 67-year-old white male, awake and alert and extubated to 4 L of O2 nasal cannula HEAD: Normocephalic and atraumatic EYES: Normal reaction of pupils, equal size. NOSE: Clear with pink turbinates. THROAT: No erythema or exudates. NECK: No masses, no JVD. CHEST: No chest wall deformity. LUNGS: Equal air entry with diffuse crackles and rhonchi. Breath sounds are equal and symmetrical and there is prolongation of isolation phase of breathing and expiratory wheezing heard bilaterally CVS: S1 and S2 normal with no audible murmur, regular rhythm. No extra heart sounds ABDOMEN: No hepatosplenomegaly, active bowel sounds, no guarding or rigidity. SPINE: No scoliosis or deformity SKIN: No rashes CENTRAL NERVOUS SYSTEM: No focal deficits, tone is normal in all 4 extremities. EXTREMITIES: There is no peripheral edema, clubbing, or cyanosis. Peripheral pulses are intact. - Labs CBC & Chem 7: 08/23/23 05:38 08/23/23 05:38 Labs: Abnormal Lab Results - Last 24 Hours (Table) 08/23/23 08/23/23 08/23/23 Range/Units 11:51 17:15 19:48 POC Glucose (mg/dL) 193 H 184 H 270 H (70-110) mg/dL 08/24/23 Range/Units 07:43 POC Glucose (mg/dL) 146 H (70-110) mg/dL Microbiology - Last 24 Hours (Table) 08/20/23 01:47 Blood Culture - Preliminary Blood 08/20/23 01:32 Blood Culture - Preliminary Blood Assessment and Plan Assessment: Acute hypoxemic and hypercapnic respiratory failure, typical of an acute COPD exacerbation and there may be a component of increased pulm vascular congestion as the patient has increased pulmonary vascular markings on his chest x-ray. CT of the chest shows no pulmonary. No evidence of pneumonia and small atelectatic change and small effusion in the right lung base. Less bronchospastic and wheezy on today's evaluation. Patient is currently extubated on 4 L of oxygen by nasal cannula. This was probably exacerbated by any acute haemophilus influenza tracheobronchitis Advanced COPD and the patient has been maintained on a combination of Dulera and Spiriva on an outpatient basis and uses albuterol as needed. He is a chronic smoker. Hypotension, recovered and the patient was resuscitated with fluids and pressors. Pressors have been discontinued Mild troponin leak, likely related to a type II myocardial ischemia. No evidence of any acute ischemic changes on the EKG. Cardiac rhythm is sinus. The cardiac rhythm remained sinus and the patient has a preserved LV function on echocardiogram Altered mentation probably just to CO2 narcosis, recovered Obstructive sleep apnea, with home CPAP device Chronic ongoing tobacco dependence History of hypertension History of paroxysmal atrial fibrillation/flutter, anticoagulated on Xarelto in addition to metoprolol 100 mg p.o. XL 1 tablet a day History of previous carotid artery dissection and CVA Recent history of thymectomy for thymus cancer followed by radiation therapy. History of ischemic stroke several years back, the patient is functional according to the family Occlusion and stenosis of the carotid artery on the left Secondary polycythemia, history of Plan: Clinically stable Respiratory status is stable May be able to discharge the patient home on a prednisone burst taper Home O2 at 4 L to be weaned off to maintain saturation above 90% Home oxygen concentrator Home CPAP therapy Completed a course of Omnicef on outpatient basis regarding haemophilus influenza tracheobronchitis/pneumonia. Continue Symbicort 2 puffs twice a day Continue to follow on outpatient basis.
== END 2023-08-24 14:23 | disposition home health service (06) | DRG 208 ==
LOC: EC 01:08 → 2SICU 04:54 → 5NMEDONC 08-23 00:31
PROVIDERS: ADMIT Internal Medicine; ATTEND Internal Medicine
PROC: 5A1935Z Respiratory Ventilation, Less than 24 Consecutive Hours (ICD-10-PCS; principal; 2023-08-20)
PROC: 0BH17EZ Insertion of Endotracheal Airway into Trachea, Via Natural or Artificial Opening (ICD-10-PCS; 2023-08-20)
PROC: 4A133B1 Monitoring of Arterial Pressure, Peripheral, Percutaneous Approach (ICD-10-PCS; 2023-08-20)
PROC: 4A133J1 Monitoring of Arterial Pulse, Peripheral, Percutaneous Approach (ICD-10-PCS; 2023-08-20)
PROC: 03HY32Z Insertion of Monitoring Device into Upper Artery, Percutaneous Approach (ICD-10-PCS; 2023-08-20)
PROC: 02HV33Z Insertion of Infusion Device into Superior Vena Cava, Percutaneous Approach (ICD-10-PCS; 2023-08-20)
PROC: B5181ZA Fluoroscopy of Superior Vena Cava using Low Osmolar Contrast, Guidance (ICD-10-PCS; 2023-08-20)
PROC: B548ZZA Ultrasonography of Superior Vena Cava, Guidance (ICD-10-PCS; 2023-08-20)
DX: J96.22 Acute and chronic respiratory failure with hypercapnia (principal); G93.41 Metabolic encephalopathy; A41.9 Sepsis, unspecified organism; I21.A1 Myocardial infarction type 2; R65.21 Severe sepsis with septic shock; J81.0 Acute pulmonary edema; I16.1 Hypertensive emergency; J91.0 Malignant pleural effusion; I48.92 Unspecified atrial flutter; J96.21 Acute and chronic respiratory failure with hypoxia; E66.9 Obesity, unspecified; D72.829 Elevated white blood cell count, unspecified; D75.1 Secondary polycythemia; I48.0 Paroxysmal atrial fibrillation; F17.210 Nicotine dependence, cigarettes, uncomplicated; E78.5 Hyperlipidemia, unspecified; I65.22 Occlusion and stenosis of left carotid artery; G47.33 Obstructive sleep apnea (adult) (pediatric); I95.81 Postprocedural hypotension; Z79.01 Long term (current) use of anticoagulants
CPT/HCPCS: 31500; 36415; 36556; 36600; 70450; 71045; 71275; 80048; 80053; 81001; 82550; 82805; 83036; 83605; 83735; 83880; 84145; 84484; 85025; 85379; 85610; 85730; 87040; 87070; 87205; 87636; 93005; 93306; 94002; 94003; 94640; 94660; 94760; 96361; 96365; 96366; 96367; 96375; 96376; 99291

== ENCOUNTER 2023-09-22 19:38 | Outpatient (CLI) | payer MEDICARE ==
--- NOTE | 2023-09-24 17:07 | P.PCN ---
Date of Procedure: 09/22/23 Operative Findings: Polysomnography report Date of service is 09/22/2023 History this is a 67-year-old male patient, who was in the hospital for an acute hypoxic/hypercapnic respiratory failure related to COPD exacerbation in addition to a component of CHF. The patient has been COPD and he has been maintained on a combination of Dulera and Spiriva. His COPD is severe with an FEV1 of 41% of predicted. He is known to have obstructive sleep apnea. He has been utilizing his CPAP machine at home and his machine needed to be updated. He was being treated with a CPAP pressure of 14 cm of water. He has previous history of carotid artery dissection with secondary CVA from which she has recovered. He has previous history of thymus cancer and she has undergone radiation therapy to his thymus following a thymectomy. He is also known to have chronic atrial fibrillation. Technical description The patient was studied using a standard complex polysomnography protocol that included recording of the 2 EKG, Central, occipital and frontal EEG, right and left outer canthus EOG, submental EMG, right and left anterior tibialis EMG, respiratory airflow by thermocouple and or pressure/flow transducer, respiratory efforts by abdominal and thoracic PVDF belts, oxygen saturation by cable oximetry. Position by observation synchronized the PSG. Equipment used: [employer]. Sleep characteristics The total recording duration was 420 minutes. The total sleep time was 194.5 minutes. The wake after sleep onset time was 210 minutes. Overall sleep visit was 46.3%. The latency to sleep onset was 15 minutes. The latency to REM sleep was not cannulated and the patient did not go into REM sleep. The sleep architecture was catheterized by 1.3% stage I, 97.4% stage II and I 0.3% stage III. The total arousal index was 28.7 Respiratory analysis This sleep study showed a total of 38 obstructive events of which 37 were obstructive apneas, 0 were mixed apneas and there was only 1 hypopnea and the resulting AHI was 11.7. The patient was essentially started during non-REM sleep Oxygenation analysis The patient had a baseline pulse ox of 95%. Oxygen was added during the sleep study. The patient while on 2 L was able to maintain a pulse ox above 89%. Arousable events The patient had a total of 93 arousals with an index of 28.7. Respiratory arousal index was 5.9 Periodic limb movement summary The patient had a total of 43 periodic limb movements with an index of 16.3. No significant arousals Cardiac summary Average heart rate was 54 with a minimum heart rate of 62 and a maximum heart rate of 68. The patient was in atrial fibrillation Assessment Obstructive sleep apnea. The patient was found to have an AHI of 11.7 nevertheless, this is an underestimate of his disease and the patient was unable to sleep without his CPAP. He is a longtime CPAP user. This was done to r eestablish diagnosis and provide him a new CPAP machine. The overall sleep efficiency was calculated to be 46.3%. The patient abnormal sleep architecture while off the CPAP with absent REM and overall sensation of stage II sleep with a high arousal index. As such, despite the limitation of diminished sleep efficiency and delayed sleep onset, the patient demonstrated ongoing respiratory events that are worthwhile treating. Accordingly, the patient will be given a CPAP machine. Chronic A-fib COPD with an FEV1 of 41% of predicted Previous history of CVA secondary to carotid artery dissection History of thymus tumor postresection and radiation therapy Obesity with a BMI of 37.3 Plan Will proceed by ordering this patient an APAP unit. He will be given an APAP and this will be set in APAP mode pressures of 7/14 cm of water. Started on adjustments of the pressure setting will be done upon follow-up in the office. Optimize COPD. Optimize comorbidities. Recommend weight loss. Will continue to follow.
== END 2023-09-23 06:00 | disposition home or self-care (01) ==
LOC: 3 N SLEEP 19:38
PROVIDERS: ATTEND Internal Medicine Critical Care Medicine
DX: G47.33 Obstructive sleep apnea (adult) (pediatric) (principal); I48.20 Chronic atrial fibrillation, unspecified; J44.1 Chronic obstructive pulmonary disease with (acute) exacerbation; E66.9 Obesity, unspecified; I50.9 Heart failure, unspecified; J96.02 Acute respiratory failure with hypercapnia; Z68.37 Body mass index [BMI] 37.0-37.9, adult; Z85.238 Personal history of other malignant neoplasm of thymus; Z86.73 Personal history of transient ischemic attack (TIA), and cerebral infarction without residual deficits; Z92.3 Personal history of irradiation; Z79.01 Long term (current) use of anticoagulants; Z79.51 Long term (current) use of inhaled steroids
CPT/HCPCS: 95810

== ENCOUNTER 2024-04-13 09:48 | Day surgery (SDC) | payer MEDICARE ==
[2024-04-08 10:02] VITALS: BMI 40.3
[2024-04-13] MEDS: ASPIRIN 325 MG TAB PO STA (08:28)
[~2024-04-13 09:48] MED LIST: ALPRAZolam 0.25 MG TAB PO PRN; ALPRAZolam 0.5 MG TAB PO PRN; ATORVASTATIN 80 MG TAB PO STA; HEPARIN SODIUM,PORCINE (1 ML) 2,500 UNIT in SODIUM CHLORIDE 0.9% 250 ML IRRIGATION PRN; HEPARIN SODIUM,PORCINE 10,000 UNIT in SODIUM CHLORIDE 0.9% 1,000 ML IRRIGATION PRN; NITROGLYCERIN SL TABS 0.4 MG TAB SUBLINGUAL PRN
[2024-04-13] MEDS: SODIUM CHLORIDE 0.9% 1,000 ML in EMPTY BAG 1 BAG IV SCH (09:57)
[2024-04-13] MEDS: IV FLUID CONTINUATION 1,000 ML IV ONE (10:08)
[2024-04-13 10:13] LABS: Glucose,Whole Blood 97 mg/dL (70-110)
[2024-04-13 10:17] VITALS: TEMP 97.6
[2024-04-13 10:30] LABS: Basophils % (A) 1 %; Eosinophils # (A) 0.2 k/uL (0-0.7); Eosinophils % (A) 3 %; HCT 49.6 % (39.0-53.0); HGB 15.8 gm/dL (13.0-17.5); Lymphocytes % (A) 13 %; MCH 30.4 pg (25.0-35.0); MCHC 31.8 g/dL (31.0-37.0); MCV 95.8 fL (80.0-100.0); Mean Platelet Volume 8.7; Monocytes # (A) 0.5 k/uL (0-1.0); Monocytes % (A) 8 %; Neutrophils # (A) 5.5 k/uL (1.3-7.7); Neutrophils % (A) 75 %; Platelet Count 146 k/uL (150-450); RBC 5.18 m/uL (4.30-5.90); RDW 13.2 % (11.5-15.5); WBC 7.3 k/uL (3.8-10.6)
[2024-04-13 10:38] LABS: African American GFR (CKD) >90 (>60 ml/min/1.73 sqM); Anion Gap 7 mmol/L; Blood Urea Nitrogen 17 mg/dL (9-20); Calcium 9.5 mg/dL (8.4-10.2); Carbon Dioxide 33 mmol/L (22-30); Chloride 100 mmol/L (98-107); Glucose 110 mg/dL (74-99); Non-African American GFR(CKD) >90 (>60 ml/min/1.73 sqM); Potassium 4.5 mmol/L (3.5-5.1); Sodium 140 mmol/L (137-145)
[2024-04-13] MEDS: METOPROLOL SUCCINATE (ER) 100 MG TAB.ER.24H PO STA (11:42)
[2024-04-13] MEDS: HEPARIN SODIUM,PORCINE 10,000 UNIT in SODIUM CHLORIDE 0.9% 1,000 ML IRRIGATION ONE (13:02)
[2024-04-13] MEDS: HEPARIN SODIUM,PORCINE (1 ML) 2,500 UNIT in SODIUM CHLORIDE 0.9% 250 ML IRRIGATION ONE (13:02)
[2024-04-13] MEDS: fentaNYL (PF) 50 MCG/1 ML VIAL IVP ONE (13:15)
[2024-04-13] MEDS: MIDAZOLAM 2 MG/2 ML VIAL IVP ONE (13:15)
[2024-04-13] MEDS: LIDOCAINE 1% INJ 10MG/ML (20 ML MDV) SQ ONE (13:20)
[2024-04-13] MEDS: VERAPAMIL SYRINGE (5 MG/10 ML) INTRAARTER ONE (13:22)
[2024-04-13] MEDS: HEPARIN SODIUM 1,000 UN/ML (10ML VL) IVP ONE (13:24)
[2024-04-13] MEDS: IOPAMIDOL-370 100ML BTL INJ ONE (13:31)
--- NOTE | 2024-04-13 13:36 | P.CARDCATH ---
Description of Procedure: PROCEDURES PERFORMED: Left heart catheterization, bilateral coronary angiography, ultrasound guided arterial access INDICATION: abnormal stress test CONSENT:I have discussed the risks, benefits and alternative therapies for the above-mentioned procedure and for both sedation/analgesia as well as necessary blood product administration, if indicated, as they pertain to this patient. The patient has indicated understanding and acceptance of the risks and procedures discussed. PROCEDURE: After the risks, benefits and alternatives of the above mentioned procedure explained in detail with the patient, informed consent was obtained. Patient was taken to the catheterization lab and prepped and draped in usual fashion. Ultrasound guidance was used to assess for arterial access. 1% lidocaine was used to anesthetize the right radial artery. A 6-Sammarinese sheath was placed in the right radial artery using modified Seldinger technique and ultrasound guidance. Left coronary angiography was performed with a 5-Sammarinese JL 3.5 catheter and right coronary angiography was performed with a 5-Sammarinese FR5 catheter in various views. A 5-Sammarinese FR5 catheter was inserted into the left ventricle and pressure measurements were obtained. The right radial sheath was removed and a TR band was placed with hemostasis achieved. The patient to lerated the procedure well. Patient was transported back to the post catheterization holding area in stable condition. Conscious Sedation: Patient was monitored under the direct supervision of myself for conscious sedation using Versed and fentanyl for a total duration of 12 minutes HEMODYNAMICS: Aorta: 143/74 LV: 135/12, LVEDP 20 SELECTIVE CORONARY ARTERIOGRAPHY: LEFT MAIN: The left main is a large caliber vessel which bifurcates into the LAD and circumflex. There is no significant stenosis. LEFT ANTERIOR DESCENDING CORONARY ARTERY: LAD is a large caliber vessel which wraps around to the apex. There are mild luminal irregularities with proximal and mid LAD 10-20% stenosis. LEFT CIRCUMFLEX CORONARY ARTERY: Left circumflex is a moderate caliber vessel with mild 10% stenosis. RIGHT CORONARY ARTERY: The right coronary artery is a large caliber vessel which gives off a PDA and PLV branch and is the dominant vessel. There are mild luminal irregularities of the proximal RCA with 10-20% stenosis. FINAL IMPRESSION: 1. Mild CAD as described above with mild luminal irregularities, 10-20% LAD and RCA stenosis 2. Elevated left sided filling pressures PLAN: 1. Aggressive risk factor modification per most recent ACC/AHA guidelines. 2. Follow-up in the office in 1-2 weeks.
[2024-04-13 14:52] VITALS: RESP 16
[2024-04-13 17:13] VITALS: BP 121/64; PULSE 58
== END 2024-04-13 16:40 | disposition home or self-care (01) ==
LOC: CATHCVL 09:48
PROVIDERS: ATTEND Internal Medicine
DX: I25.10 Atherosclerotic heart disease of native coronary artery without angina pectoris (principal); J44.9 Chronic obstructive pulmonary disease, unspecified; I48.0 Paroxysmal atrial fibrillation; I87.2 Venous insufficiency (chronic) (peripheral); I21.4 Non-ST elevation (NSTEMI) myocardial infarction; F17.210 Nicotine dependence, cigarettes, uncomplicated; Z82.3 Family history of stroke; Z79.51 Long term (current) use of inhaled steroids; Z79.899 Other long term (current) drug therapy
CPT/HCPCS: 80048; 85025; 93458; 99152; J2250; J1644 ×3; J2003; Q9967; J3010